=== PATIENT | male | born 1955 | race Caucasian/White ===

== ENCOUNTER 2021-11-30 00:06 | Day surgery (SDC) | payer MEDICARE, SELFPAY ==
[2021-11-04 12:41] VITALS: BMI 24.4
--- NOTE | 2021-11-15 13:58 | PC.NURSE ---
Reached patient regarding new scheduled colonoscopy procedure times for 11/30/21. Patient states there has been no changes to medical history since last phone call. He did state that he has stopped taking his thyroid medication, which has since been updated in his MAR. Efrain is aware of his updated procedure times and verbalizes understanding of prep instructions.
[2021-11-30 10:55] VITALS: BP 128/82; PULSE 64; RESP 18; TEMP 36.4; O2SAT 99
[2021-11-30] MEDS: LACTATED RINGERS 1,000 ML 150 ML IV CONT (10:56)
--- NOTE | 2021-11-30 11:15 | P.PNAN_ITS ---
Anes - Initial Pre Proc Eval Procedure: Operation Date: 11/30/21 11:30 Proposed Procedures p Screening Colonoscopy - Josemanuel Dumont MD Date/Time: 11/30/21 11:15 Surgeon: Josemanuel Dumont MD Pre Op Diagnosis: neoplasm screening Patient Data Age: 66 Gender: M Height: 1.8 m Weight: 79.7 kg Last Vital Signs Temp 36.4 C 11/30/21 10:55 Pulse 64 11/30/21 10:55 Resp 18 11/30/21 10:55 BP 128/82 11/30/21 10:55 Pulse Ox 99 11/30/21 10:55 O2 Del Method Room Air 11/30/21 10:55 Allergies Allergy/AdvReac Type Severity Reaction Status Date / Time No Known Allergies Allergy Verified 11/30/21 10:54 Home Medications Medication Instructions Recorded Confirmed Type aspirin 81 mg tablet,delayed 81 mg PO DAILY 10/07/21 11/30/21 History release (Adult Low Dose Aspirin) multivitamin (Daily Multi-Vitamin 1 tablet PO DAILY 10/07/21 11/30/21 History tablet) Patient hx anesthesia problems: none Family hx anesthesia problems: none Results Review: All pre-operative results and documents have been reviewed as part of the pre- operative evaluation. [facility] Surgical History Surgical History (Updated 11/30/21 @ 11:18 by Patrice Tesfaye MD) H/O colonoscopy Social History Social History Smoking status: Former smoker Second hand tobacco smoke exposure: No Alcohol intake: current Drinks per week: 3 Substance use type: does not use Living arrangements: with family Spiritual care concerns: No Anes - Eval Final PreProcedure Day of Procedure 11/30/21 11:15 Patient weight: normal Heart: regular rate and rhythm Lungs: clear to auscultation Airway: Mallampati scale class 1 Neurological: alert and oriented Last oral intake: >/= 8 hours ASA classification: I Emergent: no Anesthetic plan: proceed Anesthesia type and monitoring: general GIVS and standard monitoring Results Review: All pre-operative results and documents have been reviewed as part of the pre- operative evaluation. Informed Consent: The patient's anesthetic plan and its attendant risks and benefits were discussed with the patient/family/POA. Questions were solicited and answers provided to the satisfaction of the patient/family/POA.
--- NOTE | 2021-11-30 11:44 | P.HP_ITS ---
H&P: HPI History of Present Illness Date/Time: 11/30/21 11:44 Chief Complaint: Neoplasia screening. Narrative: This is a 66-year-old white male patient who presents for neoplasia screening colonoscopy. Patient's current weight appetite and bowel movements are normal. He denies abdominal pain. He has had no bleeding. Family history is noncontributory. Patient's last colonoscopy was 10 years ago. He presents today for neoplasia screening. Review of Systems Review of Systems: Review systems is noncontributory. [facility] Surgical History Surgical History (Updated 11/30/21 @ 11:18 by Patrice Tesfaye MD) H/O colonoscopy Social History Social History Smoking status: Former smoker Second hand tobacco smoke exposure: No Alcohol intake: current Drinks per week: 3 Substance use type: does not use Living arrangements: with family Spiritual care concerns: No Meds Home Medications and Allergies Home Medications Medication Instructions Recorded Confirmed Type aspirin 81 mg tablet,delayed 81 mg PO DAILY 10/07/21 11/30/21 History release (Adult Low Dose Aspirin) multivitamin (Daily Multi-Vitamin 1 tablet PO DAILY 10/07/21 11/30/21 History tablet) Allergies Allergy/AdvReac Type Severity Reaction Status Date / Time No Known Allergies Allergy Verified 11/30/21 10:54 Vital Signs Vital Signs - 24 hr 11/30/21 10:55 Temperature 97.6 F Pulse Rate 64 Respiratory Rate 18 Blood Pressure 128/82 Pulse Oximetry 99 Oxygen Delivery Room Air Exam Narrative: Physical exam reveals patient to be alert. Vital signs stable. HEENT exam is unremarkable. Patient is anicteric. Lungs are clear to auscultation and percussion. Heart is without murmur or extra sounds. Abdominal exam bowel sounds are present soft nontender with no organomegaly. Digital external rectal exam is normal. Assessment and Plan Assessment and plan (1) Screening for colon cancer: Code(s): Z12.11 - Encounter for screening for malignant neoplasm of colon Status: Acute Assessment and Plan: Patient presents today for screening colonoscopy. He appears to be at average risk for colon polyps. Further recommendations may be given after endoscopy.
[2021-11-30 12:27] VITALS: BP 97/64; PULSE 63; RESP 18; O2SAT 98
[2021-11-30 12:37] VITALS: BP 97/68; PULSE 60; RESP 18; O2SAT 100
[2021-11-30 12:47] VITALS: BP 115/73; PULSE 55; RESP 18; O2SAT 99
== END 2021-11-30 12:55 | disposition home or self-care (01) ==
PROVIDERS: PCP Family Medicine; Visit Provider Internal Medicine Gastroenterology
PROC: 0DJD8ZZ Inspection of Lower Intestinal Tract, Via Natural or Artificial Opening Endoscopic (ICD-10-PCS; CPT 45378; principal; 2021-11-30 11:30)
DX: Z12.11 Encounter for screening for malignant neoplasm of colon (principal); K64.8 Other hemorrhoids; Z87.891 Personal history of nicotine dependence; Z79.82 Long term (current) use of aspirin
CPT/HCPCS: G0121; J2704; J7120

== ENCOUNTER → 2022-05-04 08:21 | Outpatient (CLI) | payer MEDICARE, SELFPAY ==
--- NOTE | ~2022-05-04 | US_ITS ---
Ultrasound of the Abdominal Aorta INDICATION: Abdominal aortic aneurysm TECHNIQUE: Grayscale, color Doppler, and pulsed Doppler images of the aorta and common iliac arteries were obtained. COMPARISON: None. FINDINGS: Maximum vascular dimensions are as follows: Proximal aorta: 2.8 cm Mid aorta: 2.4 cm Distal aorta: 2.3 cm Right common iliac artery: 1.6 cm Left common iliac artery: 1.5 cm There is no evidence of abdominal aortic aneurysm. IMPRESSION: No abdominal aortic aneurysm. Reviewed, dictated and finalized at location M. NEYMAN MACHINIST
== END ==
PROVIDERS: PCP Physician Assistant; Visit Provider Physician Assistant
DX: Z13.6 Encounter for screening for cardiovascular disorders (principal)
CPT/HCPCS: 76706

== ENCOUNTER 2023-06-30 09:51 | Outpatient (CLI) | payer MEDICARE, SELFPAY ==
[2023-06-30 21:24] LABS: Free T4 Free Thyroxine 0.86 ng/mL (0.78-2.19)
[2023-06-30 22:46] LABS: Total Triiodothyronine (T3) 1.23 NG/ML (0.97-1.69)
== END 2023-06-30 09:52 | disposition home or self-care (01) ==
LOC: ANHGOSHLAB 09:52
PROVIDERS: PCP Emergency Medicine; Visit Provider Emergency Medicine
DX: E03.8 Other specified hypothyroidism (principal)
CPT/HCPCS: 36415; 84439; 84443; 84480

== ENCOUNTER 2023-12-14 09:34 | Outpatient (CLI) | payer MEDICARE, SELFPAY ==
[2023-12-14 14:15] LABS: Free T4 Free Thyroxine 0.88 ng/mL (0.78-2.19)
[2023-12-14 14:22] LABS: Alanine Aminotransferase 14 U/L (6-50); Alkaline Phosphatase 67 U/L (38-126); Anion Gap 8 mmol/L (4-12); Aspartate Amino Transferase 55 U/L (17-59); Bilirubin,Total 0.9 mg/dL (0.2-1.3); Blood Urea Nitrogen 17 mg/dL (9-20); Calcium 8.8 mg/dL (8.4-10.2); Carbon Dioxide 28 mmol/L (22-30); Chloride 104 mmol/L (98-107); Cholesterol 177 mg/dL (0-200); Estimated Glomerular Filt Rate > 60; Glucose 88 mg/dL (65-110); HDL Direct 37 mg/dL; Potassium 4.2 mmol/L (3.4-5.0); Sodium 140 mmol/L (137-145); Triglycerides 120 mg/dL (<150)
[2023-12-14 14:33] LABS: LDL Cholesterol Direct 114 mg/dL
[2023-12-14 14:51] LABS: Total Triiodothyronine (T3) 1.13 NG/ML (0.97-1.69)
[2023-12-18 09:48] LABS: Thyroid Peroxidase Antibodies 145 IU/mL (<9)
== END 2023-12-14 09:35 | disposition home or self-care (01) ==
LOC: ANHGOSHLAB 09:35
PROVIDERS: PCP Emergency Medicine; Visit Provider Emergency Medicine
DX: E78.00 Pure hypercholesterolemia, unspecified (principal); E07.9 Disorder of thyroid, unspecified; E03.8 Other specified hypothyroidism
CPT/HCPCS: 36415; 80053; 80061; 84439; 84443; 84480; 86376

== ENCOUNTER 2024-05-01 19:18 | Inpatient (IN) | payer MEDICARE, SELFPAY ==
--- NOTE | ~2024-05-01 | CT_ITS ---
CT of the Abdomen and Pelvis: Indication: Elevated bilirubin, status post recent cholecystectomy Technique: 2.5 mm axial scans were obtained through the abdomen and pelvis following intravenous adm inistration of 100 cc of Omnipaque 350. Dose reduction technique was used on this scan by utilizing a utomated exposure control and iterative reconstruction technique. The dose-length product (DLP) was 4 79.62 mGy-cm. COMPARISON: 05/01/2024 Findings: Scans through the lung bases demonstrate small right pleural effusion with bibasilar atele ctatic change. Status post interval cholecystectomy. Percutaneous postoperative drainage catheter present. There is a fluid collection in the gallbladder fossa measuring 4.5 x 2.9 x 6.8 cm in size, which could reflect abscess or possibly biloma. The liver, spleen, pancreas, adrenals and kidneys are within normal limits. No evidence of aortic an eurysm. No lymphadenopathy. No bowel obstruction or bowel wall thickening. There is no evidence to suggest acute appendicitis. Images through the pelvis were performed. Urinary bladder unremarkable. Prostate gland mildly enlarge d. Small amount of pelvic ascites, versus possibly early/forming pelvic abscess. Impression: 1.5 x 2.9 x 6 point centimeters fluid collection the gallbladder fossa, suspicious for abscess, or po ssibly biloma. Additional pelvic ascites versus possible early developing abscess, with possible fluid collection me asuring 6.6 x 3.3 cm. Small right pleural effusion with bibasilar atelectatic change. Reviewed, dictated and finalized at [facility]. D RADIO TECHNICIAN Impression: 1.5 x 2.9 x 6 point centimeters fluid collection the gallbladder fossa, suspici ous for abscess, or possibly biloma. Additional pelvic ascites versus possible early developing abscess, with possib le fluid collection measuring 6.6 x 3.3 cm. Small right pleural effusion with bibasilar atelectatic change.
--- NOTE | ~2024-05-01 | NM_ITS ---
EXAMINATION: NM hepatobiliary wo pharm DATE: 05/06/2024 14:48 INDICATION: Hyperbilirubinemia post recent cholecystectomy. Assess for bile leak. COMPARISON: None. TECHNIQUE: 4.9 mCi Tc-99m mebrofenin (Choletec) was administered intravenously. Scintigraphic images of the abdomen were obtained for one hour. Additional 1.5 hour delayed anterior and right lateral sc intigrams were obtained. FINDINGS: There is normal clearance of radiotracer from the blood pool. There is homogeneous tracer u ptake by the liver. Activity progresses to the common bile duct by 20 minutes with activity seen in t he small bowel at 30 minutes. Bowel activity progressively accumulates over the following 1 hour. No evident bile leak. Gallbladder not visualized consistent with provided history of cholecystectomy. Th ere is a greater degree of activity remaining in the liver on the 1 hour and 1.5 hour images which hurtado ggests some degree of biliary obstruction versus hepatic dysfunction. IMPRESSION: 1. No evident bile leak. 2. Delayed excretion of activity from the liver which suggests either hepatic dysfunction or partial biliary obstruction. Reviewed, dictated and finalized at location B. MAKER MACHINE TENDER IMPRESSION: 1. No evident bile leak. 2. Delayed excretion of activity from the liver which suggests either hepatic d ysfunction or partial biliary obstruction.
--- NOTE | ~2024-05-01 | CT_ITS ---
EXAMINATION: CT abdomen pelvis w con DATE: 05/01/2024 22:24 INDICATION: Lower abdominal pain. Fever. Nausea and vomiting. TECHNIQUE: Computed tomography (CT) of the abdomen and pelvis was performed with 100 mL Omnipaque 350 intravenous contrast. Automated exposure control and iterative reconstruction technique were employe d. The dose-length product was 299.04 mGy-cm. COMPARISON: None. FINDINGS: The visualized portions of the lung bases demonstrate mild atelectasis. No pleural effusion . The heart size is normal. No pericardial effusion. The liver is normal. There are gallstones in the gallbladder, which is distended with wall thickening and adjacent fluid and fat stranding, consisten t with acute cholecystitis. The spleen, pancreas, adrenal glands, and right kidney are normal. There are cysts in left kidney measuring up to 11 mm. The appendix is normal. There are no dilated loops of bowel. There are no pathologically enlarged lymph nodes. There is trace pelvic ascites. There is mod erate lower lumbar spondylosis. IMPRESSION: 1. Acute cholecystitis. Reviewed, dictated and finalized at location A. ING MACHINE OPERATOR AUTOMATIC IMPRESSION: 1. Acute cholecystitis.
[2024-05-01 19:20] VITALS: BP 154/88; PULSE 117; RESP 20; TEMP 36.9; O2SAT 100
[2024-05-01 21:21] LABS: Hematocrit 43.8 % (42.0-52.0); Hemoglobin 15.7 g/dL (14.0-18.0); Mean Corpuscular HGB Conc 35.8 g/dl (32-36); Mean Corpuscular Hemoglobin 31.8 pg (26-34); Mean Corpuscular Volume 88.7 fl (80-100); Mean Platelet Volume 10.5 fl (7.4-10.4); Platelet Count Result 173 k/mm3 (150-375); Red Blood Count 4.94 M/mm3 (4.6-6.20); Red Cell Distribution Width 12.7 % (11.5-14.5); White Blood Count 12.6 K/mm3 (4.5-10.0)
[2024-05-01 21:32] LABS: Alanine Aminotransferase 24 U/L (6-50); Albumin Level 3.8 g/dL (3.5-5.1); Alkaline Phosphatase 135 U/L (38-126); Anion Gap 4 mmol/L (4-12); Aspartate Amino Transferase 22 U/L (17-59); Bilirubin,Total 3.3 mg/dL (0.2-1.3); Blood Urea Nitrogen 22 mg/dL (9-20); Calcium 8.9 mg/dL (8.4-10.2); Carbon Dioxide 25 mmol/L (22-30); Chloride 107 mmol/L (98-107); Estimated CRCL calculation 60 ml/min; Estimated Glomerular Filt Rate > 60; Glucose 136 mg/dL (65-110); Lactic Acid Reflex 1.9 mmol/L (0.7-2.0); Lipase 31 U/L (23-300); Potassium 3.5 mmol/L (3.4-5.0); Sodium 136 mmol/L (137-145)
[2024-05-01 21:41] LABS: Band Neutrophils Percent 8 % (0-6); Lymphocytes Absolute Manual 0.25 K/mm3 (1.1-4.5); Monocytes Absolute Manual 0.12 K/mm3 (0.1-0.90); Monocytes Percent Manual 1 % (3-9); Neutrophils Absolute Manual 12.22 K/mm3 (1.3-6.7); Neutrophils Percent Manual 89 % (46-73); Total Cells Counted 100
[2024-05-01 21:42] LABS: Platelet Estimate Adequate (Adequate); Schistocytes None Seen
[2024-05-01 21:54] VITALS: TEMP 39.2
[2024-05-01 21:57] LABS: Influenza A QL RT-PCR Negative (Negative); Influenza B QL RT-PCR Negative (Negative); RSV RNA, RT-PCR Negative (Negative); SARS-CoV-2 RNA PCR Negative (Negative)
[2024-05-01 22:07] LABS: Magnesium 1.8 mg/dL (1.6-2.3)
--- NOTE | 2024-05-01 22:43 | ED_ITS ---
HPI - Abdominal Pain General Chief Complaint: Abdominal Pain Stated Complaint: lower abdominal pain Time Seen by Provider: 05/01/24 20:59 Source: patient Mode of arrival: ambulatory Limitations: no limitations History of Present Illness HPI narrative: Patient is a 69-year-old male who presents the ED with report of abdominal pain. Patient reports having pain throughout his upper abdomen over the last 3 days. Thought it may be related to acid reflux. Has been taking Pepto-Bismol and Tylenol, with some initial improvement, but denied improvement today. States today pain is more severe throughout his lower abdomen. Reports nausea, fevers- up to 103F. Also reports constipation X3 days, decreased appetite. Denies cough or cold symptoms, known sick contacts, urinary complaints. Related Data Home Medications ?Medication ?Instructions ?Recorded ?Confirmed ?Last Taken ?Type aspirin 81 mg tablet,delayed 81 mg PO DAILY 10/07/21 12/26/23 Unknown History release (Adult Low Dose Aspirin) multivitamin (Daily Multi-Vitamin 1 tablet PO DAILY 10/07/21 12/26/23 Unknown History tablet) Allergies Allergy/AdvReac Type Severity Reaction Status Date / Time No Known Allergies Allergy Verified 12/26/23 11:22 Review of Systems 2 Review of Systems: All systems reviewed & are unremarkable except as noted in HPI. All systems reviewed & are unremarkable except as noted in HPI and below PMFSH Surgical History Surgical History H/O colonoscopy Social History Social History Smoking status: Former smoker Second hand tobacco smoke exposure: No Alcohol intake: current Drinks per week: 3 Substance use type: does not use Lack of Transportation: No Lack of Food: Never True Current Housing: I Have Housing Concerned About Future Housing: No Difficulty Paying Gas/Electric Bills: No Difficulty Paying for Meds: No Currently Unemployed: No Education: Trade/Vocational Certificate Difficulty w/ Childcare or Family Care: No Living arrangements: with family Spiritual care concerns: No Exam 2 Narrative: GENERAL: Mildly ill and uncomfortable appearing, well-nourished, non-toxic, in no acute distress. HEAD: Normocephalic, atraumatic. RESPIRATORY: Airway patent, respirations nonlabored. Clear to auscultation bilaterally, no rales, rhonchi, wheezing. CARDIOVASCULAR: Tachycardic with regular rhythm without murmurs, rubs, or gallops. ABDOMINAL: Diffuse tenderness throughout abdomen, nondistended, voluntary guarding. Normoactive BS. MUSCULOSKELETAL: Moves all extremities. No gross deformities. SKIN: Warm, dry, mildly flushed appearing NEURO: A&O X3. Speech clear. Cranial nerves II-XII grossly intact No ataxic movements. PSYCHIATRIC: Appropriate mood and affect. Normal interaction. Course Vital Signs Vital signs: Vital Signs Temperature 98.5 F 05/01/24 19:20 Pulse Rate 117 H 05/01/24 19:20 Respiratory Rate 20 05/01/24 19:20 Blood Pressure 154/88 H 05/01/24 19:20 Pulse Oximetry 100 05/01/24 19:20 Oxygen Delivery Room Air 05/01/24 19:20 Temperature 102.6 F H 05/01/24 21:54 Pulse Rate 117 H 05/01/24 19:20 Respiratory Rate 20 05/01/24 19:20 Blood Pressure 154/88 H 05/01/24 19:20 Pulse Oximetry 100 05/01/24 19:20 Oxygen Delivery Room Air 05/01/24 19:20 MDM - Abdominal Pain MDM Narrative Medical decision making narrative: Patient presented to ED with 3 day history of abdominal pain, fevers. Patient tachycardic and febrile upon arrival. Fluids and Tylenol initiated, pain and nausea medicine given. CBC with white blood cell count of 12.6. Neutrophil predominance of 89%, 8% bands. CMP with stable electrolytes, stable kidney function. Lactic acid within normal range at 1.9. Total bilirubin is elevated to 3.3. New from previous records. Normal AST and ALT. Alk phos is minimally elevated to 135. Lipase is within normal range. Viral swabs are negative. CT scan of abdomen/pelvis consistent with acute cholecystitis. Does show evidence of gallstones and GB thickening/distension, no evidence of common bile duct dilation, obvious obstructing stone/choledocholithiasis. Discussed case with Dr. Bartholomew, general surgery, accepted consult, admit to hospitalist team. Blood cultures obtained. Patient is meeting sepsis criteria. Ceftriaxone and Flagyl started. Discussed case with Dr. Johnson, hospitalist, accepted patient for admission. Patient and family in agreement with plan and need for admission. Medical Records Attestation: I reviewed the patient's medical records. Lab Data Attestation: I reviewed the patient's lab results. 05/01/24 21:12 05/01/24 21:12 Labs: Lab Results 05/01/24 Range/Units 21:12 WBC 12.6 H (4.5-10.0) K/mm3 RBC 4.94 (4.6-6.20) M/mm3 Hgb 15.7 (14.0-18.0) g/dL Hct 43.8 (42.0-52.0) % MCV 88.7 (80-100) fl MCH 31.8 (26-34) pg MCHC 35.8 (32-36) g/dl RDW 12.7 (11.5-14.5) % Plt Count 173 (150-375) k/mm3 MPV 10.5 H (7.4-10.4) fl Immature Gran % (Auto) Not Reportable Neut % (Auto) Not Reportable Lymph % (Auto) Not Reportable Brooks % (Auto) Not Reportable Eos % (Auto) Not Reportable Baso % (Auto) Not Reportable Lymph # (Auto) Not Reportable Brooks # (Auto) Not Reportable Eos # (Auto) Not Reportable Baso # (Auto) Not Reportable Abs Immat Gran (auto) Not Reportable Absolute Neuts (auto) Not Reportable Absolute Nucleated RBC Not Reportable Total Counted 100 Neutrophils % (Manual) 89 H (46-73) % Band Neutrophils % 8 H (0-6) % Lymphocytes % (Manual) 2.0 L (18-44) % Monocytes % (Manual) 1 L (3-9) % Nucleated RBC % Not Reportable Abs Neuts (Manual) 12.22 H (1.3-6.7) K/mm3 Abs Lymphs (Manual) 0.25 L (1.1-4.5) K/mm3 Abs Monocytes (Manual) 0.12 (0.1-0.90) K/mm3 Platelet Estimate Adequate (Adequate) Schistocytes None seen Sodium 136 L (137-145) mmol/L Potassium 3.5 (3.4-5.0) mmol/L Chloride 107 (98-107) mmol/L Carbon Dioxide 25 (22-30) mmol/L Anion Gap 4 (4-12) mmol/L BUN 22 H (9-20) mg/dL Creatinine 1.10 (0.7-1.3) mg/dL Estim Creat Clear Calc 60 ml/min Estimated GFR > 60 (59 - ) Glucose 136 H (65-110) mg/dL Lactic Acid 1.9 (0.7-2.0) mmol/L Calcium 8.9 (8.4-10.2) mg/dL Magnesium 1.8 (1.6-2.3) mg/dL Total Bilirubin 3.3 H (0.2-1.3) mg/dL AST 22 (17-59) U/L ALT 24 (6-50) U/L Alkaline Phosphatase 135 H (38-126) U/L Total Protein 7.0 (6.3-8.2) g/dL Albumin 3.8 (3.5-5.1) g/dL Lipase 31 (23-300) U/L Influenza A (RT-PCR) Negative (Negative) Influenza B (RT-PCR) Negative (Negative) RSV (RT-PCR) Negative (Negative) SARS-CoV-2 RNA (RT-PCR) Negative (Negative) Imaging Data Attestation: I personally reviewed and interpreted this imaging study as follows: Radiologist's impression: STAT RAD CT abd/pelvis: Impression: Findings suspicious for acute calculous cholecystitis. Incidental findings: Gallstones in the limited neck. Gallbladder wall thickening, gallbladder distention, and some pericholecystic hazy stranding. Left renal cyst. Small amount of free fluid in the pelvis. Discharge Plan Discharge Clinical Impression: Acute calculous cholecystitis Sepsis Qualifiers: Sepsis type: sepsis due to unspecified organism Sepsis acute organ dysfunction status: unspecified Qualified Code(s): A41.9 - Sepsis, unspecified organism Patient Disposition: Still a Patient Condition: Stable
[2024-05-01] MEDS: SODIUM CHLORIDE 0.9% IV 1,000 ML 999 ML IV CONT ×2 (22:53→22:54)
[2024-05-01] MEDS: ONDANSETRON INJ 4 MG/2 ML VIAL IV PUSH (22:54)
[2024-05-01] MEDS: MORPHINE SULFATE (*CRX) 4 MG/ML INJ IV PUSH (22:55)
[2024-05-01] MEDS: ACETAMINOPHEN 500 MG TABLET 1000 MG PO (22:56)
[2024-05-02] VITALS (21 sets, daily range): BP systolic 94–134; BP diastolic 58–79; PULSE 89–109; RESP 14–26; TEMP 36.2–37.9; O2SAT 91–100; BMI 25.3
--- NOTE | 2024-05-02 00:38 | PM.IMHP ---
H&P: HPI History of Present Illness Date/Time: 05/02/24 00:38 Chief Complaint: Abdominal pain Narrative: This is a 69-year-old male with no significant past medical history, patient is a former smoker. Presents to the emergency room with 3 days of right upper quadrant pain, poor per orally intake, chills. Pain got worse he rates it at 10/10 intensity under relieved by pain medication, patient was taking Tylenol at home. Preliminary workup was significant for acute cholecystitis. Review of Systems Review of Systems: Upper quadrant pain, chills. PMFSH Surgical History Surgical History H/O colonoscopy Social History Social History Smoking status: Former smoker Second hand tobacco smoke exposure: No Alcohol intake: current Drinks per week: 3 Substance use type: does not use Lack of Transportation: No Lack of Food: Never True Current Housing: I Have Housing Concerned About Future Housing: No Difficulty Paying Gas/Electric Bills: No Difficulty Paying for Meds: No Currently Unemployed: No Education: Trade/Vocational Certificate Difficulty w/ Childcare or Family Care: No Living arrangements: with family Spiritual care concerns: No Meds Home Medications and Allergies Home Medications ?Medication ?Instructions ?Recorded ?Confirmed ?Type aspirin 81 mg tablet,delayed 81 mg PO DAILY 10/07/21 12/26/23 History release (Adult Low Dose Aspirin) multivitamin (Daily Multi-Vitamin 1 tablet PO DAILY 10/07/21 12/26/23 History tablet) Allergies Allergy/AdvReac Type Severity Reaction Status Date / Time No Known Allergies Allergy Verified 12/26/23 11:22 Vital Signs Vital Signs - 24 hr 05/01/24 19:20 05/01/24 21:54 Temperature 98.5 F 102.6 F H Pulse Rate 117 H Respiratory Rate 20 Blood Pressure 154/88 H Pulse Oximetry 100 Oxygen Delivery Room Air H&P: Results Labs Labs: Short CBC 05/01/24 Range/Units 21:12 WBC 12.6 H (4.5-10.0) K/mm3 Hgb 15.7 (14.0-18.0) g/dL Hct 43.8 (42.0-52.0) % Plt Count 173 (150-375) k/mm3 BMP 05/01/24 21:12 Sodium 136 L Potassium 3.5 Chloride 107 Carbon Dioxide 25 BUN 22 H Creatinine 1.10 Glucose 136 H Calcium 8.9 Liver Function 05/01/24 Range/Units 21:12 Total Bilirubin 3.3 H (0.2-1.3) mg/dL AST 22 (17-59) U/L ALT 24 (6-50) U/L Alkaline Phosphatase 135 H (38-126) U/L Albumin 3.8 (3.5-5.1) g/dL Assessment and Plan Assessment and plan (1) Acute calculous cholecystitis: Code(s): K80.00 - Calculus of gallbladder with acute cholecystitis without obstruction Status: Acute Assessment and Plan: Admit to regular medical floor NPO IV fluids Patient started on Rocephin General surgery consult (2) Right upper quadrant pain: Code(s): R10.11 - Right upper quadrant pain Status: Acute Assessment and Plan: Likely secondary to cholecystitis Supportive care (3) Sepsis: Qualifiers: Sepsis acute organ dysfunction status: unspecified Sepsis type: sepsis due to unspecified organism Qualified Code(s): A41.9 - Sepsis, unspecified organism Code(s): A41.9 - Sepsis, unspecified organism Status: Acute Assessment and Plan: Secondary to cholecystitis Hospitalist MIPS Advance Care Plan I have confirmed that the patient's Advanced Care Plan is present, code status is documented, or surrogate decision maker is listed in patient medical record.: Yes Medication Reconciliation I have utilized all available resources to obtain, update and review the patients current medications (includes all prescriptions, OTC, herbals, cannabis, and nutritional supplements).: Yes
[2024-05-02] MEDS: HYDROmorphone HCL INJ (*CRX) 1 MG/ML SYR 0.5 MG IV PUSH ×3 (00:45→07:56)
--- NOTE | 2024-05-02 00:47 | PC.NURSE ---
this rn asked patient to provide a urine sample at this time. pt states, I am in a lot of pain, I do not even think thats possible right now.
[2024-05-02] MEDS: HYDROmorphone HCL INJ (*CRX) 1 MG/ML SYR IV PUSH (01:09)
--- NOTE | 2024-05-02 01:17 | ADMGEN ---
This patient, Efrain Pak, was admitted to [facility] Room 314-02. Patient/family oriented to hospital policies and general routines including ID bracelet, bed and alarms, visiting hours, pain management, procedures, bathroom and other care routines, personal items, smoking policy, room service/diet, and visiting hours. Information on how to activate the Rapid Response Team has been discussed. Patient/Family are encouraged to report perceived risks to care and to ask questions if they do not understand what they are told or what they should do.
[2024-05-02] MEDS: SODIUM CHLORIDE 0.9% IV 1,000 ML 100 ML IV CONT (03:00)
[2024-05-02] MEDS: metroNIDAZOLE 500 MG/ISO 100ML 500 MG/100 ML BAG 100 MG IVPB (03:00)
[2024-05-02] MEDS: MORPHINE SULFATE (*CRX) 4 MG/ML INJ IV PUSH ×2 (03:00→15:45)
--- NOTE | 2024-05-02 06:53 | PM.IMPN ---
Progress Note: A&P Assessment and Plan (1) Sepsis: Qualifiers: Sepsis acute organ dysfunction status: unspecified Sepsis type: sepsis due to unspecified organism Qualified Code(s): A41.9 - Sepsis, unspecified organism Code(s): A41.9 - Sepsis, unspecified organism Status: Acute Assessment and Plan: Meets SIRS criteria: febrile, leukocytosis, tachycardia - lactic acid: 1.9 - s/p 2L sepsis bolus given in the ED - suspected source: cholecystitis - blood cultures drawn on 05/02: pending - antibiotics: Rocephin and Flagyl started on 05/02 - UA: ordered - CT abdomen/pelvis: acute cholecystitis (2) Acute calculous cholecystitis: Code(s): K80.00 - Calculus of gallbladder with acute cholecystitis without obstruction Status: Acute Assessment and Plan: - LFTs: tot bili 3.3, AST 22, ALT 24, alk phos 135. - Lipase WNL - CT abdomen/pelvis: acute cholecystitis - Monitor vital signs, I and O's, check stool output, neuro status and patient is a fall risk - Monitor serum electrolytes and CBC - Monitor lactic acid - IV pain management - Gentle IV fluid resuscitation - Diet: clears - Consult general surgery for further evaluation, appreciate assistance and recommendation s/p laparoscopic cholecystectomy with ADAN drain placement on 05/[address] Bartholomew Subjective Date/time seen: 05/02/24 06:53 Interval history: 69 year old male with no significant past medical history presents to the hospital for abdominal pain. Patient is pleasant lying comfortably in bed with family at bedside. He underwent a laparoscopic cholecystectomy today with Dr. Bartholomew. He is now tolerating clear liquid denying nausea vomiting and increased abdominal pain. he has no complaints at this time denying chest pain, shortness a breath, and palpitations. Review of Systems Review of Systems: All systems reviewed & are unremarkable except as noted in HPI and below Exam Narrative: AF HR 98 RR 16 SPO2 95 BP 112/66 General: male in no acute respiratory distress who is nontoxic appearing, lying semi recumbent in bed. HEENT: Normocephalic. Atraumatic. Extraocular movement intact. Sclera clear and anicteric. No facial asymmetry. Chest: Lungs are clear to auscultation bilaterally. No wheezes or crackles. CV: Heart was regular rate and rhythm. S1/S2. No murmurs, gallops, or rubs. Abd: Abdomen was soft. Nontender. Nondistended. Hypoactive bowel sounds. Incisions are clean/dry/intact with surgical glue, no erythema/edema/discharge. ADAN drain in place with serosanguinous drainage. Ext: No clubbing, cyanosis, or edema. 2+ DP pulses bilaterally. Neuro: Patient is alert.Speech is clear. Objective Data Vital Signs Vital Signs: Vital Signs - 24 hr 05/01/24 19:20 05/01/24 21:54 05/02/24 00:46 Temperature 98.5 F 102.6 F H Pulse Rate 117 H 109 H Respiratory Rate 20 25 H Blood Pressure 154/88 H 134/79 Pulse Oximetry 100 95 Oxygen Delivery Room Air Oxygen Flow Rate 05/02/24 01:10 05/02/24 01:12 05/02/24 02:15 Temperature 100.2 F H 98.0 F Pulse Rate 107 H 106 H Respiratory Rate 22 H 14 Blood Pressure 124/77 125/73 Pulse Oximetry 93 96 96 Oxygen Delivery Nasal Cannula Oxygen Flow Rate 2 05/02/24 04:00 05/02/24 06:00 Temperature 98.1 F Pulse Rate 92 102 H Respiratory Rate 14 Blood Pressure 126/74 Pulse Oximetry 97 Oxygen Delivery Oxygen Flow Rate Intake/Output Intake/Output: Intake & Output 04/29/24 04/30/24 05/01/24 05/02/24 23:59 23:59 23:59 23:59 Intake Total 1999 Balance 1999 Meds/Results Medications: Active Medications Generic Name Dose Route Start Last Admin Trade Name Freq PRN Reason Stop Dose Admin Acetaminophen 650 mg 05/01/24 23:27 Acetaminophen 650 Mg Suppository RECTAL Q4H PRN Mild Pain (1-3) or Fever Dextrose 12.5 gm 05/01/24 23:27 Dextrose 50% 25 Gm/50 Ml Syringe IV PUSH PRN PRN Hypoglycemia Protocol Glucagon 1 mg 05/01/24 23:27 Glucagon For Inj 1 Mg Vial IM PRN PRN Hypoglycemia Protocol Glucose 15 gm 05/01/24 23:27 Glucose Oral Gel 15 Gm Of Glucse In 37.5 Gm Tube PO PRN PRN Hypoglycemia Protocol Hydromorphone HCl 0.5 mg 05/01/24 23:27 05/02/24 04:13 Hydromorphone Hcl Inj (*Crx) 1 Mg/Ml Syr IV PUSH 0.5 mg Q4H PRN Administration Pain Rated 7-10 Ceftriaxone Sodium 1 gm in 50 mls @ 100 mls/hr 05/02/24 22:00 Rocephin 1 Gm/Ns 50 Ml IVPB Q24H GRAY Metronidazole 500 mg in 100 mls @ 100 mls/hr 05/02/24 13:00 Flagyl 500 Mg/Iso Soln 100 Ml IVPB Q8HR GRAY Sodium Chloride 1,000 mls @ 100 mls/hr 05/01/24 23:30 05/02/24 03:00 Normal Saline Iv IV CONT 100 mls/hr .Q10H GRAY Administration Dextrose 1,000 mls @ 100 mls/hr 05/01/24 23:27 Dextrose 5% 1,000 Ml IVPB PRN PRN Hypoglycemia Protocol Morphine Sulfate 4 mg 05/01/24 23:27 05/02/24 03:00 Morphine Sulfate (*Crx) 4 Mg/Ml Inj IV PUSH 4 mg Q2H PRN Administration Pain Rated 4-6 Ondansetron HCl 4 mg 05/01/24 23:27 Ondansetron Inj 4 Mg/2 Ml Vial IV PUSH Q4H PRN Nausea Labs Labs: Laboratory Results - last 24 hr 05/01/24 21:12 WBC 12.6 H RBC 4.94 Hgb 15.7 Hct 43.8 MCV 88.7 MCH 31.8 MCHC 35.8 RDW 12.7 Plt Count 173 MPV 10.5 H Immature Gran % (Auto) Not Reportable Neut % (Auto) Not Reportable Lymph % (Auto) Not Reportable [place] % (Auto) Not Reportable Eos % (Auto) Not Reportable Baso % (Auto) Not Reportable Lymph # (Auto) Not Reportable [place] # (Auto) Not Reportable Eos # (Auto) Not Reportable Baso # (Auto) Not Reportable Abs Immat Gran (auto) Not Reportable Absolute Neuts (auto) Not Reportable Absolute Nucleated RBC Not Reportable Total Counted 100 Neutrophils % (Manual) 89 H Band Neutrophils % 8 H Lymphocytes % (Manual) 2.0 L Monocytes % (Manual) 1 L Nucleated RBC % Not Reportable Abs Neuts (Manual) 12.22 H Abs Lymphs (Manual) 0.25 L Abs Monocytes (Manual) 0.12 Platelet Estimate Adequate Schistocytes None seen Sodium 136 L Potassium 3.5 Chloride 107 Carbon Dioxide 25 Anion Gap 4 BUN 22 H Creatinine 1.10 Estim Creat Clear Calc 60 Estimated GFR > 60 Glucose 136 H Lactic Acid 1.9 Calcium 8.9 Magnesium 1.8 Total Bilirubin 3.3 H AST 22 ALT 24 Alkaline Phosphatase 135 H Total Protein 7.0 Albumin 3.8 Lipase 31 Influenza A (RT-PCR) Negative Influenza B (RT-PCR) Negative RSV (RT-PCR) Negative SARS-CoV-2 RNA (RT-PCR) Negative Quality VTE Prophylaxis VTE prophylaxis: mechanical ordered
[2024-05-02 07:41] LABS: Basophils Percent Auto 0.3 % (0.2-1.2); Eosinophils Absolute Auto 0.2 K/mm3 (0-0.3); Eosinophils Percent Auto 1.6 % (0-4.4); Hematocrit 41.1 % (42.0-52.0); Hemoglobin 13.9 g/dL (14.0-18.0); Immature Granulocyte Absolute 0.49 K/mm3 (0.00-0.031); Immature Granulocyte Percent A 3.5 % (0-0.5); Lymphocytes Absolute Auto 0.51 K/mm3 (0.9-3.2); Lymphocytes Percent Auto 3.6 % (18.3-44.2); Mean Corpuscular HGB Conc 33.8 g/dl (32-36); Mean Corpuscular Hemoglobin 31.7 pg (26-34); Mean Corpuscular Volume 93.6 fl (80-100); Mean Platelet Volume 10.9 fl (7.4-10.4); Monocytes Absolute Auto 0.8 K/mm3 (0.1-0.6); Monocytes Percent Auto 5.4 % (2.6-8.5); Neutrophils Percent Auto 85.6 % (45.5-73.1); Platelet Count Result 170 k/mm3 (150-375); Red Blood Count 4.39 M/mm3 (4.6-6.20); Red Cell Distribution Width 13.1 % (11.5-14.5); White Blood Count 14.1 K/mm3 (4.5-10.0)
[2024-05-02 07:55] LABS: Alanine Aminotransferase 19 U/L (6-50); Albumin Level 3.3 g/dL (3.5-5.1); Alkaline Phosphatase 97 U/L (38-126); Anion Gap 3 mmol/L (4-12); Aspartate Amino Transferase 19 U/L (17-59); Bilirubin,Total 3.4 mg/dL (0.2-1.3); Blood Urea Nitrogen 26 mg/dL (9-20); Calcium 8.1 mg/dL (8.4-10.2); Carbon Dioxide 27 mmol/L (22-30); Chloride 108 mmol/L (98-107); Estimated CRCL calculation 45 ml/min; Estimated Glomerular Filt Rate 46; Glucose 134 mg/dL (65-110); Potassium 4.9 mmol/L (3.4-5.0); Sodium 138 mmol/L (137-145)
[2024-05-02 08:09] LABS: Anisocytosis 1+; Burr Cells 1+; Platelet Estimate Adequate (Adequate); Schistocytes None Seen
--- NOTE | 2024-05-02 08:22 | WPDHPUPDATE1 ---
History and Physical Update Update Date/Time: 05/02/24 08:22 History and Physical has been reviewed, including an updated exam of the patient. There are NO changes in the patient's condition. Risks, benefits, and alternatives have been discussed and questions answered. Patient agrees to proceed with procedure.
--- NOTE | 2024-05-02 08:28 | P.CONGS_ITS ---
Assessment and Plan Assessment and plan (1) Acute calculous cholecystitis: Code(s): K80.00 - Calculus of gallbladder with acute cholecystitis without obstruction Status: Acute Assessment and Plan: * I have reviewed the CT and discussed the findings with the patient. He has evidence of acute cholecystitis and has also been experiencing fevers concerning for cholangitis or infected cholecystitis. There is no sign of biliary duct dilation but liver enzymes are elevated. This is likely related to the inflammatory response but could also be a sign of common bile duct stone. Cholangiogram will be technically difficult secondary to the significant inflammation, therefore will have to trend liver enzymes postoperatively and consider MRCP if persistently eleveated. I have recommended proceeding with Laparoscopic cholecystectomy, possible open. I discussed the procedure, risks, benefits, and alternatives. Questions answered. He was started on Zosyn in the ED. Will continue this perioperatively. (2) Sepsis: Qualifiers: Sepsis acute organ dysfunction status: unspecified Sepsis type: sepsis due to unspecified organism Qualified Code(s): A41.9 - Sepsis, unspecified organism Code(s): A41.9 - Sepsis, unspecified organism Status: Acute (3) Transaminitis: Code(s): R74.01 - Elevation of levels of liver transaminase levels Status: Acute (4) Hyperbilirubinemia: Code(s): E80.6 - Other disorders of bilirubin metabolism Status: Acute History of Present Illness Consult details Consult date: 05/02/24 Reason for consult: other (Acute cholecystitis) Requesting physician: Ami Curiel PA-C Narrative: This is a 69 yo man who presented to the ED last night with RUQ pain and fevers that started 3 days ago. He was having some abdominal pain and acid reflux the night before it started. He thought maybe he had the flu at first but symptoms persisted. He did have a little nausea but no vomiting. Denies change in bowel habits. Review of Systems 2 Review of Systems: All systems reviewed & are unremarkable except as noted in HPI and below Eyes: Eyes: Denies change in vision ENT: Denies hearing loss, Denies neck pain and Denies sore throat Cardiovascular: Cardiovascular: Denies chest pain and Denies dyspnea Respiratory: Respiratory: Denies cough, Denies dyspnea and Denies wheezing Gastrointestinal: Gastrointestinal: Reports as per HPI Genitourinary: Genitourinary: Denies hematuria and Denies dysuria Musculoskeletal: Musculoskeletal: Denies arthralgias, Denies joint swelling and Denies neck pain Allergic/Immunologic: Allergic/Immunologic: Denies wheezing PMFSH Surgical History Surgical History H/O colonoscopy Social History Social History Smoking status: Never smoker Second hand tobacco smoke exposure: No Alcohol intake: current Drinks per week: 2 Substance use: never Substance use type: does not use Do You Feel Safe in your Home?: Yes Lack of Transportation: No Lack of Food: Never True Current Housing: I Have Housing Concerned About Future Housing: No Difficulty Paying Gas/Electric Bills: No Difficulty Paying for Meds: No Currently Unemployed: No Education: Trade/Vocational Certificate Difficulty w/ Childcare or Family Care: No Living arrangements: with family Spiritual care concerns: No Meds Home Medications and Allergies Home Medications ?Medication ?Instructions ?Recorded ?Confirmed ?Type aspirin 81 mg tablet,delayed 81 mg PO DAILY 10/07/21 05/02/24 History release (Adult Low Dose Aspirin) multivitamin (Daily Multi-Vitamin 1 tablet PO DAILY 10/07/21 05/02/24 History tablet) Allergies Allergy/AdvReac Type Severity Reaction Status Date / Time No Known Allergies Allergy Verified 12/26/23 11:22 Vital Signs Vital Signs - 24 hr 05/01/24 19:20 05/01/24 21:54 05/02/24 00:46 Temperature 98.5 F 102.6 F H Pulse Rate 117 H 109 H Respiratory Rate 20 25 H Blood Pressure 154/88 H 134/79 Pulse Oximetry 100 95 Oxygen Delivery Room Air Oxygen Flow Rate 05/02/24 01:10 05/02/24 01:12 05/02/24 02:15 Temperature 100.2 F H 98.0 F Pulse Rate 107 H 106 H Respiratory Rate 22 H 14 Blood Pressure 124/77 125/73 Pulse Oximetry 93 96 96 Oxygen Delivery Nasal Cannula Oxygen Flow Rate 2 05/02/24 04:00 05/02/24 06:00 05/02/24 08:22 Temperature 98.1 F 99.1 F Pulse Rate 92 102 H 96 Respiratory Rate 14 Blood Pressure 126/74 127/73 Pulse Oximetry 97 93 Oxygen Delivery Room Air Oxygen Flow Rate Exam 2 Const: General: alert; No acute distress Orientation/consciousness: patient oriented x3 Limitations: no limitations HENMT: Head: normocephalic and atraumatic Ears: hearing grossly normal bilaterally Face/Nose/Sinus: Normal external nose present and Normal nares present Mouth: Yes Normal oral and palatal mucosa present and Yes moist mucous membranes Eyes: General: appearance normal, both eyes and all related structures C onjunctivae: conjunctivae normal Sclera: sclerae normal Pupils: Equal, round and reactive pupils present EOM: EOMs intact bilaterally Neck: Neck: normal visual inspection, full ROM, no lymphadenopathy, supple and no JVD Lymphatic: no lymphadenopathy noted Chest: Chest palpation & inspection: normal inspection of the chest Resp: Effort & Inspection: normal respiratory effort and able to speak in complete sentences Auscultation: clear to auscultation bilaterally P ercussion: percussion normal Cardio: Jugular venous distension: no JVD Rate: regular rate Rhythm: r egular rhythm Heart sounds: S1 normal heart sound present and S2 normal heart sound present Peripheral pulses: Peripheral pulses 2+ throughout GI: GI Palp: Yes Firmness to palpation present (GI), Yes Tenderness to palpation present (GI) (RUQ) and Yes Guarding due to palpation present (GI) (RUQ) Auscultation: normal bowel sounds : General: Yes no CVA tenderness Back/Spine/Pelvis: Back: no CVA tenderness Skin: General skin exam: normal color and dry skin Neuro: General: patient oriented x3, gait normal, moves all extremities, no focal motor deficits and CN's II-XI intact bilaterally Cranial nerves: Yes Equal, round and reactive pupils present Speech: normal speech Extrem: General: normal to inspection and capillary refill normal Results Labs 05/02/24 07:20 05/02/24 07:20 Labs: Abnormal lab results 05/01/24 05/02/24 Range/Units 21:12 07:20 WBC 12.6 H 14.1 H (4.5-10.0) K/mm3 RBC 4.39 L (4.6-6.20) M/mm3 Hgb 13.9 L (14.0-18.0) g/dL Hct 41.1 L (42.0-52.0) % MPV 10.5 H 10.9 H (7.4-10.4) fl Immature Gran % (Auto) 3.5 H (0-0.5) % Neut % (Auto) 85.6 H (45.5-73.1) % Lymph % (Auto) 3.6 L (18.3-44.2) % Lymph # (Auto) 0.51 L (0.9-3.2) K/mm3 [place] # (Auto) 0.8 H (0.1-0.6) K/mm3 Abs Immat Gran (auto) 0.49 H (0.00-0.031) K/mm3 Absolute Neuts (auto) 12.0 H (1.3-6.7) K/mm3 Neutrophils % (Manual) 89 H (46-73) % Band Neutrophils % 8 H (0-6) % Lymphocytes % (Manual) 2.0 L (18-44) % Monocytes % (Manual) 1 L (3-9) % Abs Neuts (Manual) 12.22 H (1.3-6.7) K/mm3 Abs Lymphs (Manual) 0.25 L (1.1-4.5) K/mm3 Sodium 136 L (137-145) mmol/L Chloride 108 H (98-107) mmol/L Anion Gap 3 L (4-12) mmol/L BUN 22 H 26 H (9-20) mg/dL Creatinine 1.50 H (0.7-1.3) mg/dL Estimated GFR 46 L (59 - ) Glucose 136 H 134 H (65-110) mg/dL Calcium 8.1 L (8.4-10.2) mg/dL Total Bilirubin 3.3 H 3.4 H (0.2-1.3) mg/dL Alkaline Phosphatase 135 H (38-126) U/L Total Protein 6.0 L (6.3-8.2) g/dL Albumin 3.3 L (3.5-5.1) g/dL Diabetes panel 05/01/24 05/02/24 Range/Units 21:12 07:20 Sodium 136 L 138 (137-145) mmol/L Potassium 3.5 4.9 (3.4-5.0) mmol/L Chloride 107 108 H (98-107) mmol/L Carbon Dioxide 25 27 (22-30) mmol/L BUN 22 H 26 H (9-20) mg/dL Creatinine 1.10 1.50 H (0.7-1.3) mg/dL Glucose 136 H 134 H (65-110) mg/dL Calcium 8.9 8.1 L (8.4-10.2) mg/dL AST 22 19 (17-59) U/L ALT 24 19 (6-50) U/L Alkaline Phosphatase 135 H 97 (38-126) U/L Total Protein 7.0 6.0 L (6.3-8.2) g/dL Albumin 3.8 3.3 L (3.5-5.1) g/dL Calcium panel 05/01/24 05/02/24 Range/Units 21:12 07:20 Calcium 8.9 8.1 L (8.4-10.2) mg/dL Albumin 3.8 3.3 L (3.5-5.1) g/dL Pituitary panel 05/01/24 05/02/24 Range/Units 21:12 07:20 Sodium 136 L 138 (137-145) mmol/L Potassium 3.5 4.9 (3.4-5.0) mmol/L Chloride 107 108 H (98-107) mmol/L Carbon Dioxide 25 27 (22-30) mmol/L BUN 22 H 26 H (9-20) mg/dL Creatinine 1.10 1.50 H (0.7-1.3) mg/dL Glucose 136 H 134 H (65-110) mg/dL Calcium 8.9 8.1 L (8.4-10.2) mg/dL Adrenal panel 05/01/24 05/02/24 Range/Units 21:12 07:20 Sodium 136 L 138 (137-145) mmol/L Potassium 3.5 4.9 (3.4-5.0) mmol/L Chloride 107 108 H (98-107) mmol/L Carbon Dioxide 25 27 (22-30) mmol/L BUN 22 H 26 H (9-20) mg/dL Creatinine 1.10 1.50 H (0.7-1.3) mg/dL Glucose 136 H 134 H (65-110) mg/dL Calcium 8.9 8.1 L (8.4-10.2) mg/dL Total Bilirubin 3.3 H 3.4 H (0.2-1.3) mg/dL AST 22 19 (17-59) U/L ALT 24 19 (6-50) U/L Alkaline Phosphatase 135 H 97 (38-126) U/L Total Protein 7.0 6.0 L (6.3-8.2) g/dL Albumin 3.8 3.3 L (3.5-5.1) g/dL All other labs normal. Imaging Additional studies: ITS Impressions Abdomen/Pelvis CT 05/02/24 07:13 IMPRESSION: 1. Acute cholecystitis.
--- NOTE | 2024-05-02 08:40 | P.PNAN_ITS ---
Anes - Initial Pre Proc Eval Procedure: Operation Date: 05/02/24 08:30 Proposed Procedures p Laparoscopic Cholecystectomy, Possible Open - Sung Bartholomew DO Date/Time: 05/02/24 08:40 Surgeon: Peggy Smith PA-C Pre Op Diagnosis: Acute Cholecystitis/Sepsis Patient Data Age: 69 Gender: M Height: 1.8 m Weight: 82.4 kg Last Vital Signs Temp 99.1 F 05/02/24 08:22 Pulse 96 05/02/24 08:22 Resp 14 05/02/24 06:00 BP 127/73 05/02/24 08:22 Pulse Ox 93 05/02/24 08:22 O2 Del Method Room Air 05/02/24 08:22 O2 Flow Rate 2 05/02/24 02:15 Allergies Allergy/AdvReac Type Severity Reaction Status Date / Time No Known Allergies Allergy Verified 12/26/23 11:22 Home Medications ?Medication ?Instructions ?Recorded ?Confirmed ?Type aspirin 81 mg tablet,delayed 81 mg PO DAILY 10/07/21 05/02/24 History release (Adult Low Dose Aspirin) multivitamin (Daily Multi-Vitamin 1 tablet PO DAILY 10/07/21 05/02/24 History tablet) Laboratory Tests 05/01/24 05/02/24 21:12 07:20 WBC 12.6 H K/mm3 14.1 H K/mm3 (4.5-10.0) (4.5-10.0) RBC 4.94 M/mm3 4.39 L M/mm3 (4.6-6.20) (4.6-6.20) Hgb 15.7 g/dL 13.9 L g/dL (14.0-18.0) (14.0-18.0) Hct 43.8 % 41.1 L % (42.0-52.0) (42.0-52.0) MCV 88.7 fl 93.6 D fl (80-100) (80-100) MCH 31.8 pg 31.7 pg (26-34) (26-34) MCHC 35.8 g/dl 33.8 g/dl (32-36) (32-36) RDW 12.7 % 13.1 % (11.5-14.5) (11.5-14.5) Plt Count 173 k/mm3 170 k/mm3 (150-375) (150-375) MPV 10.5 H fl 10.9 H fl (7.4-10.4) (7.4-10.4) Immature Gran % (Auto) Not Reportable 3.5 H % (0-0.5) Neut % (Auto) Not Reportable 85.6 H % (45.5-73.1) Lymph % (Auto) Not Reportable 3.6 L % (18.3-44.2) [place] % (Auto) Not Reportable 5.4 % (2.6-8.5) Eos % (Auto) Not Reportable 1.6 % (0-4.4) Baso % (Auto) Not Reportable 0.3 % (0.2-1.2) Lymph # (Auto) Not Reportable 0.51 L K/mm3 (0.9-3.2) [place] # (Auto) Not Reportable 0.8 H K/mm3 (0.1-0.6) Eos # (Auto) Not Reportable 0.2 K/mm3 (0-0.3) Baso # (Auto) Not Reportable 0.0 K/mm3 (0.0-0.1) Abs Immat Gran (auto) Not Reportable 0.49 H K/mm3 (0.00-0.031) Absolute Neuts (auto) Not Reportable 12.0 H K/mm3 (1.3-6.7) Absolute Nucleated RBC Not Reportable 0.000 K/mm3 (0.0-0.012) Total Counted 100 Neutrophils % (Manual) 89 H % (46-73) Band Neutrophils % 8 H % (0-6) Lymphocytes % (Manual) 2.0 L % (18-44) Monocytes % (Manual) 1 L % (3-9) Nucleated RBC % Not Reportable 0.0 % (0.0-0.2) Abs Neuts (Manual) 12.22 H K/mm3 (1.3-6.7) Abs Lymphs (Manual) 0.25 L K/mm3 (1.1-4.5) Abs Monocytes (Manual) 0.12 K/mm3 (0.1-0.90) Platelet Estimate Adequate Adequate (Adequate) (Adequate) Anisocytosis 1+ [place] Cells 1+ Schistocytes None seen None seen Sodium 136 L mmol/L 138 mmol/L (137-145) (137-145) Potassium 3.5 mmol/L 4.9 mmol/L (3.4-5.0) (3.4-5.0) Chloride 107 mmol/L 108 H mmol/L (98-107) (98-107) Carbon Dioxide 25 mmol/L 27 mmol/L (22-30) (22-30) Anion Gap 4 mmol/L 3 L mmol/L (4-12) (4-12) BUN 22 H mg/dL 26 H mg/dL (9-20) (9-20) Creatinine 1.10 mg/dL 1.50 H mg/dL (0.7-1.3) (0.7-1.3) Estim Creat Clear Calc 60 ml/min 45 ml/min Estimated GFR > 60 46 L (59 - ) (59 - ) Glucose 136 H mg/dL 134 H mg/dL (65-110) (65-110) Lactic Acid 1.9 mmol/L (0.7-2.0) Calcium 8.9 mg/dL 8.1 L mg/dL (8.4-10.2) (8.4-10.2) Magnesium 1.8 mg/dL (1.6-2.3) Total Bilirubin 3.3 H mg/dL 3.4 H mg/dL (0.2-1.3) (0.2-1.3) AST 22 U/L 19 U/L (17-59) (17-59) ALT 24 U/L 19 U/L (6-50) (6-50) Alkaline Phosphatase 135 H U/L 97 U/L (38-126) (38-126) Total Protein 7.0 g/dL 6.0 L g/dL (6.3-8.2) (6.3-8.2) Albumin 3.8 g/dL 3.3 L g/dL (3.5-5.1) (3.5-5.1) Lipase 31 U/L (23-300) Influenza A (RT-PCR) Negative (Negative) Influenza B (RT-PCR) Negative (Negative) RSV (RT-PCR) Negative (Negative) SARS-CoV-2 RNA (RT-PCR) Negative (Negative) Patient hx anesthesia problems: none Family hx anesthesia problems: none Results Review: All pre-operative results and documents have been reviewed as part of the pre- operative evaluation. PMFSH Surgical History Surgical History H/O colonoscopy Social History Social History Smoking status: Never smoker Second hand tobacco smoke exposure: No Alcohol intake: current Drinks per week: 2 Substance use: never Substance use type: does not use Do You Feel Safe in your Home?: Yes Lack of Transportation: No Lack of Food: Never True Current Housing: I Have Housing Concerned About Future Housing: No Difficulty Paying Gas/Electric Bills: No Difficulty Paying for Meds: No Currently Unemployed: No Education: Trade/Vocational Certificate Difficulty w/ Childcare or Family Care: No Living arrangements: with family Spiritual care concerns: No Anes - Eval Final PreProcedure Day of Procedure 05/02/24 08:40 Patient weight: normal Heart: regular rate and rhythm Lungs: clear to auscultation Airway: Mallampati scale and special considerations (Lower partial has been removed. Many missing teeth, none loose. ) Neurological: alert and oriented Last oral intake: >/= 8 hours ASA classification: II Emergent: no Anesthetic plan: proceed Anesthesia type and monitoring: general ETT and standard monitoring Results Review: All pre-operative results and documents have been reviewed as part of the pre- operative evaluation. Pt active overall, 1-2 fos, no cp or sob. Informed Consent: The patient's anesthetic plan and its attendant risks and benefits were discussed with the patient/family/POA. Questions were solicited and answers provided to the satisfaction of the patient/family/POA.
[2024-05-02] MEDS: LACTATED RINGERS 1,000 ML 30 ML IV CONT ×2 (08:46→10:50)
[2024-05-02] MEDS: BUPIVACAINE/EPINEPHRINE 0.5% 30 ML VIAL INFILTRATE (09:14)
--- NOTE | 2024-05-02 09:19 | S_PTH ---
PATIENT: Efrain Pak LOC: [id number] U#:[id number] AGE/SX: 69/M ROOM: 314 RE05/03/[address]: Peggy Smith PA-C : 1955 BED: 02 DIS: 05/07/2024 SPEC #: [id number] RECD: 05/02/24 11:02 STATUS: VALERIE AGUILAR #: [id number] DEENA: 05/02/24 09:[address]: Sung Bartholomew DEPT: [facility] Surgical RECD BY: Ariela Baker ENTERED: 05/02/24 11:02 SP TYPE: Surgical OTHR DR: MD Donte Lancaster, MD Peggy Smith PA-C Tissues: A - Gallbladder Procedures: Hematoxylin and Eosin Stain Gross and Microscopic Level 3
--- NOTE | 2024-05-02 09:53 | W.PM.PROC2 ---
Procedure Note - Detailed Date of Procedure 05/02/24 Pre-op Diagnosis Acute Cholecystitis/Sepsis Post-op Diagnosis Same (Acute perforated cholecystitis) Procedure Performed Laparoscopic cholecystectomy Surgeon Sung Bartholomew, DO Anesthesia General and Local (0.5% bupivacaine) Indications This is a 69-year-old man who presented to the emergency department last night with upper abdominal pain for the past several days. He was also experiencing fevers and nausea. In the emergency department he was noted to have an elevated white blood count and CT showed evidence of acute calculous cholecystitis. His liver enzymes were slightly elevated as well. The patient was admitted and started on antibiotics. Discussions were made with the patient about treatment options and decision was made to proceed with laparoscopic cholecystectomy, possible open. Findings Laparoscopic cholecystectomy was performed. Upon entering the abdomen laparoscopically it was evident that the gallbladder was perforated. There was bile staining over the entire right lobe of the liver and the omentum in the right upper quadrant. There was about 250 mL of bilious ascites in the abdominal cavity. The gallbladder appeared to be perforated at the fundus. There was also purulent drainage coming from the gallbladder. The neck of the gallbladder had some pericholecystic adhesions but these came down fairly easily due to the really acute nature of the disease process. The cystic duct appeared normal in size. There were numerous gallstones within the gallbladder. Gallbladder was removed and sent to the lab for pathology. I irrigated the right upper quadrant with 1 L of sterile saline and placed a 19 round Papa drain within the gallbladder fossa. Description of Procedure Procedure as well as risks, benefits, and alternatives were discussed with patient. Written consent was obtained and placed in chart prior to procedure. The patient was brought back to surgical suite. Patient was placed in supine position on operating table. Time-out was done to confirm patient and procedure. Patient was then intubated by the anesthesia department. Abdomen was prepped and draped in sterile fashion using chlorhexidine prep. 0.5% bupivacaine with epinephrine was infiltrated at each site of incision. A 5 millimeter incision was made near the umbilicus, and a 5 millimeter Optiview trocar was advanced through the abdominal layers under direct visualization. Once inside the abdominal cavity, carbon dioxide was insufflated to create a pneumoperitoneum. The camera was inserted and the abdomen was inspected. Perforated cholecystitis was identified with significant amount of bilious ascites and purulence drainage coming from the fundus of the gallbladder. The patient was placed in reverse Trendelenburg position and rotated slightly to the left. An 11 millimeter incision was made in the subxiphoid region, and an 11 millimeter trocar was inserted under direct visualization. Two 5 millimeter incisions were made in the right upper quadrant, and two 5 millimeter trocars were inserted under direct visualization. The gallbladder was identified and grasped at the fundus and retracted superiorly. It was then grasped at the infundibulum retracted laterally. Careful dissection around the neck of the gallbladder was performed using blunt dissection with a [place] grasper and hook electrocautery. The cystic duct was identified, and a window was created behind it. The cystic artery was also identified and a window was created behind it. The critical view of safety was identified, visualizing the cystic duct running directly into the neck of the gallbladder, and the cystic artery running directly into the wall of the gallbladder. A 5 millimeter clip miscellaneous machine operator was then used to place 2 clips proximally and 1 clip distally on both the cystic duct and cystic artery. They were then both transected using endoscopic scissors. Once safely away from the john hepatitis, the gallbladder was dissected free from the liver bed using hook electrocautery. Hemostasis was achieved along the way. The gallbladder was removed completely and then removed through the subxiphoid port. The liver bed was then inspected. Hemostasis appeared adequate, and our clips appeared secure. The area was gently irrigated with sterile saline. No other abnormalities were seen. A 19 round Papa drain was placed through the right lateral incision and directed into the gallbladder fossa. This was secured in place using a 3-0 nylon drain stitch. The patient was flattened out in bed, and 1 final inspection was made around the abdominal cavity. The subxiphoid port was removed, and a Andrae Amilcar cone was used to approximate the fascia with an 0-Vicryl simple interrupted suture. The remaining ports were then removed under direct visualization, the camera was removed, and the pneumoperitoneum was released. The skin of the incisions was approximated using 4-0 Monocryl subcuticular sutures. Exofin glue was applied on top. The patient was then awakened from anesthesia, extubated, and transferred to recovery. Estimated Blood Loss 50 Pathology Yes (Gallbladder) Complications No immediate complications Condition Stable Disposition Floor [facility] [place] Billing Surgery - Charge Forward: Surgery Billing
[2024-05-02] MEDS: PIPERACILLN/TAZ 3.375GM/NS50ML 3.375 GM/50 ML BAG IVPB ×3 (12:18→23:00)
[2024-05-02] MEDS: HYDROcodone/acetaminophen (*CRX) 5-325 MG TABLET 1 TAB PO ×2 (13:00→21:58)
[2024-05-02] MEDS: HYDROcodone/acetaminophen (*CRX) 7.5-325 MG TABLET 1 TAB PO (17:05)
[2024-05-02 18:32] LABS: Add Urine Microscopic? YES; Appearance Urine Cloudy (Clear); Bacteria Urine None Seen /hpf; Bilirubin Urine 2+ (Negative); Blood Urine 1+ (Negative); Color Urine Dark Yellow (Yellow); Glucose Urine UA Negative (Negative); Ketones Urine Negative (Negative); Leukocyte Esterase Ur Trace LEU/UL (Negative); Nitrate Urine Negative (Negative); Non Pathogenic Casts 0-2; Protein Urine 3+ mg/dL (Negative); Specific Grav Ur 1.041 (1.001-1.035); Squamous Epithelial Cell Urine Few /hpf (Few); WBC Urine 0-5 /hpf (0-3); pH Urine 5.5 (5.0-9.0)
[2024-05-03] VITALS (17 sets, daily range): BP systolic 108–141; BP diastolic 48–82; PULSE 88–106; RESP 14–18; TEMP 36.7–38.7; O2SAT 90–96
[2024-05-03] MEDS: HYDROcodone/acetaminophen (*CRX) 7.5-325 MG TABLET 1 TAB PO (03:18)
[2024-05-03] MEDS: PIPERACILLN/TAZ 3.375GM/NS50ML 3.375 GM/50 ML BAG IVPB ×4 (05:02→23:18)
[2024-05-03 07:51] LABS: Basophils Percent Auto 0.3 % (0.2-1.2); Eosinophils Absolute Auto 0.1 K/mm3 (0-0.3); Eosinophils Percent Auto 0.9 % (0-4.4); Hematocrit 33.6 % (42.0-52.0); Hemoglobin 11.4 g/dL (14.0-18.0); Immature Granulocyte Absolute 0.05 K/mm3 (0.00-0.031); Immature Granulocyte Percent A 0.5 % (0-0.5); Lymphocytes Absolute Auto 0.64 K/mm3 (0.9-3.2); Mean Corpuscular HGB Conc 33.9 g/dl (32-36); Mean Corpuscular Hemoglobin 31.6 pg (26-34); Mean Corpuscular Volume 93.1 fl (80-100); Mean Platelet Volume 10.3 fl (7.4-10.4); Monocytes Absolute Auto 0.5 K/mm3 (0.1-0.6); Monocytes Percent Auto 5.3 % (2.6-8.5); Neutrophils Absolute Auto 7.9 K/mm3 (1.3-6.7); Platelet Count Result 156 k/mm3 (150-375); Red Blood Count 3.61 M/mm3 (4.6-6.20); Red Cell Distribution Width 13.2 % (11.5-14.5); White Blood Count 9.2 K/mm3 (4.5-10.0)
[2024-05-03 08:09] LABS: Alanine Aminotransferase 28 U/L (6-50); Albumin Level 2.6 g/dL (3.5-5.1); Alkaline Phosphatase 90 U/L (38-126); Anion Gap 2 mmol/L (4-12); Aspartate Amino Transferase 30 U/L (17-59); Bilirubin,Total 2.2 mg/dL (0.2-1.3); Blood Urea Nitrogen 31 mg/dL (9-20); Calcium 7.8 mg/dL (8.4-10.2); Carbon Dioxide 26 mmol/L (22-30); Chloride 108 mmol/L (98-107); Estimated CRCL calculation 45 ml/min; Estimated Glomerular Filt Rate 46; Glucose 99 mg/dL (65-110); Potassium 3.5 mmol/L (3.4-5.0); Sodium 136 mmol/L (137-145)
--- NOTE | 2024-05-03 08:26 | PM.IMPN ---
Progress Note: A&P Assessment and Plan (1) Hyperbilirubinemia: Code(s): E80.6 - Other disorders of bilirubin metabolism Status: Acute (2) Transaminitis: Code(s): R74.01 - Elevation of levels of liver transaminase levels Status: Acute (3) Right upper quadrant pain: Code(s): R10.11 - Right upper quadrant pain Status: Acute (4) Sepsis: Qualifiers: Sepsis acute organ dysfunction status: unspecified Sepsis type: sepsis due to unspecified organism Qualified Code(s): A41.9 - Sepsis, unspecified organism Code(s): A41.9 - Sepsis, unspecified organism Status: Acute (5) Acute calculous cholecystitis: Code(s): K80.00 - Calculus of gallbladder with acute cholecystitis without obstruction Status: Acute (6) Hypercholesterolemia: Code(s): E78.00 - Pure hypercholesterolemia, unspecified Status: Acute (7) Subclinical hypothyroidism: Code(s): E03.8 - Other specified hypothyroidism Status: Acute (8) History of smoking: Code(s): Z87.891 - Personal history of nicotine dependence Status: Acute (9) Screening for colon cancer: Code(s): Z12.11 - Encounter for screening for malignant neoplasm of colon Status: Acute Plan (1) Sepsis: Qualifiers: Sepsis acute organ dysfunction status: unspecified Sepsis type: sepsis due to unspecified organism Qualified Code(s): A41.9 - Sepsis, unspecified organism Code(s): A41.9 - Sepsis, unspecified organism Status: Acute Assessment and Plan: Met SIRS criteria: febrile, leukocytosis, tachycardia upon arrival - lactic acid: 1.9 - s/p 2L sepsis bolus given in the ED - suspected source: cholecystitis - blood cultures drawn on 05/02: No growth - antibiotics: Rocephin and Flagyl started on 05/02 - UA: ordered - CT abdomen/pelvis: acute cholecystitis Patient is afebrile overnight, blood pressure stable, white blood cells 9200 Current patient afebrile, blood pressure stable, white blood cell within normal limit, sepsis has resolved (2) Acute calculous cholecystitis: Code(s): K80.00 - Calculus of gallbladder with acute cholecystitis without obstruction Status: Acute Assessment and Plan: - LFTs: tot bili 3.3, AST 22, ALT 24, alk phos 135. - Lipase WNL - CT abdomen/pelvis: acute cholecystitis - Monitor vital signs, I and O's, check stool output, neuro status and patient is a fall risk - Monitor serum electrolytes and CBC - Monitor lactic acid - IV pain management - Gentle IV fluid resuscitation - Diet: clears - Consult general surgery for further evaluation, appreciate assistance and recommendation s/p laparoscopic cholecystectomy with ADAN drain placement on 05/[address] Bartholomew Repeated CMP showed persistent elevated total bilirubin 2.2.3, alk-phos 90, aminotransferase within the room anemia 05/03 Subjective Date/time seen: 05/03/24 08:26 Interval history: s/p laparoscopic cholecystectomy D1 still has abdominal pain. [place] fluids drained out from in VAC patient denies chest pain, shortness a breath, and palpitations. Exam Narrative: GENERAL: Pleasant, in no acute distress. Well-nourished. - EYES: EOMI. Anicteric. - HENT: Moist mucous membranes. - LUNGS: Clear to auscultation bilaterally, no wheezing, rhonchi, or rales. - CARDIOVASCULAR: Regular rate and rhythm. No murmur. No JVD. - ABDOMEN: Soft,mild upper quadrant tender, surgical wound is well dressed, dressing is dry and and non-distended. No palpable masses. - EXTREMITIES: No edema. Peripheral pulses 2+. Non-tender. - NEUROLOGIC: No focal neurological deficits. CN II-XII grossly intact. - PSYCHIATRIC: Awake, Alert and oriented x 3. Appropriate mood and affect. - SKIN: No rashes or lesions. Warm. - LYMPH: No cervical lymphadenopathy. Objective Data Vital Signs Vital Signs: Vital Signs - 24 hr 05/02/24 10:06 05/02/24 10:20 05/02/24 10:35 Temperature 98.4 F Pulse Rate 102 H 90 89 Respiratory Rate 20 18 18 Blood Pressure 107/60 103/67 96/65 L Pulse Oximetry 99 98 98 Oxygen Delivery Simple Face Mask Simple Face Mask Simple Face Mask Oxygen Flow Rate 6 6 6 05/02/24 10:50 05/02/24 11:00 05/02/24 11:15 Temperature Pulse Rate 91 90 Respiratory Rate 18 18 Blood Pressure 94/66 L 106/69 Pulse Oximetry 97 92 Oxygen Delivery Simple Face Mask Room Air Room Air Oxygen Flow Rate 6 05/02/24 11:30 05/02/24 11:45 05/02/24 12:15 Temperature 97.2 F L Pulse Rate 93 90 94 Respiratory Rate 26 H 17 16 Blood Pressure 110/74 105/71 119/70 Pulse Oximetry 92 91 93 Oxygen Delivery Room Air Room Air Oxygen Flow Rate 05/02/24 12:15 05/02/24 13:00 05/02/24 14:00 Temperature 97.9 F 97.9 F 98.7 F Pulse Rate 94 94 98 Respiratory Rate 16 16 16 Blood Pressure 112/65 111/68 112/66 Pulse Oximetry 91 92 95 Oxygen Delivery Oxygen Flow Rate 05/02/24 16:00 05/02/24 17:45 05/02/24 20:00 Temperature 98.8 F Pulse Rate 93 90 Respiratory Rate 18 Blood Pressure 106/58 L Pulse Oximetry 100 Oxygen Delivery Room Air Oxygen Flow Rate 05/02/24 21:45 05/03/24 00:00 05/03/24 01:35 Temperature 97.5 F L 98.4 F Pulse Rate 95 101 H 102 H Respiratory Rate 16 14 Blood Pressure 113/64 108/48 L Pulse Oximetry 91 90 Oxygen Delivery Oxygen Flow Rate 05/03/24 04:00 05/03/24 05:27 05/03/24 07:53 Temperature 98.3 F Pulse Rate 100 99 99 Respiratory Rate 18 18 Blood Pressure 132/68 Pulse Oximetry 94 94 Oxygen Delivery Nasal Cannula Oxygen Flow Rate 2 Intake/Output Intake/Output: Intake & Output 04/30/24 05/01/24 05/02/24 05/03/24 23:59 23:59 23:59 23:59 Intake Total 3350 600 Output Total 60 370 Balance 3290 230 Meds/Results Medications: Active Medications Generic Name Dose Route Start Last Admin Trade Name Freq PRN Reason Stop Dose Admin Hydrocodone Bitart/Acetaminophen 1 tab 05/02/24 12:00 05/02/24 21:58 Hydrocodone/Acetaminophen (*Crx) 5-325 Mg Tablet PO 1 tab Q4H PRN Administration Pain Rated 4-6 Hydrocodone Bitart/Acetaminophen 1 tab 05/02/24 12:00 05/03/24 03:18 Hydrocodone/Acetaminophen (*Crx) 7.5-325 Mg Tablet PO 1 tab Q4H PRN Administration Pain Rated 7-10 Aspirin 81 mg 05/03/24 09:00 Aspirin 81 Mg Enteric Tablet PO DAILY GRAY Dextrose 12.5 gm 05/01/24 23:27 Dextrose 50% 25 Gm/50 Ml Syringe IV PUSH PRN PRN Hypoglycemia Protocol Enoxaparin Sodium 40 mg 05/03/24 09:00 Enoxaparin 40 Mg/0.4 Ml Syringe SUB-Q DAILY GRAY Glucagon 1 mg 05/01/24 23:27 Glucagon For Inj 1 Mg Vial IM PRN PRN Hypoglycemia Protocol Glucose 15 gm 05/01/24 23:27 Glucose Oral Gel 15 Gm Of Glucse In 37.5 Gm Tube PO PRN PRN Hypoglycemia Protocol Dextrose 1,000 mls @ 100 mls/hr 05/01/24 23:27 Dextrose 5% 1,000 Ml IVPB PRN PRN Hypoglycemia Protocol Ibuprofen 800 mg in 200 mls @ 400 mls/hr 05/02/24 12:00 Caldolor 800 Mg/200 Ml IVPB Q6H PRN Breakthrough Pain Rated 1-3 or NPO Piperacillin/Tazobactam/Dextrose 3.375 gm in 50 mls @ 100 mls/hr 05/02/24 12:00 05/03/24 05:32 Zosyn 3.375 Gm/Ns 50 Ml IVPB Infused Q6H GRAY Infusion Ibuprofen 600 mg 05/02/24 12:00 Ibuprofen 600 Mg Tablet PO Q6H PRN Pain Rated 1-3 Morphine Sulfate 2 mg 05/02/24 12:00 Morphine Sulfate (*Crx) 2 Mg/Ml Inj IV PUSH Q2H PRN Breakthrough Pain Rated 4-6 or NPO Morphine Sulfate 4 mg 05/02/24 12:00 05/02/24 15:45 Morphine Sulfate (*Crx) 4 Mg/Ml Inj IV PUSH 4 mg Q2H PRN Administration Breakthrough Pain Rated 7-10 or NPO Naloxone HCl 0.1 mg 05/02/24 12:00 Naloxone Hcl 0.4 Mg/Ml Vial IV PUSH Q2M PRN Opiate Reversal Ondansetron HCl 4 mg 05/01/24 23:27 Ondansetron Inj 4 Mg/2 Ml Vial IV PUSH Q4H PRN Nausea Radiology Results: ITS Impressions Abdomen/Pelvis CT 05/02/24 07:13 IMPRESSION: 1. Acute cholecystitis. Labs Labs: Laboratory Results - last 24 hr 05/02/24 05/03/24 18:19 07:33 WBC 9.2 RBC 3.61 L Hgb 11.4 L Hct 33.6 L MCV 93.1 MCH 31.6 MCHC 33.9 RDW 13.2 Plt Count 156 MPV 10.3 Immature Gran % (Auto) 0.5 Neut % (Auto) 86.0 H Lymph % (Auto) 7.0 L [place] % (Auto) 5.3 Eos % (Auto) 0.9 Baso % (Auto) 0.3 Lymph # (Auto) 0.64 L [place] # (Auto) 0.5 Eos # (Auto) 0.1 Baso # (Auto) 0.0 Abs Immat Gran (auto) 0.05 H Absolute Neuts (auto) 7.9 H Absolute Nucleated RBC 0.000 Nucleated RBC % 0.0 Sodium 136 L Potassium 3.5 Chloride 108 H Carbon Dioxide 26 Anion Gap 2 L BUN 31 H Creatinine 1.50 H Estim Creat Clear Calc 45 Estimated GFR 46 L Glucose 99 Calcium 7.8 L Total Bilirubin 2.2 H AST 30 ALT 28 Alkaline Phosphatase 90 Total Protein 6.0 L Albumin 2.6 L Urine Color Dark yellow Urine Appearance Cloudy H Urine pH 5.5 Ur Specific [place] 1.041 H Urine Protein 3+ H Urine Glucose (UA) Negative Urine Ketones Negative Ur Blood (Man) 1+ H Urine Nitrate Negative Urine Bilirubin 2+ H Urine Urobilinogen 4.0 H Leukocyte Esterase Rfl Trace H Urine RBC 3-5 H Urine WBC 0-5 Ur Squamous Epith Cells Few Urine Bacteria None seen Urine Casts 0-2
[2024-05-03] MEDS: ASPIRIN 81 MG ENTERIC TABLET PO (09:15)
[2024-05-03] MEDS: ENOXAPARIN 40 MG/0.4 ML SYRINGE SUB-Q (09:15)
[2024-05-03] MEDS: HYDROcodone/acetaminophen (*CRX) 5-325 MG TABLET 1 TAB PO ×2 (09:15→20:29)
--- NOTE | 2024-05-03 10:00 | P.PNAN_ITS ---
Anes - Prog Note Post-Op Date/Time: 05/03/24 10:00 Cardiovascular status: normal Respiratory status: normal Airway patency: baseline Mental status: baseline Post-Op hydration status: normal Vital Signs: Last Vital Signs Temp 37.2 C 05/03/24 09:44 Pulse 98 05/03/24 09:44 Resp 18 05/03/24 09:44 BP 127/72 05/03/24 09:44 Pulse Ox 94 05/03/24 09:44 O2 Del Method Room Air 05/03/24 09:31 O2 Flow Rate 2 05/03/24 07:53 Pain Score (VAS): 07/15 I/O: Intake & Output 05/02/24 05/03/24 05/03/24 23:59 07:59 15:59 Intake Total 340 600 Output Total 45 370 Balance 295 230 Laboratory Tests 05/03/24 07:33 05/03/24 07:33 05/02/24 05/03/24 18:19 07:33 WBC 9.2 RBC 3.61 L Hgb 11.4 L Hct 33.6 L MCV 93.1 MCH 31.6 MCHC 33.9 RDW 13.2 Plt Count 156 MPV 10.3 Immature Gran % (Auto) 0.5 Neut % (Auto) 86.0 H Lymph % (Auto) 7.0 L [place] % (Auto) 5.3 Eos % (Auto) 0.9 Baso % (Auto) 0.3 Lymph # (Auto) 0.64 L [place] # (Auto) 0.5 Eos # (Auto) 0.1 Baso # (Auto) 0.0 Abs Immat Gran (auto) 0.05 H Absolute Neuts (auto) 7.9 H Absolute Nucleated RBC 0.000 Nucleated RBC % 0.0 Sodium 136 L Potassium 3.5 Chloride 108 H Carbon Dioxide 26 Anion Gap 2 L BUN 31 H Creatinine 1.50 H Estim Creat Clear Calc 45 Estimated GFR 46 L Glucose 99 Calcium 7.8 L Total Bilirubin 2.2 H AST 30 ALT 28 Alkaline Phosphatase 90 Total Protein 6.0 L Albumin 2.6 L Urine Color Dark yellow Urine Appearance Cloudy H Urine pH 5.5 Ur Specific [place] 1.041 H Urine Protein 3+ H Urine Glucose (UA) Negative Urine Ketones Negative Ur Blood (Man) 1+ H Urine Nitrate Negative Urine Bilirubin 2+ H Urine Urobilinogen 4.0 H Leukocyte Esterase Rfl Trace H Urine RBC 3-5 H Urine WBC 0-5 Ur Squamous Epith Cells Few Urine Bacteria None seen Urine Casts 0-2 Post-procedural complaints: none Patient Feedback: Patient satisfied with anesthetic care.
--- NOTE | 2024-05-03 11:54 | P.PNGS_ITS ---
Progress Note: A&P Assessment and Plan (1) Acute calculous cholecystitis: Code(s): K80.00 - Calculus of gallbladder with acute cholecystitis without obstruction Status: Acute Assessment and Plan: * Doing well on POD#1 * Continue Zosyn * Monitor drain output * Possibly home tomorrow if continuing to improve (2) Sepsis: Qualifiers: Sepsis acute organ dysfunction status: unspecified Sepsis type: sepsis due to unspecified organism Qualified Code(s): A41.9 - Sepsis, unspecified organism Code(s): A41.9 - Sepsis, unspecified organism Status: Acute (3) Transaminitis: Code(s): R74.01 - Elevation of levels of liver transaminase levels Status: Acute (4) Hyperbilirubinemia: Code(s): E80.6 - Other disorders of bilirubin metabolism Status: Acute Subjective Subjective Date/Time Seen: 05/03/24 11:54 Interval history: Pain controlled. No fevers. Tolerating diet. Exam GI: Inspection: non-distended, incision (intact with glue) and other (DAAN serosanguinous) GI Palp: Yes Soft to palpation, Yes Tenderness to palpation present (GI) (incisional) and No Guarding due to palpation present (GI) Objective Data Vital Signs Vital Signs: Vital Signs - 24 hr 05/02/24 12:15 05/02/24 12:15 05/02/24 13:00 Temperature 97.2 F L 97.9 F 97.9 F Pulse Rate 94 94 94 Respiratory Rate 16 16 16 Blood Pressure 119/70 112/65 111/68 Pulse Oximetry 93 91 92 Oxygen Delivery Oxygen Flow Rate 05/02/24 14:00 05/02/24 16:00 05/02/24 17:45 Temperature 98.7 F 98.8 F Pulse Rate 98 93 90 Respiratory Rate 16 18 Blood Pressure 112/66 106/58 L Pulse Oximetry 95 100 Oxygen Delivery Oxygen Flow Rate 05/02/24 20:00 05/02/24 21:45 05/03/24 00:00 Temperature 97.5 F L Pulse Rate 95 101 H Respiratory Rate 16 Blood Pressure 113/64 Pulse Oximetry 91 Oxygen Delivery Room Air Oxygen Flow Rate 05/03/24 01:35 05/03/24 04:00 05/03/24 05:27 Temperature 98.4 F 98.3 F Pulse Rate 102 H 100 99 Respiratory Rate 14 18 Blood Pressure 108/48 L 132/68 Pulse Oximetry 90 94 Oxygen Delivery Oxygen Flow Rate 05/03/24 07:53 05/03/24 08:00 05/03/24 08:22 Temperature 98.7 F Pulse Rate 99 89 92 Respiratory Rate 18 18 Blood Pressure 131/76 Pulse Oximetry 94 93 Oxygen Delivery Nasal Cannula Oxygen Flow Rate 2 05/03/24 09:31 05/03/24 09:31 05/03/24 09:44 Temperature 98.1 F 98.9 F Pulse Rate 100 98 Respiratory Rate 18 Blood Pressure 127/72 Pulse Oximetry 93 94 Oxygen Delivery Room Air Oxygen Flow Rate Intake/Output Intake/Output: Intake & Output 04/30/24 05/01/24 05/02/24 05/03/24 23:59 23:59 23:59 23:59 Intake Total 3350 950 Output Total 60 370 Balance 3290 580 Meds/Results Medications: Active Medications Generic Name Dose Route Start Last Admin Trade Name Freq PRN Reason Stop Dose Admin Hydrocodone Bitart/Acetaminophen 1 tab 05/02/24 12:00 05/03/24 09:15 Hydrocodone/Acetaminophen (*Crx) 5-325 Mg Tablet PO 1 tab Q4H PRN Administration Pain Rated 4-6 Hydrocodone Bitart/Acetaminophen 1 tab 05/02/24 12:00 05/03/24 03:18 Hydrocodone/Acetaminophen (*Crx) 7.5-325 Mg Tablet PO 1 tab Q4H PRN Administration Pain Rated 7-10 Aspirin 81 mg 05/03/24 09:00 05/03/24 09:15 Aspirin 81 Mg Enteric Tablet PO 81 mg DAILY GRAY Administration Dextrose 12.5 gm 05/01/24 23:27 Dextrose 50% 25 Gm/50 Ml Syringe IV PUSH PRN PRN Hypoglycemia Protocol Enoxaparin Sodium 40 mg 05/03/24 09:00 05/03/24 09:15 Enoxaparin 40 Mg/0.4 Ml Syringe SUB-Q 40 mg DAILY GRAY Administration Glucagon 1 mg 05/01/24 23:27 Glucagon For Inj 1 Mg Vial IM PRN PRN Hypoglycemia Protocol Glucose 15 gm 05/01/24 23:27 Glucose Oral Gel 15 Gm Of Glucse In 37.5 Gm Tube PO PRN PRN Hypoglycemia Protocol Dextrose 1,000 mls @ 100 mls/hr 05/01/24 23:27 Dextrose 5% 1,000 Ml IVPB PRN PRN Hypoglycemia Protocol Ibuprofen 800 mg in 200 mls @ 400 mls/hr 05/02/24 12:00 Caldolor 800 Mg/200 Ml IVPB Q6H PRN Breakthrough Pain Rated 1-3 or NPO Piperacillin/Tazobactam/Dextrose 3.375 gm in 50 mls @ 100 mls/hr 05/02/24 12:00 05/03/24 05:32 Zosyn 3.375 Gm/Ns 50 Ml IVPB Infused Q6H GRAY Infusion Ibuprofen 600 mg 05/02/24 12:00 Ibuprofen 600 Mg Tablet PO Q6H PRN Pain Rated 1-3 Morphine Sulfate 2 mg 05/02/24 12:00 Morphine Sulfate (*Crx) 2 Mg/Ml Inj IV PUSH Q2H PRN Breakthrough Pain Rated 4-6 or NPO Morphine Sulfate 4 mg 05/02/24 12:00 05/02/24 15:45 Morphine Sulfate (*Crx) 4 Mg/Ml Inj IV PUSH 4 mg Q2H PRN Administration Breakthrough Pain Rated 7-10 or NPO Naloxone HCl 0.1 mg 05/02/24 12:00 Naloxone Hcl 0.4 Mg/Ml Vial IV PUSH Q2M PRN Opiate Reversal Ondansetron HCl 4 mg 05/01/24 23:27 Ondansetron Inj 4 Mg/2 Ml Vial IV PUSH Q4H PRN Nausea Radiology Results: ITS Impressions Abdomen/Pelvis CT 05/02/24 07:13 IMPRESSION: 1. Acute cholecystitis. Labs Labs: Laboratory Results - last 24 hr 05/02/24 05/03/24 18:19 07:33 WBC 9.2 RBC 3.61 L Hgb 11.4 L Hct 33.6 L MCV 93.1 MCH 31.6 MCHC 33.9 RDW 13.2 Plt Count 156 MPV 10.3 Immature Gran % (Auto) 0.5 Neut % (Auto) 86.0 H Lymph % (Auto) 7.0 L [place] % (Auto) 5.3 Eos % (Auto) 0.9 Baso % (Auto) 0.3 Lymph # (Auto) 0.64 L [place] # (Auto) 0.5 Eos # (Auto) 0.1 Baso # (Auto) 0.0 Abs Immat Gran (auto) 0.05 H Absolute Neuts (auto) 7.9 H Absolute Nucleated RBC 0.000 Nucleated RBC % 0.0 Sodium 136 L Potassium 3.5 Chloride 108 H Carbon Dioxide 26 Anion Gap 2 L BUN 31 H Creatinine 1.50 H Estim Creat Clear Calc 45 Estimated GFR 46 L Glucose 99 Calcium 7.8 L Total Bilirubin 2.2 H AST 30 ALT 28 Alkaline Phosphatase 90 Total Protein 6.0 L Albumin 2.6 L Urine Color Dark yellow Urine Appearance Cloudy H Urine pH 5.5 Ur Specific [place] 1.041 H Urine Protein 3+ H Urine Glucose (UA) Negative Urine Ketones Negative Ur Blood (Man) 1+ H Urine Nitrate Negative Urine Bilirubin 2+ H Urine Urobilinogen 4.0 H Leukocyte Esterase Rfl Trace H Urine RBC 3-5 H Urine WBC 0-5 Ur Squamous Epith Cells Few Urine Bacteria None seen Urine Casts 0-2
[2024-05-03] MEDS: IBUPROFEN 600 MG TABLET PO (23:18)
[2024-05-04] VITALS (12 sets, daily range): BP systolic 114–141; BP diastolic 63–82; PULSE 79–98; RESP 16–18; TEMP 36.4–37.9; O2SAT 94–97
[2024-05-04] MEDS: PIPERACILLN/TAZ 3.375GM/NS50ML 3.375 GM/50 ML BAG IVPB ×3 (05:06→17:29)
[2024-05-04 06:49] LABS: Basophils Percent Auto 0.4 % (0.2-1.2); Eosinophils Absolute Auto 0.2 K/mm3 (0-0.3); Eosinophils Percent Auto 2.5 % (0-4.4); Hematocrit 33.6 % (42.0-52.0); Hemoglobin 11.4 g/dL (14.0-18.0); Immature Granulocyte Absolute 0.04 K/mm3 (0.00-0.031); Immature Granulocyte Percent A 0.5 % (0-0.5); Lymphocytes Absolute Auto 0.79 K/mm3 (0.9-3.2); Lymphocytes Percent Auto 10.3 % (18.3-44.2); Mean Corpuscular HGB Conc 33.9 g/dl (32-36); Mean Corpuscular Hemoglobin 31.5 pg (26-34); Mean Corpuscular Volume 92.8 fl (80-100); Mean Platelet Volume 10.4 fl (7.4-10.4); Monocytes Absolute Auto 0.5 K/mm3 (0.1-0.6); Monocytes Percent Auto 6.5 % (2.6-8.5); Neutrophils Absolute Auto 6.1 K/mm3 (1.3-6.7); Neutrophils Percent Auto 79.8 % (45.5-73.1); Platelet Count Result 154 k/mm3 (150-375); Red Blood Count 3.62 M/mm3 (4.6-6.20); Red Cell Distribution Width 13.2 % (11.5-14.5); White Blood Count 7.7 K/mm3 (4.5-10.0)
[2024-05-04 07:02] LABS: Alanine Aminotransferase 25 U/L (6-50); Albumin Level 2.7 g/dL (3.5-5.1); Alkaline Phosphatase 163 U/L (38-126); Anion Gap 3 mmol/L (4-12); Aspartate Amino Transferase 34 U/L (17-59); Bilirubin,Total 3.3 mg/dL (0.2-1.3); Blood Urea Nitrogen 28 mg/dL (9-20); Calcium 8.2 mg/dL (8.4-10.2); Carbon Dioxide 28 mmol/L (22-30); Chloride 106 mmol/L (98-107); Estimated CRCL calculation 51 ml/min; Estimated Glomerular Filt Rate 55; Glucose 96 mg/dL (65-110); Potassium 3.5 mmol/L (3.4-5.0); Sodium 137 mmol/L (137-145)
[2024-05-04] MEDS: ASPIRIN 81 MG ENTERIC TABLET PO (08:17)
[2024-05-04] MEDS: ENOXAPARIN 40 MG/0.4 ML SYRINGE SUB-Q (08:18)
--- NOTE | 2024-05-04 09:21 | PM.IMPN ---
Progress Note: A&P Assessment and Plan (1) Hyperbilirubinemia: Code(s): E80.6 - Other disorders of bilirubin metabolism Status: Acute (2) Transaminitis: Code(s): R74.01 - Elevation of levels of liver transaminase levels Status: Acute (3) Right upper quadrant pain: Code(s): R10.11 - Right upper quadrant pain Status: Acute (4) Sepsis: Qualifiers: Sepsis acute organ dysfunction status: unspecified Sepsis type: sepsis due to unspecified organism Qualified Code(s): A41.9 - Sepsis, unspecified organism Code(s): A41.9 - Sepsis, unspecified organism Status: Acute (5) Acute calculous cholecystitis: Code(s): K80.00 - Calculus of gallbladder with acute cholecystitis without obstruction Status: Acute (6) Hypercholesterolemia: Code(s): E78.00 - Pure hypercholesterolemia, unspecified Status: Acute (7) Subclinical hypothyroidism: Code(s): E03.8 - Other specified hypothyroidism Status: Acute (8) History of smoking: Code(s): Z87.891 - Personal history of nicotine dependence Status: Acute (9) Screening for colon cancer: Code(s): Z12.11 - Encounter for screening for malignant neoplasm of colon Status: Acute Plan (1) Sepsis: Qualifiers: Sepsis acute organ dysfunction status: unspecified Sepsis type: sepsis due to unspecified organism Qualified Code(s): A41.9 - Sepsis, unspecified organism Code(s): A41.9 - Sepsis, unspecified organism Status: Acute Assessment and Plan: Met SIRS criteria: febrile, leukocytosis, tachycardia upon arrival - lactic acid: 1.9 - s/p 2L sepsis bolus given in the ED - suspected source: cholecystitis - blood cultures drawn on 05/02: No growth - antibiotics: Rocephin and Flagyl started on 05/02 - UA: ordered - CT abdomen/pelvis: acute cholecystitis Patient is afebrile overnight, blood pressure stable, white blood cells 9200 Current patient afebrile, blood pressure stable, white blood cell within normal limit, low-grade fever 100.2 sepsis has resolved (2) Acute calculous cholecystitis: Code(s): K80.00 - Calculus of gallbladder with acute cholecystitis without obstruction Status: Acute Assessment and Plan: - LFTs: tot bili 3.3, AST 22, ALT 24, alk phos 135. - Lipase WNL - CT abdomen/pelvis: acute cholecystitis - Monitor vital signs, I and O's, check stool output, neuro status and patient is a fall risk - Monitor serum electrolytes and CBC - Monitor lactic acid - IV pain management - Gentle IV fluid resuscitation - Diet: clears - Consult general surgery for further evaluation, appreciate assistance and recommendation s/p laparoscopic cholecystectomy with ADAN drain placement on 05/[address] Bartholomew Repeated CMP showed persistent elevated total bilirubin 2.2.3, alk-phos 90, aminotransferase within the room anemia 05/03 Elevated total bilirubin and alk-phos that are trending up slightly 05/04 Subjective Date/time seen: 05/04/24 09:21 Interval history: Patient is afebrile, blood pressure stable, pulse ox 95 on room air, labs reviewed, hemoglobin 11.4 stable Elevated total bilirubin 3.3 and alkaline phosphate 163 that are trending up multiple also within normal limit, low-grade fever 100.2 Exam Narrative: GENERAL: Pleasant, in no acute distress. Well-nourished. - EYES: EOMI. Anicteric. - HENT: Moist mucous membranes. - LUNGS: Clear to auscultation bilaterally, no wheezing, rhonchi, or rales. - CARDIOVASCULAR: Regular rate and rhythm. No murmur. No JVD. - ABDOMEN: Soft,mild upper quadrant tender, surgical wound is well dressed, dressing is dry and and non-distended. No palpable masses. - EXTREMITIES: No edema. Peripheral pulses 2+. Non-tender. - NEUROLOGIC: No focal neurological deficits. CN II-XII grossly intact. - PSYCHIATRIC: Awake, Alert and oriented x 3. Appropriate mood and affect. - SKIN: No rashes or lesions. Warm. - LYMPH: No cervical lymphadenopathy. Objective Data Vital Signs Vital Signs: Vital Signs - 24 hr 05/03/24 09:31 05/03/24 09:31 05/03/24 09:44 Temperature 98.1 F 98.9 F Pulse Rate 100 98 Respiratory Rate 18 Blood Pressure 127/72 Pulse Oximetry 93 94 Oxygen Delivery Room Air Oxygen Flow Rate Fraction of Inspired Oxygen 05/03/24 12:00 05/03/24 13:45 05/03/24 16:00 Temperature 98.3 F Pulse Rate 95 95 98 Respiratory Rate 16 Blood Pressure 135/71 Pulse Oximetry 95 Oxygen Delivery Oxygen Flow Rate Fraction of Inspired Oxygen 05/03/24 18:38 05/03/24 20:00 05/03/24 20:00 Temperature 100.5 F H Pulse Rate 106 H Respiratory Rate Blood Pressure Pulse Oximetry 93 Oxygen Delivery Nasal Cannula Oxygen Flow Rate 2 Fraction of Inspired Oxygen 05/03/24 21:24 05/03/24 22:10 05/03/24 23:30 Temperature 101.6 F H 99.6 F 99 F Pulse Rate 97 88 Respiratory Rate 16 Blood Pressure 141/82 H Pulse Oximetry 96 95 Oxygen Delivery Oxygen Flow Rate Fraction of Inspired Oxygen 05/04/24 00:00 05/04/24 04:00 05/04/24 05:28 Temperature 97.5 F L Pulse Rate 87 79 81 Respiratory Rate 16 Blood Pressure 114/63 Pulse Oximetry 95 Oxygen Delivery Oxygen Flow Rate Fraction of Inspired Oxygen 05/04/24 08:57 Temperature Pulse Rate Respiratory Rate Blood Pressure Pulse Oximetry 94 Oxygen Delivery Room Air Oxygen Flow Rate Fraction of Inspired Oxygen 21 Intake/Output Intake/Output: Intake & Output 05/01/24 05/02/24 05/03/24 05/04/24 23:59 23:59 23:59 23:59 Intake Total 3350 1560 600 Output Total 60 407 5 Balance 3290 1153 595 Meds/Results Medications: Active Medications Generic Name Dose Route Start Last Admin Trade Name Freq PRN Reason Stop Dose Admin Acetaminophen 650 mg 05/03/24 20:22 Acetaminophen 325 Mg Tablet PO Q6H PRN Mild Pain (1-3) or Fever Hydrocodone Bitart/Acetaminophen 1 tab 05/02/24 12:00 05/03/24 20:29 Hydrocodone/Acetaminophen (*Crx) 5-325 Mg Tablet PO 1 tab Q4H PRN Administration Pain Rated 4-6 Hydrocodone Bitart/Acetaminophen 1 tab 05/02/24 12:00 05/03/24 03:18 Hydrocodone/Acetaminophen (*Crx) 7.5-325 Mg Tablet PO 1 tab Q4H PRN Administration Pain Rated 7-10 Aspirin 81 mg 05/03/24 09:00 05/04/24 08:17 Aspirin 81 Mg Enteric Tablet PO 81 mg DAILY GRAY Administration Dextrose 12.5 gm 05/01/24 23:27 Dextrose 50% 25 Gm/50 Ml Syringe IV PUSH PRN PRN Hypoglycemia Protocol Enoxaparin Sodium 40 mg 05/03/24 09:00 05/04/24 08:18 Enoxaparin 40 Mg/0.4 Ml Syringe SUB-Q 40 mg DAILY GRAY Administration Glucagon 1 mg 05/01/24 23:27 Glucagon For Inj 1 Mg Vial IM PRN PRN Hypoglycemia Protocol Glucose 15 gm 05/01/24 23:27 Glucose Oral Gel 15 Gm Of Glucse In 37.5 Gm Tube PO PRN PRN Hypoglycemia Protocol Dextrose 1,000 mls @ 100 mls/hr 05/01/24 23:27 Dextrose 5% 1,000 Ml IVPB PRN PRN Hypoglycemia Protocol Ibuprofen 800 mg in 200 mls @ 400 mls/hr 05/02/24 12:00 Caldolor 800 Mg/200 Ml IVPB Q6H PRN Breakthrough Pain Rated 1-3 or NPO Piperacillin/Tazobactam/Dextrose 3.375 gm in 50 mls @ 100 mls/hr 05/02/24 12:00 05/04/24 05:36 Zosyn 3.375 Gm/Ns 50 Ml IVPB Infused Q6H GRAY Infusion Ibuprofen 600 mg 05/02/24 12:00 05/03/24 23:18 Ibuprofen 600 Mg Tablet PO 600 mg Q6H PRN Administration Pain Rated 1-3 Morphine Sulfate 2 mg 05/02/24 12:00 Morphine Sulfate (*Crx) 2 Mg/Ml Inj IV PUSH Q2H PRN Breakthrough Pain Rated 4-6 or NPO Morphine Sulfate 4 mg 05/02/24 12:00 05/02/24 15:45 Morphine Sulfate (*Crx) 4 Mg/Ml Inj IV PUSH 4 mg Q2H PRN Administration Breakthrough Pain Rated 7-10 or NPO Naloxone HCl 0.1 mg 05/02/24 12:00 Naloxone Hcl 0.4 Mg/Ml Vial IV PUSH Q2M PRN Opiate Reversal Ondansetron HCl 4 mg 05/01/24 23:27 Ondansetron Inj 4 Mg/2 Ml Vial IV PUSH Q4H PRN Nausea Radiology Results: ITS Impressions Abdomen/Pelvis CT 05/02/24 07:13 IMPRESSION: 1. Acute cholecystitis. Labs Labs: Laboratory Results - last 24 hr 05/04/24 06:23 WBC 7.7 RBC 3.62 L Hgb 11.4 L Hct 33.6 L MCV 92.8 MCH 31.5 MCHC 33.9 RDW 13.2 Plt Count 154 MPV 10.4 Immature Gran % (Auto) 0.5 Neut % (Auto) 79.8 H Lymph % (Auto) 10.3 L [place] % (Auto) 6.5 Eos % (Auto) 2.5 Baso % (Auto) 0.4 Lymph # (Auto) 0.79 L [place] # (Auto) 0.5 Eos # (Auto) 0.2 Baso # (Auto) 0.0 Abs Immat Gran (auto) 0.04 H Absolute Neuts (auto) 6.1 Absolute Nucleated RBC 0.000 Nucleated RBC % 0.0 Sodium 137 Potassium 3.5 Chloride 106 Carbon Dioxide 28 Anion Gap 3 L BUN 28 H Creatinine 1.30 Estim Creat Clear Calc 51 Estimated GFR 55 L Glucose 96 Calcium 8.2 L Total Bilirubin 3.3 H AST 34 ALT 25 Alkaline Phosphatase 163 H Total Protein 6.0 L Albumin 2.7 L
[2024-05-04] MEDS: HYDROcodone/acetaminophen (*CRX) 5-325 MG TABLET 1 TAB PO (13:43)
--- NOTE | 2024-05-04 15:25 | PM.PNGS ---
Progress Note: A&P Assessment and Plan (1) Fever: Qualifiers: Fever type: post-procedural Qualified Code(s): R50.82 - Postprocedural fever Code(s): R50.9 - Fever, unspecified Status: Acute Assessment and Plan: Looks very much like postoperative atelectasis. I explained this to the patient and encouraged him to use his incentive spirometer regularly and to be up walking much more often. Otherwise seems to be healing well. If fever improved, could probably go home tomorrow. Continue IV Zosyn for now. (2) Acute calculous cholecystitis: Code(s): K80.00 - Calculus of gallbladder with acute cholecystitis without obstruction Status: Acute Assessment and Plan: Patient not only had acute cholecystitis but also a perforated gallbladder. Fever is likely due to atelectasis but will continue IV Zosyn and in patient care at least until tomorrow. Recheck labs and exam again in a.m.. Subjective Subjective Date/Time Seen: 05/04/24 15:25 Patient reports: pain is less, tolerating a regular diet and fever Review of Systems Review of Systems: All systems reviewed & are unremarkable except as noted in HPI and below (HPI) Exam Narrative: Patient febrile to 38.7? centigrade about 9:30 last night. Temperature 37.9 1:00 p.m. today. Had fever preoperatively but none since surgery. Patient admits that he has not been using his spirometer and has really not been out of bed. Const: General: cooperative, comfortable, no acute distress, awake, tired appearing and well nourished Orientation/consciousness: patient oriented x3 GI: Inspection: non-distended, incision (Dry and healing well), scaphoid and other (ADAN serous with blood tinge, output decreased) GI Palp: Yes Soft to palpation and Yes Tenderness to palpation present (GI) (Minimal appropriate tenderness for postoperative condition) Neuro: General: patient oriented x3 and no focal motor deficits Extrem: General: no calf tenderness and no edema Psych: Affect: normal affect Insight: Good insight present (Psych) Judgement: Good judgement present (Psych) Objective Data Vital Signs Vital Signs: Vital Signs - 24 hr 05/03/24 16:00 05/03/24 18:38 05/03/24 20:00 Temperature 38.1 C H Pulse Rate 98 Respiratory Rate Blood Pressure Pulse Oximetry 93 Oxygen Delivery Nasal Cannula Oxygen Flow Rate 2 Fraction of Inspired Oxygen 05/03/24 20:00 05/03/24 21:24 05/03/24 22:10 Temperature 38.7 C H 37.6 C Pulse Rate 106 H 97 88 Respiratory Rate 16 Blood Pressure 141/82 H Pulse Oximetry 96 95 Oxygen Delivery Oxygen Flow Rate Fraction of Inspired Oxygen 05/03/24 23:30 05/04/24 00:00 05/04/24 04:00 Temperature 37.2 C Pulse Rate 87 79 Respiratory Rate Blood Pressure Pulse Oximetry Oxygen Delivery Oxygen Flow Rate Fraction of Inspired Oxygen 05/04/24 05:28 05/04/24 08:00 05/04/24 08:00 Temperature 36.4 C L Pulse Rate 81 83 Respiratory Rate 16 Blood Pressure 114/63 Pulse Oximetry 95 94 Oxygen Delivery Room Air Oxygen Flow Rate Fraction of Inspired Oxygen 05/04/24 08:57 05/04/24 13:10 Temperature 37.9 C H Pulse Rate Respiratory Rate Blood Pressure Pulse Oximetry 94 Oxygen Delivery Room Air Oxygen Flow Rate Fraction of Inspired Oxygen 21 Intake/Output Intake/Output: Intake & Output 05/01/24 05/02/24 05/03/24 05/04/24 23:59 23:59 23:59 23:59 Intake Total 3350 1560 890 Output Total 60 407 5 Balance 3290 1153 885 Meds/Results Medications: Active Medications Generic Name Dose Route Start Last Admin Trade Name Freq PRN Reason Stop Dose Admin Acetaminophen 650 mg 05/03/24 20:22 Acetaminophen 325 Mg Tablet PO Q6H PRN Mild Pain (1-3) or Fever Hydrocodone Bitart/Acetaminophen 1 tab 05/02/24 12:00 05/04/24 13:43 Hydrocodone/Acetaminophen (*Crx) 5-325 Mg Tablet PO 1 tab Q4H PRN Administration Pain Rated 4-6 Hydrocodone Bitart/Acetaminophen 1 tab 05/02/24 12:00 05/03/24 03:18 Hydrocodone/Acetaminophen (*Crx) 7.5-325 Mg Tablet PO 1 tab Q4H PRN Administration Pain Rated 7-10 Aspirin 81 mg 05/03/24 09:00 05/04/24 08:17 Aspirin 81 Mg Enteric Tablet PO 81 mg DAILY GRAY Administration Dextrose 12.5 gm 05/01/24 23:27 Dextrose 50% 25 Gm/50 Ml Syringe IV PUSH PRN PRN Hypoglycemia Protocol Enoxaparin Sodium 40 mg 05/03/24 09:00 05/04/24 08:18 Enoxaparin 40 Mg/0.4 Ml Syringe SUB-Q 40 mg DAILY GRAY Administration Glucagon 1 mg 05/01/24 23:27 Glucagon For Inj 1 Mg Vial IM PRN PRN Hypoglycemia Protocol Glucose 15 gm 05/01/24 23:27 Glucose Oral Gel 15 Gm Of Glucse In 37.5 Gm Tube PO PRN PRN Hypoglycemia Protocol Dextrose 1,000 mls @ 100 mls/hr 05/01/24 23:27 Dextrose 5% 1,000 Ml IVPB PRN PRN Hypoglycemia Protocol Ibuprofen 800 mg in 200 mls @ 400 mls/hr 05/02/24 12:00 Caldolor 800 Mg/200 Ml IVPB Q6H PRN Breakthrough Pain Rated 1-3 or NPO Piperacillin/Tazobactam/Dextrose 3.375 gm in 50 mls @ 100 mls/hr 05/02/24 12:00 05/04/24 13:28 Zosyn 3.375 Gm/Ns 50 Ml IVPB Infused Q6H GRAY Infusion Ibuprofen 600 mg 05/02/24 12:00 05/03/24 23:18 Ibuprofen 600 Mg Tablet PO 600 mg Q6H PRN Administration Pain Rated 1-3 Morphine Sulfate 2 mg 05/02/24 12:00 Morphine Sulfate (*Crx) 2 Mg/Ml Inj IV PUSH Q2H PRN Breakthrough Pain Rated 4-6 or NPO Morphine Sulfate 4 mg 05/02/24 12:00 05/02/24 15:45 Morphine Sulfate (*Crx) 4 Mg/Ml Inj IV PUSH 4 mg Q2H PRN Administration Breakthrough Pain Rated 7-10 or NPO Naloxone HCl 0.1 mg 05/02/24 12:00 Naloxone Hcl 0.4 Mg/Ml Vial IV PUSH Q2M PRN Opiate Reversal Ondansetron HCl 4 mg 05/01/24 23:27 Ondansetron Inj 4 Mg/2 Ml Vial IV PUSH Q4H PRN Nausea Radiology Results: ITS Impressions Abdomen/Pelvis CT 05/02/24 07:13 IMPRESSION: 1. Acute cholecystitis. Labs Labs: Laboratory Results - last 24 hr 05/04/24 06:23 WBC 7.7 RBC 3.62 L Hgb 11.4 L Hct 33.6 L MCV 92.8 MCH 31.5 MCHC 33.9 RDW 13.2 Plt Count 154 MPV 10.4 Immature Gran % (Auto) 0.5 Neut % (Auto) 79.8 H Lymph % (Auto) 10.3 L [place] % (Auto) 6.5 Eos % (Auto) 2.5 Baso % (Auto) 0.4 Lymph # (Auto) 0.79 L [place] # (Auto) 0.5 Eos # (Auto) 0.2 Baso # (Auto) 0.0 Abs Immat Gran (auto) 0.04 H Absolute Neuts (auto) 6.1 Absolute Nucleated RBC 0.000 Nucleated RBC % 0.0 Sodium 137 Potassium 3.5 Chloride 106 Carbon Dioxide 28 Anion Gap 3 L BUN 28 H Creatinine 1.30 Estim Creat Clear Calc 51 Estimated GFR 55 L Glucose 96 Calcium 8.2 L Total Bilirubin 3.3 H AST 34 ALT 25 Alkaline Phosphatase 163 H Total Protein 6.0 L Albumin 2.7 L white blood cell count normal. Total bilirubin still slightly elevated but consistent with previous levels. Liver function tests normal.
[2024-05-04] MEDS: ACETAMINOPHEN 325 MG TABLET 650 MG PO (17:36)
[2024-05-04] MEDS: IBUPROFEN 600 MG TABLET PO (21:07)
[2024-05-04] MEDS: SENNA/DOCUSATE SODIUM TABLET 1 TAB PO (21:07)
[2024-05-04] MEDS: SIMETHICONE 80 MG TAB.CHEW PO (21:07)
[2024-05-05] VITALS (11 sets, daily range): BP systolic 145–156; BP diastolic 78–87; PULSE 70–89; RESP 16–18; TEMP 36.5–37.6; O2SAT 97–100
[2024-05-05] MEDS: PIPERACILLN/TAZ 3.375GM/NS50ML 3.375 GM/50 ML BAG IVPB ×5 (00:34→23:48)
--- NOTE | 2024-05-05 00:42 | PC.NURSE ---
patient states still no BM after senna was administered, but reports that he feels less bloated and is passing gas
[2024-05-05 06:48] LABS: Basophils Percent Auto 0.5 % (0.2-1.2); Eosinophils Absolute Auto 0.2 K/mm3 (0-0.3); Eosinophils Percent Auto 3.1 % (0-4.4); Hemoglobin 11.4 g/dL (14.0-18.0); Immature Granulocyte Absolute 0.04 K/mm3 (0.00-0.031); Immature Granulocyte Percent A 0.6 % (0-0.5); Lymphocytes Absolute Auto 0.85 K/mm3 (0.9-3.2); Lymphocytes Percent Auto 13.7 % (18.3-44.2); Mean Corpuscular HGB Conc 34.5 g/dl (32-36); Mean Corpuscular Hemoglobin 31.9 pg (26-34); Mean Corpuscular Volume 92.4 fl (80-100); Mean Platelet Volume 10.6 fl (7.4-10.4); Monocytes Absolute Auto 0.5 K/mm3 (0.1-0.6); Monocytes Percent Auto 8.7 % (2.6-8.5); Neutrophils Absolute Auto 4.6 K/mm3 (1.3-6.7); Neutrophils Percent Auto 73.4 % (45.5-73.1); Platelet Count Result 215 k/mm3 (150-375); Red Blood Count 3.57 M/mm3 (4.6-6.20); Red Cell Distribution Width 12.9 % (11.5-14.5); White Blood Count 6.2 K/mm3 (4.5-10.0)
[2024-05-05 06:59] LABS: Alanine Aminotransferase 28 U/L (6-50); Albumin Level 2.8 g/dL (3.5-5.1); Alkaline Phosphatase 307 U/L (38-126); Anion Gap 5 mmol/L (4-12); Aspartate Amino Transferase 40 U/L (17-59); Bilirubin,Total 4.1 mg/dL (0.2-1.3); Blood Urea Nitrogen 26 mg/dL (9-20); Calcium 8.2 mg/dL (8.4-10.2); Carbon Dioxide 27 mmol/L (22-30); Chloride 107 mmol/L (98-107); Estimated CRCL calculation 60 ml/min; Estimated Glomerular Filt Rate > 60; Glucose 87 mg/dL (65-110); Potassium 3.5 mmol/L (3.4-5.0); Sodium 139 mmol/L (137-145)
[2024-05-05] MEDS: ENOXAPARIN 40 MG/0.4 ML SYRINGE SUB-Q (08:59)
[2024-05-05] MEDS: ASPIRIN 81 MG ENTERIC TABLET PO (08:59)
[2024-05-05] MEDS: SIMETHICONE 80 MG TAB.CHEW PO ×4 (08:59→21:02)
--- NOTE | 2024-05-05 11:58 | P.PNIM_ITS ---
Progress Note: A&P Assessment and Plan (1) Hyperbilirubinemia: Code(s): E80.6 - Other disorders of bilirubin metabolism Status: Acute (2) Transaminitis: Code(s): R74.01 - Elevation of levels of liver transaminase levels Status: Acute (3) Right upper quadrant pain: Code(s): R10.11 - Right upper quadrant pain Status: Acute (4) Sepsis: Qualifiers: Sepsis acute organ dysfunction status: unspecified Sepsis type: sepsis due to unspecified organism Qualified Code(s): A41.9 - Sepsis, unspecified organism Code(s): A41.9 - Sepsis, unspecified organism Status: Acute (5) Acute calculous cholecystitis: Code(s): K80.00 - Calculus of gallbladder with acute cholecystitis without obstruction Status: Acute (6) Hypercholesterolemia: Code(s): E78.00 - Pure hypercholesterolemia, unspecified Status: Acute (7) Subclinical hypothyroidism: Code(s): E03.8 - Other specified hypothyroidism Status: Acute (8) History of smoking: Code(s): Z87.891 - Personal history of nicotine dependence Status: Acute (9) Screening for colon cancer: Code(s): Z12.11 - Encounter for screening for malignant neoplasm of colon Status: Acute Plan (1) Sepsis: Qualifiers: Sepsis acute organ dysfunction status: unspecified Sepsis type: sepsis due to unspecified organism Qualified Code(s): A41.9 - Sepsis, unspecified organism Code(s): A41.9 - Sepsis, unspecified organism Status: Acute Assessment and Plan: Met SIRS criteria: febrile, leukocytosis, tachycardia upon arrival - lactic acid: 1.9 - s/p 2L sepsis bolus given in the ED - suspected source: cholecystitis - blood cultures drawn on 05/02: No growth - antibiotics: Rocephin and Flagyl started on 05/02 - UA: ordered - CT abdomen/pelvis: acute cholecystitis Patient is afebrile overnight, blood pressure stable, white blood cells 9200 Current patient afebrile, blood pressure stable, white blood cell within normal limit, low-grade fever 100.2 sepsis has resolved - pt currently on iv zosyn continue iv today likely dc hanna am - watch wcc (2) Acute calculous cholecystitis: Code(s): K80.00 - Calculus of gallbladder with acute cholecystitis without obstruction Status: Acute Assessment and Plan: - LFTs: tot bili 3.3, AST 22, ALT 24, alk phos 135. - Lipase WNL - CT abdomen/pelvis: acute cholecystitis - Monitor vital signs, I and O's, check stool output, neuro status and patient is a fall risk - Monitor serum electrolytes and CBC - Monitor lactic acid - IV pain management - Gentle IV fluid resuscitation - Diet: clears - Consult general surgery for further evaluation, appreciate assistance and recommendation s/p laparoscopic cholecystectomy with ADAN drain placement on 05/[address] Bartholomew drain out now low fat diet started post op day 3 Pt adviced to walk in the room Zofran, protonix and senna/ colace ordered order labs ? dc home hanna Subjective Date/time seen: 05/05/24 11:58 Interval history: Patient is afebrile,sp lap jonathan for acute cholecystitis but also a perforated gallbladder. Pt is very apprehensive stomach upset after few bites of cereal pt passing gas not had bowel movement yet will add few stool softers today and monitor pt overnite ? [facility] Review of Systems Review of Systems: Pt feels gassy stomach upset no BM Exam Narrative: GENERAL: pt is anxious - LUNGS: Clear to auscultation bilateral ly, no wheezing, rhonchi, or rales. - CARDIOVASCULAR: Regular rate and rhyth m. No murmur. No JVD. - ABDOMEN: Soft,mild upper quadrant tend er, surgical wound is well dressed, dressing is dry and and non-distended. No palpable masses. - EXTREMITIES: No edema. Peripheral puls es 2+. Non-tender. - NEUROLOGIC: No focal neurological defi cits. CN II-XII grossly intact. - PSYCHIATRIC: Awake, Alert and oriented x 3. Appropriate mood and affect. - SKIN: No rashes or lesions. Warm. - LYMPH: No cervical lymphadenopathy. Objective Data Vital Signs Vital Signs: Vital Signs - 24 hr 05/04/24 12:00 05/04/24 13:10 05/04/24 16:00 Temperature 37.9 C H Pulse Rate 98 86 Respiratory Rate Blood Pressure Pulse Oximetry Oxygen Delivery 05/04/24 17:36 05/04/24 18:19 05/04/24 20:00 Temperature 37.3 C 36.4 C L Pulse Rate Respiratory Rate Blood Pressure Pulse Oximetry Oxygen Delivery Room Air 05/04/24 20:00 05/04/24 22:00 05/05/24 00:00 Temperature 36.6 C Pulse Rate 95 86 74 Respiratory Rate 18 Blood Pressure 141/82 H Pulse Oximetry 97 Oxygen Delivery 05/05/24 01:44 05/05/24 01:45 05/05/24 04:00 Temperature 36.5 C 36.8 C Pulse Rate 70 Respiratory Rate Blood Pressure Pulse Oximetry Oxygen Delivery 05/05/24 06:00 05/05/24 08:00 05/05/24 08:00 Temperature 36.6 C Pulse Rate 81 85 Respiratory Rate 16 Blood Pressure 145/78 H Pulse Oximetry 98 98 Oxygen Delivery Room Air Intake/Output Intake/Output: Intake & Output 05/02/24 05/03/24 05/04/24 05/05/24 23:59 23:59 23:59 23:59 Intake Total 3350 1560 2690 886 Output Total 60 407 20 10 Balance 3290 1153 2670 876 Meds/Results Medications: Active Medications Generic Name Dose Route Start Last Admin Trade Name Freq PRN Reason Stop Dose Admin Acetaminophen 650 mg 05/03/24 20:22 05/04/24 17:36 Acetaminophen 325 Mg Tablet PO 650 mg Q6H PRN Administration Mild Pain (1-3) or Fever Hydrocodone Bitart/Acetaminophen 1 tab 05/02/24 12:00 05/04/24 13:43 Hydrocodone/Acetaminophen (*Crx) 5-325 Mg Tablet PO 1 tab Q4H PRN Administration Pain Rated 4-6 Hydrocodone Bitart/Acetaminophen 1 tab 05/02/24 12:00 05/03/24 03:18 Hydrocodone/Acetaminophen (*Crx) 7.5-325 Mg Tablet PO 1 tab Q4H PRN Administration Pain Rated 7-10 Aspirin 81 mg 05/03/24 09:00 05/05/24 08:59 Aspirin 81 Mg Enteric Tablet PO 81 mg DAILY GRAY Administration Dextrose 12.5 gm 05/01/24 23:27 Dextrose 50% 25 Gm/50 Ml Syringe IV PUSH PRN PRN Hypoglycemia Protocol Enoxaparin Sodium 40 mg 05/03/24 09:00 05/05/24 08:59 Enoxaparin 40 Mg/0.4 Ml Syringe SUB-Q 40 mg DAILY GRAY Administration Glucagon 1 mg 05/01/24 23:27 Glucagon For Inj 1 Mg Vial IM PRN PRN Hypoglycemia Protocol Glucose 15 gm 05/01/24 23:27 Glucose Oral Gel 15 Gm Of Glucse In 37.5 Gm Tube PO PRN PRN Hypoglycemia Protocol Dextrose 1,000 mls @ 100 mls/hr 05/01/24 23:27 Dextrose 5% 1,000 Ml IVPB PRN PRN Hypoglycemia Protocol Ibuprofen 800 mg in 200 mls @ 400 mls/hr 05/02/24 12:00 Caldolor 800 Mg/200 Ml IVPB Q6H PRN Breakthrough Pain Rated 1-3 or NPO Piperacillin/Tazobactam/Dextrose 3.375 gm in 50 mls @ 100 mls/hr 05/02/24 12:00 05/05/24 06:06 Zosyn 3.375 Gm/Ns 50 Ml IVPB Infused Q6H GRAY Infusion Ibuprofen 600 mg 05/02/24 12:00 05/04/24 21:07 Ibuprofen 600 Mg Tablet PO 600 mg Q6H PRN Administration Pain Rated 1-3 Morphine Sulfate 2 mg 05/02/24 12:00 Morphine Sulfate (*Crx) 2 Mg/Ml Inj IV PUSH Q2H PRN Breakthrough Pain Rated 4-6 or NPO Morphine Sulfate 4 mg 05/02/24 12:00 05/02/24 15:45 Morphine Sulfate (*Crx) 4 Mg/Ml Inj IV PUSH 4 mg Q2H PRN Administration Breakthrough Pain Rated 7-10 or NPO Naloxone HCl 0.1 mg 05/02/24 12:00 Naloxone Hcl 0.4 Mg/Ml Vial IV PUSH Q2M PRN Opiate Reversal Ondansetron HCl 4 mg 05/01/24 23:27 Ondansetron Inj 4 Mg/2 Ml Vial IV PUSH Q4H PRN Nausea Polyethylene Glycol 17 gm 05/04/24 18:06 Polyethylene Glycol 3350 17 Gm Powd.Pack PO QAM PRN Constipation Senna/Docusate Sodium 1 tab 05/04/24 21:00 05/04/24 21:07 Senna/Docusate Sodium Tablet PO 1 tab HS GRAY Administration Simethicone 80 mg 05/04/24 21:00 05/05/24 08:59 Simethicone 80 Mg Tab.Chew PO 80 mg QID GRAY Administration Radiology Results: ITS Impressions Abdomen/Pelvis CT 05/02/24 07:13 IMPRESSION: 1. Acute cholecystitis. Labs Labs: Laboratory Results - last 24 hr 05/05/24 06:04 WBC 6.2 RBC 3.57 L Hgb 11.4 L Hct 33.0 L MCV 92.4 MCH 31.9 MCHC 34.5 RDW 12.9 Plt Count 215 MPV 10.6 H Immature Gran % (Auto) 0.6 H Neut % (Auto) 73.4 H Lymph % (Auto) 13.7 L [place] % (Auto) 8.7 H Eos % (Auto) 3.1 Baso % (Auto) 0.5 Lymph # (Auto) 0.85 L [place] # (Auto) 0.5 Eos # (Auto) 0.2 Baso # (Auto) 0.0 Abs Immat Gran (auto) 0.04 H Absolute Neuts (auto) 4.6 Absolute Nucleated RBC 0.000 Nucleated RBC % 0.0 Sodium 139 Potassium 3.5 Chloride 107 Carbon Dioxide 27 Anion Gap 5 BUN 26 H Creatinine 1.10 Estim Creat Clear Calc 60 Estimated GFR > 60 Glucose 87 Calcium 8.2 L Total Bilirubin 4.1 H AST 40 ALT 28 Alkaline Phosphatase 307 H Total Protein 6.0 L Albumin 2.8 L
[2024-05-05] MEDS: HYDROcodone/acetaminophen (*CRX) 5-325 MG TABLET 1 TAB PO ×2 (13:04→23:48)
--- NOTE | 2024-05-05 14:10 | PM.PNGS ---
Progress Note: A&P Assessment and Plan (1) Hyperbilirubinemia: Code(s): E80.6 - Other disorders of bilirubin metabolism Status: Acute Assessment and Plan: Fever is down and white blood cell count is normal but bilirubin has continued to climb over the last 48 hours. Patient had gallstones and perforated acute cholecystitis. Will get CT scan today and recheck labs again tomorrow. May need hepatobiliary scan. Overall does look better. Stay in hospital on antibiotics for now. (2) Hx laparoscopic cholecystectomy: Code(s): Z90.49 - Acquired absence of other specified parts of digestive tract Status: Acute Assessment and Plan: No bile or purulent fluid from ADAN drain. Will recheck CT scan for increasing bilirubin and alkaline phosphatase. (3) Acute calculous cholecystitis: Code(s): K80.00 - Calculus of gallbladder with acute cholecystitis without obstruction Status: Acute Assessment and Plan: Also had perforated gallbladder with stones. Continue antibiotics and inpatient care. Subjective Subjective Date/Time Seen: 05/05/24 14:10 Post Op day: 3 Patient reports: feels better, tolerating a regular diet, no bowel movement and afebrile (Temperature has stayed down) Exam Const: General: comfortable, alert and awake Nutritional Appearance: well nourished GI: Inspection: incision (Healing well, ADAN output serous) and scaphoid GI Palp: Yes Soft to palpation and Yes Tenderness to palpation present (GI) (Minimal, appropriate tenderness) Auscultation: normal bowel sounds Objective Data Vital Signs Vital Signs: Vital Signs - 24 hr 05/04/24 16:00 05/04/24 17:36 05/04/24 18:19 Temperature 37.3 C 36.4 C L Pulse Rate 86 Respiratory Rate Blood Pressure Pulse Oximetry Oxygen Delivery 05/04/24 20:00 05/04/24 20:00 05/04/24 22:00 Temperature 36.6 C Pulse Rate 95 86 Respiratory Rate 18 Blood Pressure 141/82 H Pulse Oximetry 97 Oxygen Delivery Room Air 05/05/24 00:00 05/05/24 01:44 05/05/24 01:45 Temperature 36.5 C 36.8 C Pulse Rate 74 Respiratory Rate Blood Pressure Pulse Oximetry Oxygen Delivery 05/05/24 04:00 05/05/24 06:00 05/05/24 08:00 Temperature 36.6 C Pulse Rate 70 81 Respiratory Rate 16 Blood Pressure 145/78 H Pulse Oximetry 98 98 Oxygen Delivery Room Air 05/05/24 08:00 Temperature Pulse Rate 85 Respiratory Rate Blood Pressure Pulse Oximetry Oxygen Delivery Intake/Output Intake/Output: Intake & Output 05/02/24 05/03/24 05/04/24 05/05/24 23:59 23:59 23:59 23:59 Intake Total 3350 1560 2690 936 Output Total 60 407 20 10 Balance 3290 1153 2670 926 Meds/Results Medications: Active Medications Generic Name Dose Route Start Last Admin Trade Name Freq PRN Reason Stop Dose Admin Acetaminophen 650 mg 05/03/24 20:22 05/04/24 17:36 Acetaminophen 325 Mg Tablet PO 650 mg Q6H PRN Administration Mild Pain (1-3) or Fever Hydrocodone Bitart/Acetaminophen 1 tab 05/02/24 12:00 05/05/24 13:04 Hydrocodone/Acetaminophen (*Crx) 5-325 Mg Tablet PO 1 tab Q4H PRN Administration Pain Rated 4-6 Hydrocodone Bitart/Acetaminophen 1 tab 05/02/24 12:00 05/03/24 03:18 Hydrocodone/Acetaminophen (*Crx) 7.5-325 Mg Tablet PO 1 tab Q4H PRN Administration Pain Rated 7-10 Aspirin 81 mg 05/03/24 09:00 05/05/24 08:59 Aspirin 81 Mg Enteric Tablet PO 81 mg DAILY GRAY Administration Calcium Carbonate 200 mg 05/05/24 12:18 Calcium Carbonate (Tums) 500 Mg (200 Mg Elemental) PO Q6H PRN Indigestion Dextrose 12.5 gm 05/01/24 23:27 Dextrose 50% 25 Gm/50 Ml Syringe IV PUSH PRN PRN Hypoglycemia Protocol Enoxaparin Sodium 40 mg 05/03/24 09:00 05/05/24 08:59 Enoxaparin 40 Mg/0.4 Ml Syringe SUB-Q 40 mg DAILY RGAY Administration Glucagon 1 mg 05/01/24 23:27 Glucagon For Inj 1 Mg Vial IM PRN PRN Hypoglycemia Protocol Glucose 15 gm 05/01/24 23:27 Glucose Oral Gel 15 Gm Of Glucse In 37.5 Gm Tube PO PRN PRN Hypoglycemia Protocol Dextrose 1,000 mls @ 100 mls/hr 05/01/24 23:27 Dextrose 5% 1,000 Ml IVPB PRN PRN Hypoglycemia Protocol Ibuprofen 800 mg in 200 mls @ 400 mls/hr 05/02/24 12:00 Caldolor 800 Mg/200 Ml IVPB Q6H PRN Breakthrough Pain Rated 1-3 or NPO Piperacillin/Tazobactam/Dextrose 3.375 gm in 50 mls @ 100 mls/hr 05/02/24 12:00 05/05/24 13:23 Zosyn 3.375 Gm/Ns 50 Ml IVPB Infused Q6H GRAY Infusion Ibuprofen 600 mg 05/02/24 12:00 05/04/24 21:07 Ibuprofen 600 Mg Tablet PO 600 mg Q6H PRN Administration Pain Rated 1-3 Morphine Sulfate 2 mg 05/02/24 12:00 Morphine Sulfate (*Crx) 2 Mg/Ml Inj IV PUSH Q2H PRN Breakthrough Pain Rated 4-6 or NPO Morphine Sulfate 4 mg 05/02/24 12:00 05/02/24 15:45 Morphine Sulfate (*Crx) 4 Mg/Ml Inj IV PUSH 4 mg Q2H PRN Administration Breakthrough Pain Rated 7-10 or NPO Naloxone HCl 0.1 mg 05/02/24 12:00 Naloxone Hcl 0.4 Mg/Ml Vial IV PUSH Q2M PRN Opiate Reversal Ondansetron HCl 4 mg 05/01/24 23:27 Ondansetron Inj 4 Mg/2 Ml Vial IV PUSH Q4H PRN Nausea Ondansetron HCl 4 mg 05/05/24 12:18 Ondansetron Hcl Odt 4 Mg Tablet PO Q6H PRN Nausea And Vomiting Pantoprazole Sodium 20 mg 05/06/24 09:00 Pantoprazole Sod Sesquihydrate 20 Mg Tab PO QAM GRAY Polyethylene Glycol 17 gm 05/04/24 18:06 Polyethylene Glycol 3350 17 Gm Powd.Pack PO QAM PRN Constipation Senna/Docusate Sodium 1 tab 05/04/24 21:00 05/04/24 21:07 Senna/Docusate Sodium Tablet PO 1 tab HS GRAY Administration Senna/Docusate Sodium 1 tab 05/05/24 21:00 Senna/Docusate Sodium Tablet PO HS GRAY Simethicone 80 mg 05/04/24 21:00 05/05/24 12:53 Simethicone 80 Mg Tab.Chew PO 80 mg QID GRAY Administration Radiology Results: ITS Impressions Abdomen/Pelvis CT 05/02/24 07:13 IMPRESSION: 1. Acute cholecystitis. Labs Labs: Laboratory Results - last 24 hr 05/05/24 06:04 WBC 6.2 RBC 3.57 L Hgb 11.4 L Hct 33.0 L MCV 92.4 MCH 31.9 MCHC 34.5 RDW 12.9 Plt Count 215 MPV 10.6 H Immature Gran % (Auto) 0.6 H Neut % (Auto) 73.4 H Lymph % (Auto) 13.7 L [place] % (Auto) 8.7 H Eos % (Auto) 3.1 Baso % (Auto) 0.5 Lymph # (Auto) 0.85 L [place] # (Auto) 0.5 Eos # (Auto) 0.2 Baso # (Auto) 0.0 Abs Immat Gran (auto) 0.04 H Absolute Neuts (auto) 4.6 Absolute Nucleated RBC 0.000 Nucleated RBC % 0.0 Sodium 139 Potassium 3.5 Chloride 107 Carbon Dioxide 27 Anion Gap 5 BUN 26 H Creatinine 1.10 Estim Creat Clear Calc 60 Estimated GFR > 60 Glucose 87 Calcium 8.2 L Total Bilirubin 4.1 H AST 40 ALT 28 Alkaline Phosphatase 307 H Total Protein 6.0 L Albumin 2.8 L afebrile, white blood cell count normal but bilirubin up to 4.1 and alkaline phosphatase up to 307
--- NOTE | 2024-05-05 15:10 | P.DS_ITS ---
DS: Admitting Diagnosis Discharge Date 05/05/2024 Admitting Diagnosis Abdominal pain DS: Discharge Diagnosis Discharge Diagnosis (1) Hyperbilirubinemia: Code(s): E80.6 - Other disorders of bilirubin metabolism Status: Acute (2) Transaminitis: Code(s): R74.01 - Elevation of levels of liver transaminase levels Status: Acute (3) Right upper quadrant pain: Code(s): R10.11 - Right upper quadrant pain Status: Acute (4) Sepsis: Qualifiers: Sepsis acute organ dysfunction status: unspecified Sepsis type: sepsis due to unspecified organism Qualified Code(s): A41.9 - Sepsis, unspecified organism Code(s): A41.9 - Sepsis, unspecified organism Status: Acute (5) Acute calculous cholecystitis: Code(s): K80.00 - Calculus of gallbladder with acute cholecystitis without obstruction Status: Acute (6) Hypercholesterolemia: Code(s): E78.00 - Pure hypercholesterolemia, unspecified Status: Acute (7) Subclinical hypothyroidism: Code(s): E03.8 - Other specified hypothyroidism Status: Acute (8) History of smoking: Code(s): Z87.891 - Personal history of nicotine dependence Status: Acute (9) Screening for colon cancer: Code(s): Z12.11 - Encounter for screening for malignant neoplasm of colon Status: Acute Plan (1) Sepsis: Qualifiers: Sepsis acute organ dysfunction status: unspecified Sepsis type: sepsis due to unspecified organism Qualified Code(s): A41.9 - Sepsis, unspecified organism Code(s): A41.9 - Sepsis, unspecified organism Status: Acute Assessment and Plan: Met SIRS criteria: febrile, leukocytosis, tachycardia upon arrival - lactic acid: 1.9 - s/p 2L sepsis bolus given in the ED - suspected source: cholecystitis - blood cultures drawn on 05/02: No growth - antibiotics: Rocephin and Flagyl started on 05/02 - UA: ordered - CT abdomen/pelvis: acute cholecystitis Patient is afebrile overnight, blood pressure stable, white blood cells 9200 Current patient afebrile, blood pressure stable, white blood cell within normal limit, low-grade fever 100.2 sepsis has resolved - pt currently on iv zosyn continue iv today likely dc hanna am - watch wcc (2) Acute calculous cholecystitis: Code(s): K80.00 - Calculus of gallbladder with acute cholecystitis without obstruction Status: Acute Assessment and Plan: - LFTs: tot bili 3.3, AST 22, ALT 24, alk phos 135. - Lipase WNL - CT abdomen/pelvis: acute cholecystitis - Monitor vital signs, I and O's, check stool output, neuro status and patient is a fall risk - Monitor serum electrolytes and CBC - Monitor lactic acid - IV pain management - Gentle IV fluid resuscitation - Diet: clears - Consult general surgery for further evaluation, appreciate assistance and recommendation s/p laparoscopic cholecystectomy with ADAN drain placement on 05/[address] Bartholomew drain out now low fat diet started post op day 3 Pt adviced to walk in the room Zofran, protonix and senna/ colace ordered order labs ? dc home hanna DS: Summary Hospital Course Hospital Course: Patient is afebrile,sp lap jonathan for acute cholecystitis but also a perforated gallbladder. Pt is very apprehensive stomach upset after few bites of cereal pt passing gas not had bowel movement yet will add few stool softers today and monitor pt overnite ? dc hanna home Pt seen by surgery md ok to dc today. Time Spent with Patient Time attestation: Total time spent providing and/or coordinating discharge services:50 minutes on day of dc Exam Narrative: GENERAL: pt is anxious - LUNGS: Clear to auscultation bilateral ly, no wheezing, rhonchi, or rales. - CARDIOVASCULAR: Regular rate and rhyth m. No murmur. No JVD. - ABDOMEN: Soft,mild upper quadrant tend er, surgical wound is well dressed, dressing is dry and and non-distended. No palpable masses. - EXTREMITIES: No edema. Peripheral puls es 2+. Non-tender. - NEUROLOGIC: No focal neurological defi cits. CN II-XII grossly intact. - PSYCHIATRIC: Awake, Alert and oriented x 3. Appropriate mood and affect. - SKIN: No rashes or lesions. Warm. - LYMPH: No cervical lymphadenopathy. DS: Data Data Completed and Pending Completed studies during hospitalization: Pending at discharge 05/02/24 09:19 Surgical [PTH] Routine Labs on day of discharge: Labs from last 24 hours 05/05/24 06:04 WBC 6.2 RBC 3.57 L Hgb 11.4 L Hct 33.0 L MCV 92.4 MCH 31.9 MCHC 34.5 RDW 12.9 Plt Count 215 MPV 10.6 H Immature Gran % (Auto) 0.6 H Neut % (Auto) 73.4 H Lymph % (Auto) 13.7 L [place] % (Auto) 8.7 H Eos % (Auto) 3.1 Baso % (Auto) 0.5 Lymph # (Auto) 0.85 L [place] # (Auto) 0.5 Eos # (Auto) 0.2 Baso # (Auto) 0.0 Abs Immat Gran (auto) 0.04 H Absolute Neuts (auto) 4.6 Absolute Nucleated RBC 0.000 Nucleated RBC % 0.0 Sodium 139 Potassium 3.5 Chloride 107 Carbon Dioxide 27 Anion Gap 5 BUN 26 H Creatinine 1.10 Estim Creat Clear Calc 60 Estimated GFR > 60 Glucose 87 Calcium 8.2 L Total Bilirubin 4.1 H AST 40 ALT 28 Alkaline Phosphatase 307 H Total Protein 6.0 L Albumin 2.8 L Preliminary micro results at discharge 05/02/24 00:31 Blood Culture - Preliminary Blood 05/02/24 00:31 Blood Culture - Preliminary Blood Discharge Plan Discharge Attending physician on discharge: Luna Liu Consulting providers: Sung Bartholomew Discharging Clinician: Luna Liu Anticipated Discharge Date/Time: 05/05/24 15:07 Patient Disposition: Home, Self-Care Activity: as tolerated Diet: low fat Patient Instructions: Antibiotic Form Patient Language: Palestinian Stand Alone Forms: General Discharge Information Follow-up/Referrals: Donte Loaiza MD [Primary Care Provider] - Sung Bartholomew DO [Physician] - (in 1-2 weeks time ) Discharge Medications: New ibuprofen 600 mg Tablet 600 mg PO Q8-10H PRN (Reason: Pain Rated 1-3) Qty: 30 0RF polyethylene glycol 3350 [Miralax] 17 gram Powder In Packet 17 g PO QAM PRN (Reason: Constipation) Qty: 30 0RF simethicone 80 mg Tablet,Chewable 80 mg PO QID Qty: 30 0RF pantoprazole [Protonix] 20 mg Tablet,Delayed Release (Dr/Ec) 20 mg PO QAM Qty: 30 0RF amoxicillin-pot clavulanate [Augmentin] 500-125 mg tablet 1 tablet PO Q12H Qty: 14 0RF Continued aspirin [Adult Low Dose Aspirin] 81 mg tablet,delayed release (DR/EC) 81 mg PO DAILY multivitamin [Daily Multi-Vitamin] Tablet 1 tablet PO DAILY Date of admission: 05/03/24 09:14 Primary Care Provider: Donte Loaiza Admitting Provider: Marilin Johnson V. Attending physician on admission: Peggy Smith Condition: Stable
[2024-05-05] MEDS: ACETAMINOPHEN 325 MG TABLET 650 MG PO (21:10)
[2024-05-06] VITALS (9 sets, daily range): BP systolic 142–161; BP diastolic 78–93; PULSE 70–87; RESP 16–22; TEMP 36.7–37.5; O2SAT 96–99
[2024-05-06] MEDS: PIPERACILLN/TAZ 3.375GM/NS50ML 3.375 GM/50 ML BAG IVPB ×4 (05:53→23:14)
[2024-05-06 06:46] LABS: Basophils Percent Auto 0.6 % (0.2-1.2); Eosinophils Absolute Auto 0.2 K/mm3 (0-0.3); Eosinophils Percent Auto 2.9 % (0-4.4); Hemoglobin 11.2 g/dL (14.0-18.0); Immature Granulocyte Absolute 0.06 K/mm3 (0.00-0.031); Immature Granulocyte Percent A 0.9 % (0-0.5); Lymphocytes Absolute Auto 0.93 K/mm3 (0.9-3.2); Lymphocytes Percent Auto 14.1 % (18.3-44.2); Mean Corpuscular HGB Conc 33.9 g/dl (32-36); Mean Corpuscular Volume 91.4 fl (80-100); Mean Platelet Volume 9.9 fl (7.4-10.4); Monocytes Absolute Auto 0.5 K/mm3 (0.1-0.6); Monocytes Percent Auto 7.3 % (2.6-8.5); Neutrophils Absolute Auto 4.9 K/mm3 (1.3-6.7); Neutrophils Percent Auto 74.2 % (45.5-73.1); Platelet Count Result 273 k/mm3 (150-375); Red Blood Count 3.61 M/mm3 (4.6-6.20); Red Cell Distribution Width 13.2 % (11.5-14.5); White Blood Count 6.6 K/mm3 (4.5-10.0)
[2024-05-06 07:03] LABS: Alanine Aminotransferase 40 U/L (6-50); Albumin Level 2.7 g/dL (3.5-5.1); Alkaline Phosphatase 315 U/L (38-126); Anion Gap 2 mmol/L (4-12); Aspartate Amino Transferase 58 U/L (17-59); Bilirubin,Total 3.1 mg/dL (0.2-1.3); Blood Urea Nitrogen 21 mg/dL (9-20); Carbon Dioxide 28 mmol/L (22-30); Chloride 108 mmol/L (98-107); Estimated CRCL calculation 66 ml/min; Estimated Glomerular Filt Rate > 60; Glucose 93 mg/dL (65-110); Potassium 3.1 mmol/L (3.4-5.0); Sodium 138 mmol/L (137-145)
--- NOTE | 2024-05-06 08:53 | P.PNIM_ITS ---
Progress Note: A&P Assessment and Plan (1) Sepsis: Qualifiers: Sepsis acute organ dysfunction status: unspecified Sepsis type: sepsis due to unspecified organism Qualified Code(s): A41.9 - Sepsis, unspecified o rganism Code(s): A41.9 - Sepsis, unspecified organism Status: Acute Assessment and Plan: Meets SIRS criteria: febrile, leukocytosis, tachycardia - lactic acid: 1.9 - s/p 2L sepsis bolus given in the ED - suspected source: cholecystitis - blood cultures drawn on 05/02: pending - antibiotics: Rocephin and Flagyl started on 05/02 - UA: ordered - CT abdomen/pelvis: acute cholecystitis Patient remains afebrile without leukocytosis. Vitals stable. (2) Acute calculous cholecystitis: Code(s): K80.00 - Calculus of gallbladder with acute cholecystitis without obstruction Status: Acute Assessment and Plan: - LFTs: tot bili 3.1, AST and ALT WNL, alk phos 315 - Lipase WNL - CT abdomen/pelvis: acute cholecystitis - Repeat CT 05/06: 1.5 x 2.9 x 6 point centimeters fluid collection the gallbladder fossa, suspicious for abscess, or possibly biloma. Additional pelvic ascites versus possible early developing abscess, with possible fluid collection measuring 6.6 x 3.3 cm. - Monitor vital signs, I and O's, check stool output, neuro status and patient is a fall risk - Monitor serum electrolytes and CBC - Monitor lactic acid - IV pain management - Gentle IV fluid resuscitation - Diet: clears - Consult general surgery for further evaluation, appreciate assistance and recommendation s/p laparoscopic cholecystectomy with ADAN drain placement on 05/[address] Bartholomew Will order a HIDA scan to evaluate for a bile leak. If positive, then he would require transfer to a tertiary care facility where GI services would be available for ERCP. If negative, then we could review the CT scan with the Radiologist to determine if percutaneous drainage would be indicated. (3) Hyperbilirubinemia: Code(s): E80.6 - Other disorders of bilirubin metabolism Status: Acute Assessment and Plan: bilirubin has continued to climb over the last 48 hours, peaking at 4.1 on 05/05. Patient had gallstones and perforated acute cholecystitis. - tot bili 3.1 on am labs - CT abdomen/pelvis 05/06: 1.5 x 2.9 x 6 point centimeters fluid collection the gallbladder fossa, suspicious for abscess, or possibly biloma. Additional pelvic ascites versus possible early developing abscess, with possible fluid collection measuring 6.6 x 3.3 cm. - HIDA scan: No evident bile leak Delayed excretion of activity from the liver which suggests hepatic dysfunction or partial biliary obstruction - Surgery consulted s/p laparoscopic cholecystectomy with ADAN drain placement on 05/[address] Bartholomew Will order a HIDA scan to evaluate for a bile leak. If positive, then he wo uld require transfer to a tertiary care facility where GI services would be available for ERCP. If negative, then we could review the CT scan with the Radiologist to determine if percutaneous drainage would be indicated. Time Spent With Patient Time with patient: 25 - 35 minutes Subjective Date/time seen: 05/06/24 08:53 Interval history: 69 year old male with no significant past medical history presents to the hospital for abdominal pain. Patient is pleasant lying in bed with family at bedside. He is tolerating his diet well denying nausea/vomiting/abdominal pain. He was endorsing abdominal cramping which resolved after a bowel movement. Patient has no other complaints denying chest pain, shortness of breath, and palpitations. Review of Systems Review of Systems: All systems reviewed & are unremarkable except as noted in HPI and below Exam Narrative: AF HR 79 RR 16 SpO2 99 BP 161/93 General: male in no acute respiratory distress who is nontoxic appearing, lying semi recumbent in bed. HEENT: Normocephalic. Atraumatic. Extraocular movement intact. Sclera clear and anicteric. No facial asymmetry. Chest: Lungs are clear to auscultation bilaterally. No wheezes or crackles. CV: Heart was regular rate and rhythm. S1/S2. No murmurs, gallops, or rubs. Abd: Abdomen was soft. Nontender. Nondistended. Hypoactive bowel sounds. Incisions are clean/dry/intact with surgical glue, no erythema/edema/discharge. ADAN drain in place with minimal serous drainage. Ext: No clubbing, cyanosis, or edema. 2+ DP pulses bilaterally. Neuro: Patient is alert.Speech is clear. Objective Data Vital Signs Vital Signs: Vital Signs - 24 hr 05/05/24 12:00 05/05/24 14:00 05/05/24 16:00 Temperature 98.1 F Pulse Rate 83 88 72 Respiratory Rate 18 Blood Pressure 148/78 H Pulse Oximetry 97 Oxygen Delivery Fraction of Inspired Oxygen 05/05/24 20:00 05/05/24 20:00 05/05/24 22:00 Temperature 99.6 F Pulse Rate 89 83 89 Respiratory Rate 16 16 Blood Pressure 156/87 H Pulse Oximetry 100 100 Oxygen Delivery Room Air Fraction of Inspired Oxygen 21 05/06/24 00:00 05/06/24 04:00 05/06/24 06:00 Temperature 98.0 F Pulse Rate 74 70 79 Respiratory Rate 16 Blood Pressure 161/93 H Pulse Oximetry 99 Oxygen Delivery Fraction of Inspired Oxygen Intake/Output Intake/Output: Intake & Output 05/03/24 05/04/24 05/05/24 05/06/24 23:59 23:59 23:59 23:59 Intake Total 1560 2690 2466 1200 Output Total 407 20 10 Balance 1153 2670 2456 1200 Meds/Results Medications: Active Medications Generic Name Dose Route Start Last Admin Trade Name Freq PRN Reason Stop Dose Admin Acetaminophen 650 mg 05/03/24 20:22 05/05/24 21:10 Acetaminophen 325 Mg Tablet PO 650 mg Q6H PRN Administration Mild Pain (1-3) or Fever Hydrocodone Bitart/Acetaminophen 1 tab 05/02/24 12:00 05/05/24 23:48 Hydrocodone/Acetaminophen (*Crx) 5-325 Mg Tablet PO 1 tab Q4H PRN Administration Pain Rated 4-6 Hydrocodone Bitart/Acetaminophen 1 tab 05/02/24 12:00 05/03/24 03:18 Hydrocodone/Acetaminophen (*Crx) 7.5-325 Mg Tablet PO 1 tab Q4H PRN Administration Pain Rated 7-10 Aspirin 81 mg 05/03/24 09:00 05/05/24 08:59 Aspirin 81 Mg Enteric Tablet PO 81 mg DAILY GRAY Administration Calcium Carbonate 200 mg 05/05/24 12:18 Calcium Carbonate (Tums) 500 Mg (200 Mg Elemental) PO Q6H PRN Indigestion Dextrose 12.5 gm 05/01/24 23:27 Dextrose 50% 25 Gm/50 Ml Syringe IV PUSH PRN PRN Hypoglycemia Protocol Enoxaparin Sodium 40 mg 05/03/24 09:00 05/05/24 08:59 Enoxaparin 40 Mg/0.4 Ml Syringe SUB-Q 40 mg DAILY GRAY Administration Glucagon 1 mg 05/01/24 23:27 Glucagon For Inj 1 Mg Vial IM PRN PRN Hypoglycemia Protocol Glucose 15 gm 05/01/24 23:27 Glucose Oral Gel 15 Gm Of Glucse In 37.5 Gm Tube PO PRN PRN Hypoglycemia Protocol Dextrose 1,000 mls @ 100 mls/hr 05/01/24 23:27 Dextrose 5% 1,000 Ml IVPB PRN PRN Hypoglycemia Protocol Ibuprofen 800 mg in 200 mls @ 400 mls/hr 05/02/24 12:00 Caldolor 800 Mg/200 Ml IVPB Q6H PRN Breakthrough Pain Rated 1-3 or NPO Piperacillin/Tazobactam/Dextrose 3.375 gm in 50 mls @ 100 mls/hr 05/02/24 12:00 05/06/24 06:23 Zosyn 3.375 Gm/Ns 50 Ml IVPB Infused Q6H GRAY Infusion Ibuprofen 600 mg 05/02/24 12:00 05/04/24 21:07 Ibuprofen 600 Mg Tablet PO 600 mg Q6H PRN Administration Pain Rated 1-3 Morphine Sulfate 2 mg 05/02/24 12:00 Morphine Sulfate (*Crx) 2 Mg/Ml Inj IV PUSH Q2H PRN Breakthrough Pain Rated 4-6 or NPO Morphine Sulfate 4 mg 05/02/24 12:00 05/02/24 15:45 Morphine Sulfate (*Crx) 4 Mg/Ml Inj IV PUSH 4 mg Q2H PRN Administration Breakthrough Pain Rated 7-10 or NPO Naloxone HCl 0.1 mg 05/02/24 12:00 Naloxone Hcl 0.4 Mg/Ml Vial IV PUSH Q2M PRN Opiate Reversal Ondansetron HCl 4 mg 05/01/24 23:27 Ondansetron Inj 4 Mg/2 Ml Vial IV PUSH Q4H PRN Nausea Ondansetron HCl 4 mg 05/05/24 12:18 Ondansetron Hcl Odt 4 Mg Tablet PO Q6H PRN Nausea And Vomiting Pantoprazole Sodium 20 mg 05/06/24 09:00 Pantoprazole Sod Sesquihydrate 20 Mg Tab PO QAM GRAY Polyethylene Glycol 17 gm 05/04/24 18:06 Polyethylene Glycol 3350 17 Gm Powd.Pack PO QAM PRN Constipation Senna/Docusate Sodium 1 tab 05/04/24 21:00 05/05/24 21:04 Senna/Docusate Sodium Tablet PO Not Given HS GRAY Senna/Docusate Sodium 1 tab 05/05/24 21:00 05/05/24 21:04 Senna/Docusate Sodium Tablet PO Not Given HS GRAY Simethicone 80 mg 05/04/24 21:00 05/05/24 21:02 Simethicone 80 Mg Tab.Chew PO 80 mg QID GRAY Administration Radiology Results: ITS Impressions Abdomen/Pelvis CT 05/06/24 06:09 Impression: 1.5 x 2.9 x 6 point centimeters fluid collection the gallbladder fossa, suspicious for abscess, or possibly biloma. Additional pelvic ascites versus possible early developing abscess, with possible fluid collection measuring 6.6 x 3.3 cm. Small right pleural effusion with bibasilar atelectatic change. Labs Labs: Laboratory Results - last 24 hr 05/06/24 06:30 WBC 6.6 RBC 3.61 L Hgb 11.2 L Hct 33.0 L MCV 91.4 MCH 31.0 MCHC 33.9 RDW 13.2 Plt Count 273 MPV 9.9 Immature Gran % (Auto) 0.9 H Neut % (Auto) 74.2 H Lymph % (Auto) 14.1 L [place] % (Auto) 7.3 Eos % (Auto) 2.9 Baso % (Auto) 0.6 Lymph # (Auto) 0.93 [place] # (Auto) 0.5 Eos # (Auto) 0.2 Baso # (Auto) 0.0 Abs Immat Gran (auto) 0.06 H Absolute Neuts (auto) 4.9 Absolute Nucleated RBC 0.000 Nucleated RBC % 0.0 Sodium 138 Potassium 3.1 L Chloride 108 H Carbon Dioxide 28 Anion Gap 2 L BUN 21 H Creatinine 1.00 Estim Creat Clear Calc 66 Estimated GFR > 60 Glucose 93 Calcium 8.0 L Total Bilirubin 3.1 H AST 58 ALT 40 Alkaline Phosphatase 315 H Total Protein 6.0 L Albumin 2.7 L Quality VTE Prophylaxis VTE prophylaxis: mechanical ordered
[2024-05-06] MEDS: ENOXAPARIN 40 MG/0.4 ML SYRINGE SUB-Q (09:27)
[2024-05-06] MEDS: PANTOPRAZOLE SOD SESQUIHYDRATE 20 MG TAB PO (09:27)
[2024-05-06] MEDS: SIMETHICONE 80 MG TAB.CHEW PO (09:27)
[2024-05-06] MEDS: ASPIRIN 81 MG ENTERIC TABLET PO (09:27)
[2024-05-06] MEDS: POTASSIUM CHLORIDE INJ 40 MEQ in SODIUM CHLORIDE 0.9% IV 500 ML 130 MEQ IVPB (10:16)
--- NOTE | 2024-05-06 10:56 | P.PNGS_ITS ---
Progress Note: A&P Assessment and Plan (1) Hyperbilirubinemia: Code(s): E80.6 - Other disorders of bilirubin metabolism Status: Acute Assessment and Plan: * Total bilirubin remains at 3.[address] scan this morning showed 4.5 x 2.8 cm fluid collection in the gallbladder fossa and some pelvic ascites measuring about 6 cm. ADAN drain has minimal output with no purulent or bilious appearing output. ADAN drain is not within the fluid collection in the gallbladder fossa on CT. * Will order a HIDA scan to evaluate for a bile leak. If this is positive, then he would require transfer to a tertiary care facility where GI services would be available for ERCP. If HIDA scan is negative, then we could review the CT scan with the Radiologist to determine if percutaneous drainage would be indicated. * Continue IV antibiotics * Will keep him NPO for HIDA scan this morning (2) Hx laparoscopic cholecystectomy: Code(s): Z90.49 - Acquired absence of other specified parts of digestive tract Status: Acute (3) Acute calculous cholecystitis: Code(s): K80.00 - Calculus of gallbladder with acute cholecystitis without obstruction Status: Acute Assessment and Plan: * S/p laparoscopic cholecystectomy for perforated acute cholecystitis. CT showed possible organizing abscess in the pelvis and an additional fluid collection in the gallbladder fossa, which could be a biloma or abscess. * HIDA scan today * Continue IV antibiotics Plan I have discussed the patient's case and plan of care with Dr. Bartholomew. Subjective Subjective Date/Time Seen: 05/06/24 10:56 Post Op day: 4 (lap cholecystectomy) Patient reports: tolerating a regular diet (low fat diet, tolerating with some nausea at times, no vomiting), voiding w/o difficulty, flatus, nausea (intermittent nausea, better this morning) and afebrile (since 05/04) Interval history: Status post laparoscopic cholecystectomy for acute perforated cholecystitis on 05/02/2024. He developed a fever after surgery and was monitored through the weekend. Total bilirubin elevated and between 3-4 in the past few days. White blood cell count has been normal for the past few days. Repeat CT scan of the abdomen and pelvis this morning showed a fluid collection in the pelvis and gallbladder fossa. He reports some bloating and mild incisional pain, but tolerable. Minimal output from ADAN drain, which appears serous this morning on exam. Exam Const: General: comfortable and no acute distress Orientation/consciousness: patient oriented x3 GI: Inspection: non-distended and other (ADAN drain with scant serous output) GI Palp: Yes Soft to palpation, Yes Tenderness to palpation present (GI) (very minimal incisional tenderness), No Guarding due to palpation present (GI), Yes No hepatosplenomegaly present and No Rebound tenderness present Auscultation: normal bowel sounds Objective Data Vital Signs Vital Signs: Vital Signs - 24 hr 05/05/24 12:00 05/05/24 14:00 05/05/24 16:00 Temperature 98.1 F Pulse Rate 83 88 72 Respiratory Rate 18 Blood Pressure 148/78 H Pulse Oximetry 97 Oxygen Delivery Fraction of Inspired Oxygen 05/05/24 20:00 05/05/24 20:00 05/05/24 22:00 Temperature 99.6 F Pulse Rate 89 83 89 Respiratory Rate 16 16 Blood Pressure 156/87 H Pulse Oximetry 100 100 Oxygen Delivery Room Air Fraction of Inspired Oxygen 21 05/06/24 00:00 05/06/24 04:00 05/06/24 06:00 Temperature 98.0 F Pulse Rate 74 70 79 Respiratory Rate 16 Blood Pressure 161/93 H Pulse Oximetry 99 Oxygen Delivery Fraction of Inspired Oxygen Intake/Output Intake/Output: Intake & Output 05/03/24 05/04/24 05/05/24 05/06/24 23:59 23:59 23:59 23:59 Intake Total 1560 2690 2466 1250 Output Total 407 20 10 Balance 1153 2670 2456 1250 Meds/Results Medications: Active Medications Generic Name Dose Route Start Last Admin Trade Name Freq PRN Reason Stop Dose Admin Acetaminophen 650 mg 05/03/24 20:22 05/05/24 21:10 Acetaminophen 325 Mg Tablet PO 650 mg Q6H PRN Administration Mild Pain (1-3) or Fever Hydrocodone Bitart/Acetaminophen 1 tab 05/02/24 12:00 05/05/24 23:48 Hydrocodone/Acetaminophen (*Crx) 5-325 Mg Tablet PO 1 tab Q4H PRN Administration Pain Rated 4-6 Hydrocodone Bitart/Acetaminophen 1 tab 05/02/24 12:00 05/03/24 03:18 Hydrocodone/Acetaminophen (*Crx) 7.5-325 Mg Tablet PO 1 tab Q4H PRN Administration Pain Rated 7-10 Aspirin 81 mg 05/03/24 09:00 05/06/24 09:27 Aspirin 81 Mg Enteric Tablet PO 81 mg DAILY GRAY Administration Calcium Carbonate 200 mg 05/05/24 12:18 Calcium Carbonate (Tums) 500 Mg (200 Mg Elemental) PO Q6H PRN Indigestion Dextrose 12.5 gm 05/01/24 23:27 Dextrose 50% 25 Gm/50 Ml Syringe IV PUSH PRN PRN Hypoglycemia Protocol Enoxaparin Sodium 40 mg 05/03/24 09:00 05/06/24 09:27 Enoxaparin 40 Mg/0.4 Ml Syringe SUB-Q 40 mg DAILY GRAY Administration Glucagon 1 mg 05/01/24 23:27 Glucagon For Inj 1 Mg Vial IM PRN PRN Hypoglycemia Protocol Glucose 15 gm 05/01/24 23:27 Glucose Oral Gel 15 Gm Of Glucse In 37.5 Gm Tube PO PRN PRN Hypoglycemia Protocol Dextrose 1,000 mls @ 100 mls/hr 05/01/24 23:27 Dextrose 5% 1,000 Ml IVPB PRN PRN Hypoglycemia Protocol Ibuprofen 800 mg in 200 mls @ 400 mls/hr 05/02/24 12:00 Caldolor 800 Mg/200 Ml IVPB Q6H PRN Breakthrough Pain Rated 1-3 or NPO Piperacillin/Tazobactam/Dextrose 3.375 gm in 50 mls @ 100 mls/hr 05/02/24 12:00 05/06/24 06:23 Zosyn 3.375 Gm/Ns 50 Ml IVPB Infused Q6H GRAY Infusion Potassium Chloride 40 meq/ 520 mls @ 130 mls/hr 05/06/24 10:20 05/06/24 10:16 Sodium Chloride IVPB 05/06/24 14:19 130 mls/hr ONCE ONE Administration Ibuprofen 600 mg 05/02/24 12:00 05/04/24 21:07 Ibuprofen 600 Mg Tablet PO 600 mg Q6H PRN Administration Pain Rated 1-3 Morphine Sulfate 2 mg 05/02/24 12:00 Morphine Sulfate (*Crx) 2 Mg/Ml Inj IV PUSH Q2H PRN Breakthrough Pain Rated 4-6 or NPO Morphine Sulfate 4 mg 05/02/24 12:00 05/02/24 15:45 Morphine Sulfate (*Crx) 4 Mg/Ml Inj IV PUSH 4 mg Q2H PRN Administration Breakthrough Pain Rated 7-10 or NPO Naloxone HCl 0.1 mg 05/02/24 12:00 Naloxone Hcl 0.4 Mg/Ml Vial IV PUSH Q2M PRN Opiate Reversal Ondansetron HCl 4 mg 05/01/24 23:27 Ondansetron Inj 4 Mg/2 Ml Vial IV PUSH Q4H PRN Nausea Ondansetron HCl 4 mg 05/05/24 12:18 Ondansetron Hcl Odt 4 Mg Tablet PO Q6H PRN Nausea And Vomiting Pantoprazole Sodium 20 mg 05/06/24 09:00 05/06/24 09:27 Pantoprazole Sod Sesquihydrate 20 Mg Tab PO 20 mg QAM GRAY Administration Polyethylene Glycol 17 gm 05/04/24 18:06 Polyethylene Glycol 3350 17 Gm Powd.Pack PO QAM PRN Constipation Senna/Docusate Sodium 1 tab 05/04/24 21:00 05/05/24 21:04 Senna/Docusate Sodium Tablet PO Not Given HS GRAY Senna/Docusate Sodium 1 tab 05/05/24 21:00 05/05/24 21:04 Senna/Docusate Sodium Tablet PO Not Given HS GRAY Simethicone 80 mg 05/04/24 21:00 05/06/24 09:27 Simethicone 80 Mg Tab.Chew PO 80 mg QID GRAY Administration Radiology Results: ITS Impressions Abdomen/Pelvis CT 05/06/24 06:09 Impression: 1.5 x 2.9 x 6 point centimeters fluid collection the gallbladder fossa, suspicious for abscess, or possibly biloma. Additional pelvic ascites versus possible early developing abscess, with possible fluid collection measuring 6.6 x 3.3 cm. Small right pleural effusion with bibasilar atelectatic change. Labs Labs: Laboratory Results - last 24 hr 05/06/24 06:30 WBC 6.6 RBC 3.61 L Hgb 11.2 L Hct 33.0 L MCV 91.4 MCH 31.0 MCHC 33.9 RDW 13.2 Plt Count 273 MPV 9.9 Immature Gran % (Auto) 0.9 H Neut % (Auto) 74.2 H Lymph % (Auto) 14.1 L [place] % (Auto) 7.3 Eos % (Auto) 2.9 Baso % (Auto) 0.6 Lymph # (Auto) 0.93 [place] # (Auto) 0.5 Eos # (Auto) 0.2 Baso # (Auto) 0.0 Abs Immat Gran (auto) 0.06 H Absolute Neuts (auto) 4.9 Absolute Nucleated RBC 0.000 Nucleated RBC % 0.0 Sodium 138 Potassium 3.1 L Chloride 108 H Carbon Dioxide 28 Anion Gap 2 L BUN 21 H Creatinine 1.00 Estim Creat Clear Calc 66 Estimated GFR > 60 Glucose 93 Calcium 8.0 L Total Bilirubin 3.1 H AST 58 ALT 40 Alkaline Phosphatase 315 H Total Protein 6.0 L Albumin 2.7 L
--- NOTE | 2024-05-06 19:48 | PC.NURSE ---
On 05/06/24, the CHARGE ATTENDANT, Smitha Davis, provided care and completed [facility] documentation on this patient. I have reviewed the CHARGE ATTENDANT's documentation and agree with the findings.
[2024-05-06] MEDS: HYDROcodone/acetaminophen (*CRX) 5-325 MG TABLET 1 TAB PO (20:55)
[2024-05-07] VITALS: PULSE 64
[2024-05-07 04:00] VITALS: PULSE 77
[2024-05-07 04:30] VITALS: BP 147/78; PULSE 75; RESP 16; TEMP 36.6; O2SAT 97
[2024-05-07] MEDS: PIPERACILLN/TAZ 3.375GM/NS50ML 3.375 GM/50 ML BAG IVPB ×2 (05:24→11:00)
[2024-05-07] MEDS: ONDANSETRON HCL ODT 4 MG TABLET PO (06:36)
[2024-05-07 07:31] LABS: Basophils Percent Auto 0.5 % (0.2-1.2); Eosinophils Absolute Auto 0.2 K/mm3 (0-0.3); Eosinophils Percent Auto 2.2 % (0-4.4); Hematocrit 32.9 % (42.0-52.0); Hemoglobin 11.2 g/dL (14.0-18.0); Immature Granulocyte Absolute 0.08 K/mm3 (0.00-0.031); Immature Granulocyte Percent A 0.9 % (0-0.5); Lymphocytes Absolute Auto 1.09 K/mm3 (0.9-3.2); Lymphocytes Percent Auto 12.5 % (18.3-44.2); Mean Corpuscular Hemoglobin 31.1 pg (26-34); Mean Corpuscular Volume 91.4 fl (80-100); Mean Platelet Volume 9.9 fl (7.4-10.4); Monocytes Absolute Auto 0.5 K/mm3 (0.1-0.6); Monocytes Percent Auto 5.4 % (2.6-8.5); Neutrophils Absolute Auto 6.9 K/mm3 (1.3-6.7); Neutrophils Percent Auto 78.5 % (45.5-73.1); Platelet Count Result 330 k/mm3 (150-375); Red Cell Distribution Width 13.3 % (11.5-14.5); White Blood Count 8.8 K/mm3 (4.5-10.0)
[2024-05-07 07:42] LABS: Alanine Aminotransferase 75 U/L (6-50); Albumin Level 2.6 g/dL (3.5-5.1); Alkaline Phosphatase 321 U/L (38-126); Anion Gap 3 mmol/L (4-12); Aspartate Amino Transferase 87 U/L (17-59); Bilirubin,Total 2.3 mg/dL (0.2-1.3); Blood Urea Nitrogen 21 mg/dL (9-20); Calcium 7.9 mg/dL (8.4-10.2); Carbon Dioxide 25 mmol/L (22-30); Chloride 109 mmol/L (98-107); Estimated CRCL calculation 66 ml/min; Estimated Glomerular Filt Rate > 60; Glucose 91 mg/dL (65-110); Potassium 3.6 mmol/L (3.4-5.0); Sodium 137 mmol/L (137-145)
[2024-05-07 07:54] LABS: Magnesium 2.2 mg/dL (1.6-2.3)
[2024-05-07 08:00] VITALS: PULSE 78
[2024-05-07] MEDS: SIMETHICONE 80 MG TAB.CHEW PO ×2 (08:00→11:59)
[2024-05-07] MEDS: ASPIRIN 81 MG ENTERIC TABLET PO (08:01)
[2024-05-07] MEDS: PANTOPRAZOLE SOD SESQUIHYDRATE 20 MG TAB PO (08:01)
--- NOTE | 2024-05-07 08:23 | P.PNIM_ITS ---
Progress Note: A&P Assessment and Plan (1) Sepsis: Qualifiers: Sepsis acute organ dysfunction status: unspecified Sepsis type: sepsis due to unspecified organism Qualified Code(s): A41.9 - Sepsis, unspecified o rganism Code(s): A41.9 - Sepsis, unspecified organism Status: Acute Assessment and Plan: Meets SIRS criteria: febrile, leukocytosis, tachycardia - lactic acid: 1.9 - s/p 2L sepsis bolus given in the ED - suspected source: cholecystitis - blood cultures drawn on 05/02: pending - antibiotics: Rocephin and Flagyl started on 05/02 - UA: ordered - CT abdomen/pelvis: acute cholecystitis Patient remains afebrile without leukocytosis. Vitals stable. (2) Acute calculous cholecystitis: Code(s): K80.00 - Calculus of gallbladder with acute cholecystitis without obstruction Status: Acute Assessment and Plan: - LFTs: tot bili 3.1, AST and ALT WNL, alk phos 315 - Lipase WNL - CT abdomen/pelvis: acute cholecystitis - Repeat CT 05/06: 1.5 x 2.9 x 6 point centimeters fluid collection the gallbladder fossa, suspicious for abscess, or possibly biloma. Additional pelvic ascites versus possible early developing abscess, with possible fluid collection measuring 6.6 x 3.3 cm. - Monitor vital signs, I and O's, check stool output, neuro status and patient is a fall risk - Monitor serum electrolytes and CBC - Monitor lactic acid - IV pain management - Gentle IV fluid resuscitation - Diet: clears - Consult general surgery for further evaluation, appreciate assistance and recommendation s/p laparoscopic cholecystectomy with ADAN drain placement on 05/[address] Bartholomew see plan for hyperbilirubinemia below (3) Hyperbilirubinemia: Code(s): E80.6 - Other disorders of bilirubin metabolism Status: Acute Assessment and Plan: bilirubin has continued to climb over the last 48 hours, peaking at 4.1 on 05/05. Patient had gallstones and perforated acute cholecystitis. - tot bili 2.3 on am labs - LFTs on am labs: AST 87, ALT 75, Alk phos 321 - CT abdomen/pelvis 05/06: 1.5 x 2.9 x 6 point centimeters fluid collection the gallbladder fossa, suspicious for abscess, or possibly biloma. Additional pelvic ascites versus possible early developing abscess, with possible fluid collection measuring 6.6 x 3.3 cm. - HIDA scan: No evident bile leak Delayed excretion of activity from the liver which suggests hepatic dysfunction or partial biliary obstruction - Surgery consulted s/p laparoscopic cholecystectomy with ADAN drain placement on 05/[address] Bartholomew Will order a HIDA scan to evaluate for a bile leak. If positive, then he would require transfer to a tertiary care facility where GI services would be available for ERCP. If negative, then we could review the CT scan with the Radiologist to determine if percutaneous drainage would be indicated. Subjective Date/time seen: 05/07/24 08:23 Interval history: 69 year old male with no significant past medical history presents to the hospital for abdominal pain. Review of Systems Review of Systems: All systems reviewed & are unremarkable except as noted in HPI and below Exam Narrative: AF HR General: male in no acute respiratory distress who is nontoxic appearing, lying semi recumbent in bed. HEENT: Normocephalic. Atraumatic. Extraocular movement intact. Sclera clear and anicteric. No facial asymmetry. Chest: Lungs are clear to auscultation bilaterally. No wheezes or crackles. CV: Heart was regular rate and rhythm. S1/S2. No murmurs, gallops, or rubs. Abd: Abdomen was soft. Nontender. Nondistended. Hypoactive bowel sounds. Incisions are clean/dry/intact with surgical glue, no erythema/edema/discharge. ADAN drain in place with minimal serous drainage. Ext: No clubbing, cyanosis, or edema. 2+ DP pulses bilaterally. Neuro: Patient is alert.Speech is clear. Objective Data Vital Signs Vital Signs: Vital Signs - 24 hr 05/06/24 09:25 05/06/24 12:00 05/06/24 14:00 Temperature 98.9 F Pulse Rate 75 78 Respiratory Rate 22 H Blood Pressure 145/78 H Pulse Oximetry 98 Oxygen Delivery Room Air Fraction of Inspired Oxygen 05/06/24 16:00 05/06/24 20:00 05/06/24 20:00 Temperature Pulse Rate 74 72 87 Respiratory Rate 16 Blood Pressure Pulse Oximetry 96 Oxygen Delivery Room Air Fraction of Inspired Oxygen 21 05/06/24 20:24 05/07/24 00:00 05/07/24 04:00 Temperature 99.5 F Pulse Rate 72 64 77 Respiratory Rate 16 Blood Pressure 142/86 H Pulse Oximetry 96 Oxygen Delivery Fraction of Inspired Oxygen 05/07/24 04:30 Temperature 97.9 F Pulse Rate 75 Respiratory Rate 16 Blood Pressure 147/78 H Pulse Oximetry 97 Oxygen Delivery Fraction of Inspired Oxygen Intake/Output Intake/Output: Intake & Output 05/04/24 05/05/24 05/06/24 05/07/24 23:59 23:59 23:59 23:59 Intake Total 2690 2466 1400 600 Output Total 20 10 20 10 Balance 2670 2456 1380 590 Meds/Results Medications: Active Medications Generic Name Dose Route Start Last Admin Trade Name Freq PRN Reason Stop Dose Admin Acetaminophen 650 mg 05/03/24 20:22 05/05/24 21:10 Acetaminophen 325 Mg Tablet PO 650 mg Q6H PRN Administration Mild Pain (1-3) or Fever Hydrocodone Bitart/Acetaminophen 1 tab 05/02/24 12:00 05/06/24 20:55 Hydrocodone/Acetaminophen (*Crx) 5-325 Mg Tablet PO 1 tab Q4H PRN Administration Pain Rated 4-6 Hydrocodone Bitart/Acetaminophen 1 tab 05/02/24 12:00 05/03/24 03:18 Hydrocodone/Acetaminophen (*Crx) 7.5-325 Mg Tablet PO 1 tab Q4H PRN Administration Pain Rated 7-10 Aspirin 81 mg 05/03/24 09:00 05/07/24 08:01 Aspirin 81 Mg Enteric Tablet PO 81 mg DAILY GRAY Administration Calcium Carbonate 200 mg 05/05/24 12:18 Calcium Carbonate (Tums) 500 Mg (200 Mg Elemental) PO Q6H PRN Indigestion Dextrose 12.5 gm 05/01/24 23:27 Dextrose 50% 25 Gm/50 Ml Syringe IV PUSH PRN PRN Hypoglycemia Protocol Enoxaparin Sodium 40 mg 05/03/24 09:00 05/07/24 07:58 Enoxaparin 40 Mg/0.4 Ml Syringe SUB-Q Not Given DAILY GRAY Glucagon 1 mg 05/01/24 23:27 Glucagon For Inj 1 Mg Vial IM PRN PRN Hypoglycemia Protocol Glucose 15 gm 05/01/24 23:27 Glucose Oral Gel 15 Gm Of Glucse In 37.5 Gm Tube PO PRN PRN Hypoglycemia Protocol Dextrose 1,000 mls @ 100 mls/hr 05/01/24 23:27 Dextrose 5% 1,000 Ml IVPB PRN PRN Hypoglycemia Protocol Ibuprofen 800 mg in 200 mls @ 400 mls/hr 05/02/24 12:00 Caldolor 800 Mg/200 Ml IVPB Q6H PRN Breakthrough Pain Rated 1-3 or NPO Piperacillin/Tazobactam/Dextrose 3.375 gm in 50 mls @ 100 mls/hr 05/02/24 12:00 05/07/24 05:54 Zosyn 3.375 Gm/Ns 50 Ml IVPB Infused Q6H GRAY Infusion Ibuprofen 600 mg 05/02/24 12:00 05/04/24 21:07 Ibuprofen 600 Mg Tablet PO 600 mg Q6H PRN Administration Pain Rated 1-3 Morphine Sulfate 2 mg 05/02/24 12:00 Morphine Sulfate (*Crx) 2 Mg/Ml Inj IV PUSH Q2H PRN Breakthrough Pain Rated 4-6 or NPO Morphine Sulfate 4 mg 05/02/24 12:00 05/02/24 15:45 Morphine Sulfate (*Crx) 4 Mg/Ml Inj IV PUSH 4 mg Q2H PRN Administration Breakthrough Pain Rated 7-10 or NPO Naloxone HCl 0.1 mg 05/02/24 12:00 Naloxone Hcl 0.4 Mg/Ml Vial IV PUSH Q2M PRN Opiate Reversal Ondansetron HCl 4 mg 05/01/24 23:27 Ondansetron Inj 4 Mg/2 Ml Vial IV PUSH Q4H PRN Nausea Ondansetron HCl 4 mg 05/05/24 12:18 05/07/24 06:36 Ondansetron Hcl Odt 4 Mg Tablet PO 4 mg Q6H PRN Administration Nausea And Vomiting Pantoprazole Sodium 20 mg 05/06/24 09:00 05/07/24 08:01 Pantoprazole Sod Sesquihydrate 20 Mg Tab PO 20 mg QAM GRAY Administration Polyethylene Glycol 17 gm 05/04/24 18:06 Polyethylene Glycol 3350 17 Gm Powd.Pack PO QAM PRN Constipation Senna/Docusate Sodium 1 tab 05/04/24 21:00 05/06/24 20:56 Senna/Docusate Sodium Tablet PO Not Given HS GRAY Senna/Docusate Sodium 1 tab 05/05/24 21:00 05/06/24 20:56 Senna/Docusate Sodium Tablet PO Not Given HS GRAY Simethicone 80 mg 05/04/24 21:00 05/07/24 08:00 Simethicone 80 Mg Tab.Chew PO 80 mg QID GRAY Administration Radiology Results: ITS Impressions Abdomen/Pelvis CT 05/06/24 06:09 Impression: 1.5 x 2.9 x 6 point centimeters fluid collection the gallbladder fossa, suspicious for abscess, or possibly biloma. Additional pelvic ascites versus possible early developing abscess, with possible fluid collection measuring 6.6 x 3.3 cm. Small right pleural effusion with bibasilar atelectatic change. Hepatobiliary Scan Nuclear Medicine 05/06/24 14:51 IMPRESSION: 1. No evident bile leak. 2. Delayed excretion of activity from the liver which suggests either hepatic dysfunction or partial biliary obstruction. Labs Labs: Laboratory Results - last 24 hr 05/07/24 07:04 WBC 8.8 RBC 3.60 L Hgb 11.2 L Hct 32.9 L MCV 91.4 MCH 31.1 MCHC 34.0 RDW 13.3 Plt Count 330 MPV 9.9 Immature Gran % (Auto) 0.9 H Neut % (Auto) 78.5 H Lymph % (Auto) 12.5 L [place] % (Auto) 5.4 Eos % (Auto) 2.2 Baso % (Auto) 0.5 Lymph # (Auto) 1.09 [place] # (Auto) 0.5 Eos # (Auto) 0.2 Baso # (Auto) 0.0 Abs Immat Gran (auto) 0.08 H Absolute Neuts (auto) 6.9 H Absolute Nucleated RBC 0.000 Nucleated RBC % 0.0 Sodium 137 Potassium 3.6 Chloride 109 H Carbon Dioxide 25 Anion Gap 3 L BUN 21 H Creatinine 1.00 Estim Creat Clear Calc 66 Estimated GFR > 60 Glucose 91 Calcium 7.9 L Magnesium 2.2 Total Bilirubin 2.3 H AST 87 H ALT 75 H Alkaline Phosphatase 321 H Total Protein 6.0 L Albumin 2.6 L Quality VTE Prophylaxis VTE prophylaxis: mechanical ordered
[2024-05-07] MEDS: ONDANSETRON INJ 4 MG/2 ML VIAL IV PUSH (10:54)
--- NOTE | 2024-05-07 11:44 | P.PNGS_ITS ---
Progress Note: A&P Assessment and Plan (1) Hyperbilirubinemia: Code(s): E80.6 - Other disorders of bilirubin metabolism Status: Acute Assessment and Plan: * HIDA scan negative for bile leak. Bilirubin trending down. Likely related to his severe cholecystitis. Clinically improving, WBC count normal and he has been afebrile for a few days. * ADAN drain with minimal serous output. Will remove ADAN drain today. * He is surgically stable for discharge on a low fat diet and oral antibiotics. Follow-up with Dr. Bartholomew in 2 weeks. (2) Hx laparoscopic cholecystectomy: Code(s): Z90.49 - Acquired absence of other specified parts of digestive tract Status: Acute (3) Acute calculous cholecystitis: Code(s): K80.00 - Calculus of gallbladder with acute cholecystitis without obstruction Status: Acute Assessment and Plan: * S/p laparoscopic cholecystectomy for perforated acute cholecystitis. CT yesterday showed a fluid collection in the gallbladder fossa and possible organizing abscess in the pelvis. He is clinically stable and afebrile. Will plan to discharge on 10 days of oral antibiotics. Plan I have discussed the patient's case and plan of care with Dr. Bartholomew. Subjective Subjective Date/Time Seen: 05/07/24 11:44 Post Op day: 5 (Laparoscopic cholecystectomy) Patient reports: no new complaints, feels better and afebrile Interval history: Patient reports feeling well today. He took a pain pill last night because he thought it would help him sleep, but he has not been having any significant abdominal pain. He reports cramping gas pains and some nausea before bowel movements, that is completely alleviated after he moved his bowels. He had 4 BMs yesterday and felt better after this. He has not eaten much this morning for breakfast, but due to the food not tasting good. He has an appetite and states he feels like he is tolerating his diet well. No vomiting, no fevers. No other complaints. He is tolerating activity well. No acute issues. He has had minimal output from the ADAN drain. 30 cc in the past 24 hours. Drainage appears serous this morning. Exam Const: General: comfortable and no acute distress Orientation/consciousness: patient oriented x3 GI: Inspection: non-distended, incision (incisions dry and glue intact, no erythema) and other (ADAN drain with scant serous drainage) GI Palp: Yes Soft to palpation, No Tenderness to palpation present (GI), No Guarding due to palpation present (GI) and No Rebound tenderness present Auscultation: normal bowel sounds Objective Data Vital Signs Vital Signs: Vital Signs - 24 hr 05/06/24 12:00 05/06/24 14:00 05/06/24 16:00 Temperature 98.9 F Pulse Rate 75 78 74 Respiratory Rate 22 H Blood Pressure 145/78 H Pulse Oximetry 98 Oxygen Delivery Fraction of Inspired Oxygen 05/06/24 20:00 05/06/24 20:00 05/06/24 20:24 Temperature 99.5 F Pulse Rate 72 87 72 Respiratory Rate 16 16 Blood Pressure 142/86 H Pulse Oximetry 96 96 Oxygen Delivery Room Air Fraction of Inspired Oxygen 21 05/07/24 00:00 05/07/24 04:00 05/07/24 04:30 Temperature 97.9 F Pulse Rate 64 77 75 Respiratory Rate 16 Blood Pressure 147/78 H Pulse Oximetry 97 Oxygen Delivery Fraction of Inspired Oxygen 05/07/24 08:00 Temperature Pulse Rate 78 Respiratory Rate Blood Pressure Pulse Oximetry Oxygen Delivery Fraction of Inspired Oxygen Intake/Output Intake/Output: Intake & Output 05/04/24 05/05/24 05/06/24 05/07/24 23:59 23:59 23:59 23:59 Intake Total 2690 2466 1400 650 Output Total 20 10 20 10 Balance 2670 2456 1380 640 Meds/Results Medications: Active Medications Generic Name Dose Route Start Last Admin Trade Name Freq PRN Reason Stop Dose Admin Acetaminophen 650 mg 05/03/24 20:22 05/05/24 21:10 Acetaminophen 325 Mg Tablet PO 650 mg Q6H PRN Administration Mild Pain (1-3) or Fever Hydrocodone Bitart/Acetaminophen 1 tab 05/02/24 12:00 05/06/24 20:55 Hydrocodone/Acetaminophen (*Crx) 5-325 Mg Tablet PO 1 tab Q4H PRN Administration Pain Rated 4-6 Hydrocodone Bitart/Acetaminophen 1 tab 05/02/24 12:00 05/03/24 03:18 Hydrocodone/Acetaminophen (*Crx) 7.5-325 Mg Tablet PO 1 tab Q4H PRN Administration Pain Rated 7-10 Aspirin 81 mg 05/03/24 09:00 05/07/24 08:01 Aspirin 81 Mg Enteric Tablet PO 81 mg DAILY GRAY Administration Calcium Carbonate 200 mg 05/05/24 12:18 Calcium Carbonate (Tums) 500 Mg (200 Mg Elemental) PO Q6H PRN Indigestion Dextrose 12.5 gm 05/01/24 23:27 Dextrose 50% 25 Gm/50 Ml Syringe IV PUSH PRN PRN Hypoglycemia Protocol Enoxaparin Sodium 40 mg 05/03/24 09:00 05/07/24 07:58 Enoxaparin 40 Mg/0.4 Ml Syringe SUB-Q Not Given DAILY GRAY Glucagon 1 mg 05/01/24 23:27 Glucagon For Inj 1 Mg Vial IM PRN PRN Hypoglycemia Protocol Glucose 15 gm 05/01/24 23:27 Glucose Oral Gel 15 Gm Of Glucse In 37.5 Gm Tube PO PRN PRN Hypoglycemia Protocol Dextrose 1,000 mls @ 100 mls/hr 05/01/24 23:27 Dextrose 5% 1,000 Ml IVPB PRN PRN Hypoglycemia Protocol Ibuprofen 800 mg in 200 mls @ 400 mls/hr 05/02/24 12:00 Caldolor 800 Mg/200 Ml IVPB Q6H PRN Breakthrough Pain Rated 1-3 or NPO Piperacillin/Tazobactam/Dextrose 3.375 gm in 50 mls @ 100 mls/hr 05/02/24 12:00 05/07/24 11:30 Zosyn 3.375 Gm/Ns 50 Ml IVPB Infused Q6H GRAY Infusion Ibuprofen 600 mg 05/02/24 12:00 05/04/24 21:07 Ibuprofen 600 Mg Tablet PO 600 mg Q6H PRN Administration Pain Rated 1-3 Morphine Sulfate 2 mg 05/02/24 12:00 Morphine Sulfate (*Crx) 2 Mg/Ml Inj IV PUSH Q2H PRN Breakthrough Pain Rated 4-6 or NPO Morphine Sulfate 4 mg 05/02/24 12:00 05/02/24 15:45 Morphine Sulfate (*Crx) 4 Mg/Ml Inj IV PUSH 4 mg Q2H PRN Administration Breakthrough Pain Rated 7-10 or NPO Naloxone HCl 0.1 mg 05/02/24 12:00 Naloxone Hcl 0.4 Mg/Ml Vial IV PUSH Q2M PRN Opiate Reversal Ondansetron HCl 4 mg 05/01/24 23:27 05/07/24 10:54 Ondansetron Inj 4 Mg/2 Ml Vial IV PUSH 4 mg Q4H PRN Administration Nausea Ondansetron HCl 4 mg 05/05/24 12:18 05/07/24 06:36 Ondansetron Hcl Odt 4 Mg Tablet PO 4 mg Q6H PRN Administration Nausea And Vomiting Pantoprazole Sodium 20 mg 05/06/24 09:00 05/07/24 08:01 Pantoprazole Sod Sesquihydrate 20 Mg Tab PO 20 mg QAM GRAY Administration Polyethylene Glycol 17 gm 05/04/24 18:06 Polyethylene Glycol 3350 17 Gm Powd.Pack PO QAM PRN Constipation Senna/Docusate Sodium 1 tab 05/04/24 21:00 05/06/24 20:56 Senna/Docusate Sodium Tablet PO Not Given HS GRAY Senna/Docusate Sodium 1 tab 05/05/24 21:00 05/06/24 20:56 Senna/Docusate Sodium Tablet PO Not Given HS GRAY Simethicone 80 mg 05/04/24 21:00 05/07/24 08:00 Simethicone 80 Mg Tab.Chew PO 80 mg QID GRAY Administration Radiology Results: ITS Impressions Abdomen/Pelvis CT 05/06/24 06:09 Impression: 1.5 x 2.9 x 6 point centimeters fluid collection the gallbladder fossa, suspicious for abscess, or possibly biloma. Additional pelvic ascites versus possible early developing abscess, with possible fluid collection measuring 6.6 x 3.3 cm. Small right pleural effusion with bibasilar atelectatic change. Hepatobiliary Scan Nuclear Medicine 05/06/24 14:51 IMPRESSION: 1. No evident bile leak. 2. Delayed excretion of activity from the liver which suggests either hepatic dysfunction or partial biliary obstruction. Labs Labs: Laboratory Results - last 24 hr 05/07/24 07:04 WBC 8.8 RBC 3.60 L Hgb 11.2 L Hct 32.9 L MCV 91.4 MCH 31.1 MCHC 34.0 RDW 13.3 Plt Count 330 MPV 9.9 Immature Gran % (Auto) 0.9 H Neut % (Auto) 78.5 H Lymph % (Auto) 12.5 L Barnes % (Auto) 5.4 Eos % (Auto) 2.2 Baso % (Auto) 0.5 Lymph # (Auto) 1.09 Barnes # (Auto) 0.5 Eos # (Auto) 0.2 Baso # (Auto) 0.0 Abs Immat Gran (auto) 0.08 H Absolute Neuts (auto) 6.9 H Absolute Nucleated RBC 0.000 Nucleated RBC % 0.0 Sodium 137 Potassium 3.6 Chloride 109 H Carbon Dioxide 25 Anion Gap 3 L BUN 21 H Creatinine 1.00 Estim Creat Clear Calc 66 Estimated GFR > 60 Glucose 91 Calcium 7.9 L Magnesium 2.2 Total Bilirubin 2.3 H AST 87 H ALT 75 H Alkaline Phosphatase 321 H Total Protein 6.0 L Albumin 2.6 L
[2024-05-07] MEDS: ACETAMINOPHEN 325 MG TABLET 650 MG PO (11:54)
--- NOTE | 2024-05-07 14:00 | PM.DS ---
DS: Admitting Diagnosis Discharge Date 05/07/2024 Admitting Diagnosis Sepsis Acute calculous cholecystitis Hyperbilirubinemia DS: Discharge Diagnosis Discharge Diagnosis (1) Sepsis: Qualifiers: Sepsis acute organ dysfunction status: unspecified Sepsis type: sepsis due to unspecified organism Qualified Code(s): A41.9 - Sepsis, unspecified organism Code(s): A41.9 - Sepsis, unspecified organism Status: Acute (2) Acute calculous cholecystitis: Code(s): K80.00 - Calculus of gallbladder with acute cholecystitis without obstruction Status: Acute (3) Hyperbilirubinemia: Code(s): E80.6 - Other disorders of bilirubin metabolism Status: Acute DS: Summary Hospital Course Reason for hospitalization: Sepsis Acute calculous cholecystitis Hyperbilirubinemia Hospital Course: 69 year old male with no significant past medical history presents to the hospital for abdominal pain. Patient was meeting sepsis criteria on admission with febrile, leukocytosis, tachycardia. Received 2L sepsis bolus in the ED. Blood cultures obtained and negative. Started on IV antibiotics later transitioned to oral antibiotics at time of discharge to complete the course. CT showed acute cholecystitis. Surgery consulted and patient underwent a laparoscopic cholecystectomy with ADAN drain placement on 05/[address] Brian. During admission patients bili continued to climb, peaking at 4.1 on 05/05. Repeat CT showed 1.5 x 2.9 x 6 point centimeters fluid collection the gallbladder fossa, suspicious for abscess, or possibly biloma and additional pelvic ascites versus possible early developing abscess, with possible fluid collection measuring 6.6 x 3.3. HIDA scan ordered to rule out bile leak. HIDA scan showed no evident bile leak, delayed excretion of activity from the liver which suggests hepatic dysfunction or partial biliary obstruction. Bilirubin started trending down. Elevated bilirubin was likely related to his severe cholecystitis. ADAN drain was removed on 05/07. Per surgery patient was surgically stable for discharge on a low fat diet and oral antibiotics with follow up in office in 2 weeks. At time of discharge patient had no complaints denying chest pain, shortness of breath and palpitations. He was tolerating his diet well denying nausea/vomiting and increased abdominal pain. Patient discharged in a stable condition. He is to complete his antibiotics as prescribed and follow up with surgery and his PCP as scheduled. Status at Discharge Functional status at discharge: independent ambulation Time Spent with Patient Time attestation: Total time spent providing and/or coordinating discharge services: Time spent: Greater than 30 minutes Exam Narrative: AF HR 75 RR 16 SPO2 97 BP 147/78 General: male in no acute respiratory distress who is nontoxic appearing, lying semi recumbent in bed. HEENT: Normocephalic. Atraumatic. Extraocular movement intact. Sclera clear and anicteric. No facial asymmetry. Chest: Lungs are clear to auscultation bilaterally. No wheezes or crackles. CV: Heart was regular rate and rhythm. S1/S2. No murmurs, gallops, or rubs. Abd: Abdomen was soft. Nontender. Nondistended. Hypoactive bowel sounds. Incisions are clean/dry/intact with surgical glue, no erythema/edema/discharge. ADAN drain in place with minimal serous drainage (later discontinued by surgery) DS: Data Data Completed and Pending Completed studies during hospitalization: Abdomen pelvis CT abdomen pelvis CT hepatobiliary scan nuclear medicine Pending studies at discharge: Pending at discharge 05/02/24 09:19 Surgical [PTH] Routine Labs on day of discharge: Labs from last 24 hours 05/07/24 07:04 WBC 8.8 RBC 3.60 L Hgb 11.2 L Hct 32.9 L MCV 91.4 MCH 31.1 MCHC 34.0 RDW 13.3 Plt Count 330 MPV 9.9 Immature Gran % (Auto) 0.9 H Neut % (Auto) 78.5 H Lymph % (Auto) 12.[address] [place] % (Auto) 5.4 Eos % (Auto) 2.2 Baso % (Auto) 0.5 Lymph # (Auto) 1.09 [place] # (Auto) 0.5 Eos # (Auto) 0.2 Baso # (Auto) 0.0 Abs Immat Gran (auto) 0.08 H Absolute Neuts (auto) 6.9 H Absolute Nucleated RBC 0.000 Nucleated RBC % 0.0 Sodium 137 Potassium 3.6 Chloride 109 H Carbon Dioxide 25 Anion Gap 3 L BUN 21 H Creatinine 1.00 Estim Creat Clear Calc 66 Estimated GFR > 60 Glucose 91 Calcium 7.9 L Magnesium 2.2 Total Bilirubin 2.3 H AST 87 H ALT 75 H Alkaline Phosphatase 321 H Total Protein 6.0 L Albumin 2.6 L Preliminary micro results at discharge 05/02/24 00:31 Blood Culture - Preliminary Blood 05/02/24 00:31 Blood Culture - Preliminary Blood Discharge Plan Discharge Attending physician on discharge: Luna Liu Consulting providers: Sung Brian; Alexey Dupree; Vikram Hurtado; Herb Melvin; Yaneli Alegria; Arnol Rodriguez; Luna Liu; Bekah Gonzalez; Lazaro Franklin V.; Curry Mata; Randal Navarrete Discharging Clinician: Luna Liu Anticipated Discharge Date/Time: 05/05/24 15:07 Patient Disposition: Home, Self-Care Activity: as tolerated and other - see discharge instructions Diet: low fat Wound Care Instructions: other - see discharge instructions Discharge Instructions: DISCHARGE INSTRUCTION SHEET FOR GALLBLADDER AND APPENDIX SURGERIES DR. BRIAN 1. Change the gauze dressing once daily for the next 3-4 days over the incision where your drain was located. You may shower over your incisions with mild soap and water starting tomorrow. If there is no drainage from the drain incision by this weekend, then you can leave this open to air. 2. Call the surgeon's office for: Wound increasingly painful or bleeding Vomiting Fever of greater than 101 degrees 3. You may take 1 oz. (30 ml) Milk of Magnesia or MiraLax 17g 1 to 2 times daily as needed for constipation. 4. No heavy lifting > 10-15 pounds x 2 weeks for laparoscopic cholecystectomy or appendectomy. 5. No driving for 3 days or while taking narcotic pain medications. 6. Ice to surgical site for 48 hours (30 min on, then 30 min off). 7. Up walking 10-30 minutes three times per day. 8. Resume previous home medications. 9. Follow-up with Dr. Brian in 2 weeks in the office. Call for an appointment. ([phone]) 10. Oral pain medication prescription was sent to the pharmacy. Take Tylenol 500mg every 6 hours and Ibuprofen 600mg every 6 hours as needed for pain. 11. Low fat diet for 2 weeks. Return to the emergency department if he developed sudden shortness breath, chest pain, nausea, vomiting or intractable diarrhea. Monitor site for infection, erythema, warmth, purulence drainage, fever greater than 101.5 Thank you for choosing [facility] for your healthcare needs Patient Instructions: Antibiotic Form, Laparoscopic Cholecystectomy (GEN) Patient Language: Divehi Stand Alone Forms: General Discharge Information Follow-up/Referrals: Donte Loaiza MD [Primary Care Provider] - 1 Week Sung Brian DO [Physician] - 2 Weeks (in 1-2 weeks time ) Discharge Medications: New polyethylene glycol 3350 [Miralax] 17 gram Powder In Packet 17 g PO QAM PRN (Reason: Constipation) Qty: 30 0RF pantoprazole [Protonix] 20 mg Tablet,Delayed Release (Dr/Ec) 20 mg PO QAM Qty: 30 0RF ibuprofen 600 mg Tablet 600 mg PO Q8-10H PRN (Reason: Pain Rated 1-3) Qty: 30 0RF simethicone 80 mg Tablet,Chewable 80 mg PO QID Qty: 30 0RF amoxicillin-pot clavulanate [Augmentin] 500-125 mg tablet 1 tablet PO Q12H Qty: 20 0RF hydrocodone-acetaminophen 5-325 mg Tablet 1 tablet PO Q8-10H PRN (Reason: Pain Rated 4-6) Qty: 12 0RF Continued aspirin [Adult Low Dose Aspirin] 81 mg tablet,delayed release (DR/EC) 81 mg PO DAILY multivitamin [Daily Multi-Vitamin] Tablet 1 tablet PO DAILY Date of admission: 05/03/24 09:14 Primary Care Provider: Donte Loaiza Admitting Provider: Marilin Johnson V. Attending physician on admission: Peggy Smith Condition: Stable Hospitalist MIPS Heart Failure (Exclusion) Patient has history of Heart Transplant or Left Ventricular Assistive Device?: No IF YES, STOP HERE Heart Failure (Qualifier) Patient has current or prior documentation of LVEF less than or equal to 40%, or mod/servere depressed LVSF?: No IF NO, STOP HERE
== END 2024-05-07 14:28 | disposition home or self-care (01) | DRG 418 ==
LOC: ANHED 23:21 → ANH3MEDSUR 23:48
PROVIDERS: Nurse Practitioner Family; Surgery; Admitting Provider Internal Medicine; Emergency Provider Physician Assistant; PCP Emergency Medicine; Visit Provider Student in an Organized Health Care Education/Training Program
PROC: 0FT44ZZ Resection of Gallbladder, Percutaneous Endoscopic Approach (ICD-10-PCS; CPT 47562; principal; 2024-05-02 08:30)
DX: K80.00 Calculus of gallbladder with acute cholecystitis without obstruction (principal); J95.89 Other postprocedural complications and disorders of respiratory system, not elsewhere classified; K82.A2 Perforation of gallbladder in cholecystitis; E80.6 Other disorders of bilirubin metabolism; E78.00 Pure hypercholesterolemia, unspecified; E03.8 Other specified hypothyroidism; Z20.822 Contact with and (suspected) exposure to COVID-19; Z87.891 Personal history of nicotine dependence; Z79.82 Long term (current) use of aspirin
CPT/HCPCS: 36415; 74177; 78226; 80053; 81001; 83605; 83690; 83735; 85025; 87040; 87637; 88304; 96361; 96374; 96375; 96376; 99285; A9270; A9537; G0378; J0330; J0696; J1171; J1650; J1836; J2003; J2250; J2270; J2405; J2543; J2704; J3010; J3480; J7030; J7040; J7120; Q9967

== ENCOUNTER 2024-05-21 08:21 | Outpatient (CLI) | payer MEDICARE, SELFPAY ==
[2024-05-21 23:05] LABS: Free T4 Free Thyroxine Reflex 0.89 ng/dL (0.78-2.19)
[2024-05-22 00:08] LABS: Alanine Aminotransferase 27 U/L (6-50); Albumin Level 3.5 g/dL (3.5-5.1); Alkaline Phosphatase 157 U/L (38-126); Aspartate Amino Transferase 20 U/L (17-59); Bilirubin,Total 0.7 mg/dL (0.2-1.3)
[2024-05-22 00:36] LABS: Total Triiodothyronine (T3) 1.25 NG/ML (0.97-1.69)
== END 2024-05-21 08:22 | disposition home or self-care (01) ==
LOC: ANHGOSHLAB 08:23
PROVIDERS: Surgery; PCP Emergency Medicine; Visit Provider Nurse Practitioner Family
DX: E03.9 Hypothyroidism, unspecified (principal); K80.00 Calculus of gallbladder with acute cholecystitis without obstruction
CPT/HCPCS: 36415; 80076; 84439; 84443; 84480

== ENCOUNTER 2024-12-25 08:27 | Outpatient (CLI) | payer MEDICARE, SELFPAY ==
[2024-12-25 12:53] LABS: Hematocrit 45.6 % (42.0-52.0); Hemoglobin 15.6 g/dL (14.0-18.0); Immature Granulocyte Percent A 0.3 % (0-0.5); Lymphocytes Absolute Auto 2.08 K/mm3 (0.9-3.2); Mean Corpuscular HGB Conc 34.2 g/dl (32-36); Mean Corpuscular Hemoglobin 30.8 pg (26-34); Mean Corpuscular Volume 90.1 fl (80-100); Nucleated Red Blood Cells Absolute Auto 0.000 K/mm3 (0.0-0.012); Nucleated Red Blood Cells Perc 0.0 % (0.0-0.2); Platelet Count Result 211 k/mm3 (150-375); Red Blood Count 5.06 M/mm3 (4.6-6.20); White Blood Count 6.7 K/mm3 (4.5-10.0)
[2024-12-25 14:36] LABS: Alanine Aminotransferase 14 U/L (6-50); Albumin Level 3.9 g/dL (3.5-5.1); Alkaline Phosphatase 69 U/L (38-126); Anion Gap 7 mmol/L (4-12); Aspartate Amino Transferase 36 U/L (17-59); Bilirubin,Total 0.7 mg/dL (0.2-1.3); Blood Urea Nitrogen 13 mg/dL (9-20); Calcium 8.9 mg/dL (8.4-10.2); Carbon Dioxide 25 mmol/L (22-30); Chloride 108 mmol/L (98-107); Cholesterol 196 mg/dL (0-200); Estimated Glomerular Filt Rate > 60; Glucose 83 mg/dL (65-110); HDL Direct 41 mg/dL; Potassium 3.6 mmol/L (3.4-5.0); Sodium 140 mmol/L (137-145); Total Protein 6.4 g/dL (6.3-8.2); Triglycerides 115 mg/dL (<150)
[2024-12-25 15:08] LABS: Prostate Specific Antigen 4.0 ng/mL (< OR = 4.0); Thyroid Stimulating Hormone 5.240 uIU/mL (0.465-4.680)
== END 2024-12-25 08:28 | disposition home or self-care (01) ==
LOC: ANHGOSHLAB 08:28
PROVIDERS: PCP Family Medicine; Visit Provider Nurse Practitioner Family
DX: Z12.5 Encounter for screening for malignant neoplasm of prostate (principal); E78.00 Pure hypercholesterolemia, unspecified; E03.8 Other specified hypothyroidism; E80.6 Other disorders of bilirubin metabolism
CPT/HCPCS: 36415; 80053; 80061; 84153; 84443; 85025; G0103